=== PATIENT | male | born 1945 | race Caucasian/White ===

== ENCOUNTER → 2017-04-22 | Outpatient (CLI) | payer OTHER ==
[~2017-04-22] MED LIST: AMLO-110 PO; APPLTAB2 PO; ASCO500T87 PO; ASPI81TA28 PO; CLOB0.0529 EX; CMD5 PO; FRS/40 PO; GLUC10007 PO; GLUCTAB7 PO; LISI40TA PO; LSN40 PO; METR0.754 TOP; MULT-506 PO; OXYC-57 PO; PRLSR20 PO; VITA1TAB12 PO; VTMD1000 PO; WARF5TAB7 PO; [UNRECOGNIZED DRUG - CODE]
== END | disposition home or self-care (01) ==
LOC: C.RDSM 09:20
PROVIDERS: ATTEND Orthopaedic Surgery Sports Medicine
DX: M25.511 Pain in right shoulder (principal)

== ENCOUNTER → 2017-05-03 | Outpatient (CLI) | payer OTHER ==
[2017-04-29 15:06] VITALS: Ht 180.3 cm; Wt 84.1 kg
[~2017-05-03] VITALS: Ht 180.3 cm; Wt 84.1 kg
[~2017-05-03] MED LIST changes: -CMD5 PO; -GLUC10007 PO; -LSN40 PO; -[UNRECOGNIZED DRUG - CODE]
[2017-05-03 16:26] LABS: BASO % 1.2 %; BASO ABS # 0.12 K/uL (0-0.2); COMPLETE YES; EOS % 3.9 %; HEMATOCRIT 45.5 % (42-52); IG% 0.3 %; LYMPH % 25.4 %; LYMPH ABS # 2.56 K/uL (1.2-3.4); MEAN CELL VOLUME 90.8 fL (80-100); MEAN CORPUSCULAR HEMOGLOBIN 29.7 pg (25-34); MEAN CORPUSCULAR HGB CONC 32.7 g/dl (32-36); MEAN PLATELET VOLUME 9.2 fL (7.4-10.4); MONO % 8.4 %; NEUT % 60.8 %; PLATELET COUNT 266 K/uL (130-400); RED BLOOD COUNT 5.01 M/uL (4.7-6.1); WHITE BLOOD COUNT 10.07 K/uL (4.8-10.8)
--- NOTE | 2017-05-03 16:41 | History and Physical ---
History & Physical Date May 03, 2017. Chief Complaint Right shoulder pain s/p fall History of Present Illness The patient is a 71 year old male with complaints of right shoulder pain and weakness s/p fall. Denies prior history of right shoulder injury or issues. Denies numbness or tingling. Reports symptoms affecting his life on a daily basis. Past Medical/Surgical History Medical Problems: (1) Cyst (2) Osteoarthritis (3) Radius distal fracture (4) Reflux (5) Hypertension (6) Atrial Fibrillation Surgical History (1) Hernia repair (2) Cataract surgery Additional History Hepatic Disease: No Endocrine Disorder: No Kidney Disease: No Hypertension: Yes Heart Disease: No Bleeding Tendencies: On chronic Warfarin secondary to A-Fib Infectious Diseases: No Other: Denies headache, chest pain, shortness of breath, fever, chills, night sweats Allergies Coded Allergies: Prednisone (Verified Allergy, Unknown, SWELLING,SICK TO STOMACH, 04/29/17) Home Medications Scheduled Amlodipine (Norvasc), 5 MG PO QAM Apple Cider Vinegar-Green Tea- (Apple Cider Vinegar Plus), 2 TABS PO QAM Ascorbic Acid (Vitamin C Tr/Corin Hips), 500 MG PO QAM Aspirin (Aspirin Ec), 81 MG PO QAM Cholecalciferol (Vitamin D3), 1 TAB PO QAM Furosemide (Lasix), 40 MG PO QAM Hmvqpnzvbbn-Elepunafwyk-Qlz C- (Glucosamine Chondroitin), 1 TAB PO QAM Lisinopril (Zestril), 40 MG PO QAM Multivitamin (Multivitamin), 1 TAB PO QAM Vitamin E (Vitamin E), 1 TAB PO QAM Warfarin Sod (Jantoven), 5 MG PO QPM Scheduled PRN Clobetasol Propionate (Clobetasol Propionate), 1 APPLN EX BID PRN for Documentation Metronidazole (Topical) (Metrocream), 1 APPLN TOP BID PRN for PRN Omeprazole (Prilosec), 20 MG PO DAILY PRN for Indigestion Physical Examination Skin: warm/dry, no rash Eyes: normal inspection, + pertinent finding (wearing corrective lenses/ glasses ) ENT: normal ENT inspection, + pertinent finding (dentures, no evidence of exudates, erythema) Head: normocephalic Respiratory/Chest: lungs clear, normal breath sounds, no respiratory distress Cardiovascular: no edema, + systolic murmur (appears to be a faint systolic murmur, diffucult to appreciate on auscultation ), + irregularly irregular, + abnormal rhythm Abdomen / GI: normal bowel sounds, non tender Extremities: normal inspection, + pertinent finding (RIGHT SHOULDER: significant decreased range of motion, difficult to perform provocative testing , such as a Vijaya's test, [place]out[place]'s, Neer, Pinzon, Crossbody, and liftoff. AC joint is nontender. Tenderness noted over the LHB tendon. Elbow atraumatic.) Neurologic/Psych: no motor/sensory deficits, alert, oriented x 3 Diagnosis Right shoulder rotator cuff tear, biceps tendinosis Plan of Treatment Alberto will undergo a Right shoulder athroscopy, rotator cuff and labral repair vs. debridement, biceps tenotomy vs. tenodesis, subacromial decompression, exam under anesthesia by Dr. Quintin Sims MD from [facility] at the [facility] on 05/17/17. [facility] will obtain pre-operative testing at the [facility] with EKG, CBC, BUN, Creatinine, Lytes, PT/INR on 05/03/17. Medical clearance by PCP Dr. Bradley and Cardiology Dr. Howard are to be obtained the week of 05/09/17 and 05/10/17, respectively, along with a stress test on . [facility] has been advised to discontinue his Warfarin 5 days pre-operatively by his PCP and will also need to determine whether he requires bridging during those 5 days without Warfarin. He is to discontinue his Aspirin 7-10 days pre- operatively. He can take his Amlodipine the AM of surgery with a sip of water per Preadmission Testing. This PAT interview took place over the phone on advising of which medications to stop and take. No other medications the morning of surgery. Physical therapy begins postop day [address] Sims at [facility] 2 weeks after surgery for suture removal and post-op check.
[2017-05-03 16:47] LABS: BUN/CREATININE RATIO 13.2 (10-20); CALCIUM 8.9 mg/dl (8.5-10.1); CREATININE 0.99 mg/dl (0.60-1.40); POTASSIUM 3.6 mmol/L (3.5-5.1)
[2017-05-03 16:56] LABS: INR 2.2 (0.9-1.1); PARTIAL THROMBOPLASTIN RATIO 1.9; PROTHROMBIN TIME (PATIENT) 24.4 SECONDS (9.0-12.0)
== END | disposition home or self-care (01) ==
LOC: C.LAB 08:00 → EDSTATUS 05-20 10:21
PROVIDERS: ATTEND Orthopaedic Surgery Sports Medicine
DX: Z01.818 Encounter for other preprocedural examination (principal)

== ENCOUNTER 2017-05-20 10:40 | Observation (INO) | payer OTHER ==
[2017-05-18 14:26] VITALS: BMI 25.0
--- NOTE | 2017-05-19 17:18 | HISTORY & PHYSICAL EXAMINATION ---
DATE OF ADMISSION: 05/20/2017 HISTORY AND PHYSICAL ADMISSION NOTE CHIEF COMPLAINT: Right rotator cuff tear. HISTORY OF PRESENT ILLNESS: Alberto is a pleasant 72-year-old right hand dominant male who sustained a fall in his garage. 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 He tripped and fell, landed on his right shoulder and significant pain and discomfort. He was seen by another provider in the area, but unfortunately due to insurance reasons, was unable to proceed with surgery. Ultrasound of the shoulder did show a supraspinatus rotator cuff tear. After failing conservative treatment, he has elected to proceed with arthroscopy. PAST MEDICAL HISTORY: Significant for atrial fibrillation and hypertension. PAST SURGICAL HISTORY: Significant for a hernia repair, a cyst removed from his tailbone and cataracts to both eyes. ALLERGIES: PREDNISONE. MEDICATIONS: Include lisinopril, amlodipine, aspirin, Coumadin, and Lasix. FAMILY HISTORY: Noncontributory. SOCIAL HISTORY: He is , never drinks. Denies any tobacco or drug use. He is active and has 2 kids. REVIEW OF SYSTEMS: He complains of right shoulder pain and weakness. All other pertinent review of systems are negative. PHYSICAL EXAMINATION: GENERAL: He is awake, alert and oriented x3. He is in no apparent distress. He is very pleasant. HEENT: Pupils are equal, round and reactive to light. Extraocular motion intact. Oral mucosa is pink and moist. HEART: Regular rate per radial pulse. LUNGS: Corin symmetrically bilaterally with no audible breath sounds. ABDOMEN: Soft, nontender, nondistended. MUSCULOSKELETAL: On physical examination of the right shoulder, he has decreased active range of motion with about 110 degrees of forward flexion, 100 degrees of abduction. He has 4/5 muscle strength with full can testing and external rotation, positive belly press test. Significant tenderness to palpation of the far anterior lateral subacromial space, mild biceps patricia tenderness. No AC pain. IMAGING: Ultrasound report reviewed in the office shows he has a full thickness supraspinatus tear. No signs of any subscapularis pathology. IMPRESSION: Large right rotator cuff tear. PLAN: Will proceed with a right shoulder arthroscopy to include rotator cuff repair. Postoperatively, he will be placed in an arm sling and discharged to home on oral pain medications.
[~2017-05-20] VITALS: Ht 177.8 cm; Wt 86.0 kg
[2017-05-20] VITALS (8 sets, daily range): BP systolic 109–150; BP diastolic 65–82; PULSE 73–89; TEMP 36.7–36.9; O2SAT 95–97; Ht 177.8 cm; Wt 86.0 kg
[~2017-05-20 10:40] MED LIST changes: +CEFAZOLIN 2000 MG/60 ML D5W 60 ML IV SCH; +LACTATED RINGER'S 1000ML 1,000 ML IV SCH; -OXYC-57 PO; +ROPIVACAINE 0.5% 5 MG/ML 30 ML VIAL ONE
--- NOTE | 2017-05-20 10:56 | History & Physical Bridge Note ---
H&P Re-Evaluation Bridge Note: I have examined the patient, reviewed the History & Physical and in the interval since the performance of the History & Physical I have noted the following changes of clinical significance: No changes noted
[2017-05-20] MEDS ORDERED: MIDAZOLAM HCL 1 MG/ML 2ML VIAL ONE (11:56)
[2017-05-20] MEDS ORDERED: FENTANYL CITRATE INJ 50 MCG/1 ML 2 ML VIAL ONE ×2 (11:56→14:13)
[2017-05-20] MEDS: LACTATED RINGER'S 1000ML IV SCH (11:57)
[2017-05-20] MEDS ORDERED: EpINEphrine HCL INJ 1 MG/ML 5ML SYRINGE ONE (12:26)
[2017-05-20] MEDS ORDERED: BUPIVACAINE/EPINEPHRINE 0.5% MPF 1:200,000 30 ML VIAL ONE (12:26)
[2017-05-20 12:43] LABS: INR 1.4 (0.9-1.1); PARTIAL THROMBOPLASTIN RATIO 1.5; PROTHROMBIN TIME (PATIENT) 14.9 SECONDS (9.0-12.0)
[2017-05-20] MEDS ORDERED: LIDOCAINE HCL 2% 2 ML VIAL (20MG/ML) ONE (13:14)
[2017-05-20] MEDS ORDERED: PROPOFOL IV EMULSION 10 MG/ML 20 ML VIAL IV ONE (13:14)
[2017-05-20] MEDS ORDERED: ONDANSETRON INJ 2 MG/ML 2 ML VIAL ONE (13:14)
[2017-05-20] MEDS ORDERED: GLYCOPYRROLATE INJ 0.2 MG/ML VIAL ONE (13:14)
[2017-05-20] MEDS ORDERED: NEOSTIGMINE METHYLSULFATE 5 MG/5 ML SYR ONE (13:14)
[2017-05-20] MEDS ORDERED: DEXAMETHASONE SOD INJ 4 MG/ML VIAL ONE (13:14)
[2017-05-20] MEDS ORDERED: ROCURONIUM BROMIDE 10 MG/ML 5 ML VIAL IV ONE (13:15)
[2017-05-20] MEDS ORDERED: PHENYLEPHRINE HCL INJ 10 MG/ML VIAL ONE (13:17)
[2017-05-20] MEDS ORDERED: EpHEDrine SULFATE INJ 50 MG/ML AMP ONE (13:17)
[2017-05-20] MEDS ORDERED: ESMOLOL HCL 10 MG/ML 10 ML VIAL ONE (13:17)
[2017-05-20] MEDS ORDERED: OXYC-57 PO (14:47)
--- NOTE | 2017-05-20 14:47 | [facility] Post Operative Brief Note ---
Immediate Operative Summary Operative Date May 20, 2017. Pre-Operative Diagnosis Large Rotator Cuff Tear Post-Operative Diagnosis Same as preoperative Procedure(s) Performed Right Shoulder Arthroscopic Large Rotator Cuff Repair and Biceps Tenodesis Surgeon Dr. Williams Downs Sorority Supervisor Surgeon(s) Chucho Mcclain PA-C Estimated Blood Loss 5cc Findings as above Specimens A.) None per surgeon Complication(s) None Disposition Recovery Room / PACU
--- NOTE | 2017-05-20 14:48 | Discharge Instructions ---
Discharge Instructions Date of Service May 20, 2017. Admission Reason for Admission: Right Shoulder Full Thickness Rotator Cuff Tear Discharge Discharge Diagnosis / Problem: SAME ABOVE Discharge Goals Goal(s): Decrease discomfort, Improve function Activity Recommendations Activity Limitations: as noted below Lifting Limitations: until after follow-up appointment Exercise/Sports Limitations: until after follow-up appointment Shower/Bathe: may shower/bathe in 3 days Driving or Machine Use: MAY NOT DRIVE UNTIL SEEN FOR FOLLOW-UP . Instructions / Follow-Up Instructions / Follow-Up MEDICATIONS: * Resume previous medications unless instructed otherwise by your surgeon. * Always take pain medication on a full stomach or with food to avoid upset stomach. * Do not drink alcohol or drive while taking narcotics. * Ibuprofen or Tylenol may be taken if narcotic not needed. SPECIAL CARE INSTRUCTIONS: __ None _X_ Keep extremity elevated and iced x 48 hours; apply ice 20-30 minutes 8-10 times/day. May remove at night. __ Sling __24 hrs/day __ Remove at night _X_ Shoulder Immobilizer (MAY REMOVE AFTER 48 HOURS ONLY TO SHOWER AND FOR THERAPY) _X_ 24 hrs/day __ Remove at night _X_ Dressing __ Maintain until seen in office, may shower with plastic over site _X_ Remove dressings in 24-48 hours and then may shower _X_ Cover incisions with band-aids after showering __ Do not remove steri-strips Call physician if chills or temperature rises above 102 degrees or pain unrelieved by prescribed pain medications at . . Current Hospital Diet Patient's current hospital diet: Discharge Diet Recommended Diet: Regular Diet Fluid Restriction: None Procedures Procedures Performed: Right Shoulder Arthroscopic Large Rotator Cuff Repair and Biceps Tenodesis Pending Studies Studies pending at discharge: no Medical Emergencies . Who to Call and When: Medical Emergencies: If at any time you feel your situation is an emergency, please call 911 immediately. . Non-Emergent Contact Non-Emergency issues call your: Primary Care Provider Call Non-Emergent contact if: you have a fever, temperature is above 101.5 . "Provider Documentation" section prepared by Isai Mcclain. . VTE Core Measure Inpt VTE Proph given/why not?: SCD's
[2017-05-20] MEDS ORDERED: METOCLOPRAMIDE HCL INJ 5 MG/ML 2 ML VIAL IV PRN (15:00)
[2017-05-20] MEDS ORDERED: MoRPHine SULFATE 2 MG/ML CARP IV PRN (15:00)
[2017-05-20] MEDS ORDERED: ONDANSETRON INJ 2 MG/ML 2 ML VIAL IV PRN ×2 (15:00→15:30)
[2017-05-20] MEDS ORDERED: NALOXONE HCL 0.4 MG/1 ML VIAL/CARP IV PRN (15:00)
--- NOTE | 2017-05-20 15:04 | Anesthesiology Progress Note ---
Anesthesia Post Op Note Date & Time May 20, 2017 at 15:04 Vital Signs Pain Intensity: 0 Vital Signs Past 12 Hours Date Time Temp Pulse Resp B/P (MAP) Pulse Ox O2 Delivery O2 Flow Rate FiO2 05/20/17 14:50 36.8 115 16 126/91 98 Mask 10 05/20/17 11:26 36.8 82 20 138/79 (98) Room Air 100 Notes Mental Status: alert / awake / arousable, participated in evaluation Pt Amnestic to Procedure: Yes Nausea / Vomiting: adequately controlled Pain: adequately controlled Airway Patency, RR, SpO2: stable & adequate BP & HR: stable & adequate Hydration State: stable & adequate Anesthetic Complications: no major complications apparent
--- NOTE | 2017-05-20 15:14 | OPERATIVE REPORT ---
DATE OF OPERATION: 05/20/2017 PREOPERATIVE DIAGNOSIS: Large right rotator cuff tear. POSTOPERATIVE DIAGNOSIS: Same. PROCEDURE: Right shoulder diagnostic arthroscopy with limited debridement, acromioplasty, large rotator cuff repair and arthroscopic biceps tenodesis. SURGEON: Dr. Williams Downs. BOTTLING ROOM WORKER: Chucho Mcclain PA-C, whose assistance was necessary for positioning the arm and helping with instrumentation. ANESTHESIA: General with a right interscalene nerve block. COMPLICATIONS: None. CONDITION: Stable to PACU. INDICATIONS: Alberto is a pleasant 72-year-old male who fell on his garage about a month ago. He sustained a right shoulder injury. He had difficulty forward elevating his arm and severe pain. Ultrasound and clinical examination were diagnostic for rotator cuff tear. After failing conservative treatment, he elected to undergo arthroscopy. DESCRIPTION OF PROCEDURE: On 05/20/2017, he arrived at [facility] for the above procedure. He was seen in the preoperative holding area and the operative extremity was identified and signed. He was given a preoperative antibiotic and a right interscalene nerve block. He was taken back to the operating room, laid on the table in supine position and put under general anesthesia. He was then put into the beachchair position. The right shoulder was prepped and draped in sterile fashion. Time-out was done and the patient and operative extremity was properly identified. A scope was introduced into the posterior portal. Diagnostic arthroscopy showed some grade 4 chondral changes on the upper border of the humeral head. The glenoid looked okay. There was some fraying of the anterior labrum. The biceps tendon was subluxated medially and was significantly frayed. There was a tear of the upper border of the subscapularis and a tear of the entire supraspinatus. The infraspinatus and teres minor were intact. An anterior portal was made. A shaver was used to do a debridement of the intraarticular structures and the biceps tendon was arthroscopically tenotomized. The scope was then put into the subacromial space. A lateral portal was made. A shaver was used to do a complete subacromial and subdeltoid bursectomy. An ablator was used to tease the coracoacromial ligament off the undersurface of the acromion and a 5-0 jacqueline was used to complete an acromioplasty of a Bigliani type 3 acromion. A shaver was used to remove any excess debris and attention was turned to the rotator cuff. It was a large anterior superior tear. The greater tuberosities and lesser tuberosities were prepared with a ring curette and a microfracture. The rotator cuff was then fixed with an Arthrex suspension bridge configuration using 4.75-mm BioComposite SwiveLock suture anchors along the medial row. Three anchors were used along the medial row. Each anchor was loaded with FiberTapes and the tapes were passed through the tendon at the anticipated articular margin. A FiberTape from each anchor was brought down to 1 of 3 lateral row SwiveLock suture anchors. This gave a nice knotless SpeedBridge repair. The repair incorporated the entire subscapularis and the upper border of the subscapularis. The long head of the biceps tendon was tagged with a FiberLink suture and incorporated in one of the lateral row SwiveLock suture anchors. Multiple pictures were taken. The scope was placed back into the glenohumeral joint and the articular margins of the rotator cuff had been restored. Pictures were taken. Arthroscopic instruments removed from the shoulder. Portal sites were closed with 3-0 nylon. He was then placed in a soft dressing and an abduction arm sling. He was then extubated, transferred to a litter and taken to the postanesthesia care unit in stable condition. He tolerated the procedure well. I attest to the content of the Intraoperative Record and any orders documented therein. Any exception s are noted below.
[2017-05-20] MEDS ORDERED: PHENYLEPHRINE 100MCG/ML 5ML SYR IV PRN (15:30)
[2017-05-20] MEDS ORDERED: HYDROmorphone INJ 2 MG/ML SYR/VIAL IV PRN (15:30)
[2017-05-20] MEDS ORDERED: ATROPINE SULFATE 0.1 MG/ML 5ML SYR IV PRN (15:30)
[2017-05-20] MEDS ORDERED: EpHEDrine SULFATE INJ 50 MG/ML AMP IV PRN (15:30)
[2017-05-20] MEDS ORDERED: IV FLUIDS COMPLETED PRN (16:30)
[2017-05-20] MEDS ORDERED: NURSING VERBAL MED ORDER ONE ×2 (17:45→18:00)
[2017-05-20] MEDS ORDERED: POTASSIUM CHLORIDE INJ 10 MEQ in SODIUM CHLORIDE 0.9% 1000ML 1,000 ML IV SCH (18:00)
[2017-05-20] MEDS ORDERED: WARFARIN SOD 5 MG TAB PO SCH (18:00)
[2017-05-21 00:03] VITALS: BP 127/64; PULSE 84; TEMP 36.8; O2SAT 95
[2017-05-21] MEDS: OXYCODONE/ACETAMINOPHEN 5-325 TAB PO PRN ×2 (00:05→07:16)
[2017-05-21 03:14] VITALS: BP 143/78; PULSE 88; TEMP 36.7; O2SAT 92
[2017-05-21 07:16] VITALS: BP 150/81; PULSE 91; TEMP 36.8; O2SAT 95
[2017-05-21 07:39] LABS: INR 1.3 (0.9-1.1); PROTHROMBIN TIME (PATIENT) 14.3 SECONDS (9.0-12.0)
[2017-05-21] MEDS ORDERED: PANTOprazole SOD 40 MG TAB PO SCH (09:00)
[2017-05-21] MEDS ORDERED: LISINOPRIL 40 MG TAB PO SCH (09:00)
[2017-05-21] MEDS ORDERED: AMLODIPINE BESYLATE 5 MG TAB PO SCH (09:00)
[2017-05-21] MEDS ORDERED: FUROSEMIDE 40 MG TAB PO SCH (09:00)
[2017-05-21] MEDS ORDERED: ASPIRIN 81 MG ECTAB PO SCH (09:00)
[2017-05-21 09:27] VITALS: BP 150/81; PULSE 91; TEMP 36.8; O2SAT 95
--- NOTE | 2017-05-21 09:29 | PROGRESS NOTE ---
DATE: 05/21/2017 DATE: 05/21/2017 CHIEF COMPLAINT: Status post right rotator cuff repair postop day #1. PROGRESS: Alberto was seen and examined at bedside today. Overall, he is doing fairly well. He is having a lot of pain in his shoulder. He did not have any acute events last night, his heart monitor looked fine. He had no complaints. PHYSICAL EXAMINATION: RIGHT SHOULDER: The dressing is clean and dry. He is wearing a sling as instructed. He is neurovascularly intact. VITAL SIGNS: This morning due do show he is a little hypertensive and slightly tachycardic but he seemed to be stable throughout the night. He is voiding on his own. IMPRESSION: Status post right shoulder rotator cuff repair postop day #1. PLAN: At this point, he is doing well. I talked to the nursing staff who was monitoring him throughout the night and they said they did not notice anything on his heart monitor and that he has been doing very well. I feel comfortable discharging him home this morning on oral pain medications.
--- NOTE | 2017-05-21 09:31 | DISCHARGE SUMMARY ---
DATE OF DISCHARGE: 05/21/2017 DISCHARGE DIAGNOSIS: Status post right rotator cuff repair with history of pulmonary hypertension. PROCEDURE: Right arthroscopic rotator cuff repair on 05/20/[address] Williams Downs. DISCHARGE INSTRUCTIONS: 1. Oxycodone 1-2 tabs every 6 hours as needed for pain. 2. Norvasc 5 mg daily. 3. Aspirin 81 mg daily. 4. Lasix 40 mg daily. 5. Zestril 40 mg daily. 6. Prilosec 20 mg daily. 7. Coumadin 5 mg daily. 8. Follow up with Dr. Downs in 2 weeks. 9. Right arm sling for 6 weeks. 10. Call the office of Dr. Downs with any questions or concerns. HOSPITAL COURSE: Alberto is a 72-year-old male who presented to my office a month after falling in the garage. He sustained a large anterior superior rotator cuff tear. He elected to undergo repair. On 05/20/2017 he arrived at [facility] and underwent an arthroscopic rotator cuff repair without complication. Because of his history of pulmonary hypertension anesthesia recommended him monitored throughout the night. They did not necessarily recommend any medicine or cardiology consultation as long as he was stable throughout the night. On postop day #1, he was doing well. I talked to the nursing staff and they said he was stable throughout the night. His vital signs were stable. He was feeling good. He was having some pain in his shoulder, but he was up and ambulating around. I subsequently discharged him to home with the above instructions.
== END 2017-05-21 10:09 | disposition home or self-care (01) ==
LOC: C.ACU 10:40 → C.2T 15:03 → ENRESERV 15:28
PROVIDERS: ADMIT Orthopaedic Surgery; ATTEND Orthopaedic Surgery
DX: S46.011A Strain of muscle(s) and tendon(s) of the rotator cuff of right shoulder, initial encounter (principal); W01.0XXA Fall on same level from slipping, tripping and stumbling without subsequent striking against object, initial encounter; I48.91 Unspecified atrial fibrillation; I10 Essential (primary) hypertension; I27.2 Other secondary pulmonary hypertension; Z79.01 Long term (current) use of anticoagulants; Z79.82 Long term (current) use of aspirin; Z79.899 Other long term (current) drug therapy; Y92.008 Other place in unspecified non-institutional (private) residence as the place of occurrence of the external cause

== ENCOUNTER 2022-02-21 12:02 | Inpatient (IN) ==
[2022-02-21] MEDS ORDERED: MoRPHine SULFATE 4 MG/ML 1 ML CARP\\VIAL IV STA (12:27)
[2022-02-21] MEDS ORDERED: ONDANSETRON INJ 2 MG/ML 2 ML VIAL IV STA (12:27)
--- NOTE | 2022-02-21 12:35 | Emergency Department Note ---
History of Present Illness General Chief complaint: Flank Pain Stated complaint: RT SIDED FLANK PAIN Time Seen by Provider: 02/21/22 12:10 History of Present Illness Maximum Pain Intensity: 10 This 76-year-old male presents today with his , for evaluation of right flank pain that began yesterday. He was hoping the pain would go away, but it has become worse. He has a distant history of kidney stones approximately 15 to 20 years ago. He denies any trauma. Pain is colicky. He states he had no problem urinating yesterday during the day, but had some difficulty with hesitancy, frequency, and incomplete voiding last night. He tried to use a heating pad for relief last night. It did not help. He is nauseated. No vomiting. No other cold type symptoms. No chest pain or shortness of breath. Pain is in the right flank only and does not radiate to the abdomen or groin. D enies any rudi hematuria. No other treatment. Patient does have a history of A. fib and is on Coumadin. He states he is miserable because of the pain. Home Medications Medication Instructions Recorded Confirmed Type amlodipine 5 mg tablet 5 mg PO QAM 06/14/18 02/21/22 History aspirin 81 mg tablet,delayed 81 mg PO QAM 06/14/18 02/21/22 History release (Mendel Low Dose Aspirin) furosemide 40 mg tablet 40 mg PO QAM 06/14/18 02/21/22 History lisinopril 40 mg tablet 40 mg PO QAM 06/14/18 02/21/22 History glucosamine sulfate 1,000 mg 1,000 mg PO DAILY 06/22/18 02/21/22 History capsule tpjgenke-myy-hiqve acid 300 1 tab PO DAILY 06/22/18 02/21/22 History mcg-lycopene 600 mcg-lutein 300 mcg tablet (Centrum Silver Men) tretinoin 0.025 % topical cream 1 applic TOPICAL HS 06/22/18 02/21/22 History triamcinolone acetonide 0.1 % 1 applic TOPICAL BID PRN 06/22/18 02/21/22 History topical cream albuterol sulfate 90 mcg/actuation 2 puff INHALATION Q4 PRN 02/21/22 02/21/22 History aerosol inhaler amoxicillin 875 mg-potassium 1 tab PO AMHS 02/21/22 02/21/22 History clavulanate 125 mg tablet omeprazole 20 mg capsule,delayed 20 mg PO DAILY 02/21/22 02/21/22 History release warfarin 5 mg tablet See Rx Instructions .ROUTE .COMPLEX 02/21/22 02/21/22 History Allergies Allergy/AdvReac Type Severity Reaction Status Date / Time petrolatum,white Allergy Unknown Redness of Verified 02/21/22 15:24 [From Vaseline] Skin prednisone Allergy Unknown SWELLING,SICK Verified 02/21/22 15:25 TO STOMACH atenolol AdvReac Unknown Hypertensio Verified 02/21/22 15:24 n strawberry AdvReac Unknown Unknown Verified 02/21/22 15:24 chocolate AdvReac Unknown Uncoded 02/21/22 15:24 Past Med/Surg History Medical History (Updated 02/24/22 @ 07:01 by Anthony Linares PA-C) Atrial fibrillation CHRONIC/PERSISTENT S/P CARDIOVERSION (07/2016) Congestive heart failure EF 40% in 2018 Hypertension Hyponatremia Kidney stones Lung disease emphysema and fibrotic changes on chest CT Osteoarthritis Pulmonary HTN SEVERE (PASP 68MMHG) Retained metal fragment IN EYE (NO MRI) Smoker Valvular disease MODERATE TO SEVERE AR, POSSIBLE SEVERE MR (NOT PRECISE), SEVERE TR PER 06/06/18 ECHO Surgical History History of cataract surgery BILATERAL History of repair of rotator cuff AND BICEP REPAIR (RIGHT) Family History Father Family history of diabetes mellitus Social History Smoking Status: Current some day smoker Tobacco Type: Cigars Second Hand Exposure: No; Hx Alcohol Use: No Hx Substance Use: No Preferred Language: Belarusian Communication Ability: Effective 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 Beliefs That Will Affect Care: None marital status: Current Living Situation: Spouse How many Children do You have: 2 Feels Safe at Home: Yes Assistive Devices: None Review of Systems A total of 10 systems reviewed and were otherwise negative Physical Exam Vital Signs Vital Signs - 24 hr 02/21/22 12:02 02/21/22 12:05 02/21/22 12:28 Temperature 36.4 C L Temperature Source Temporal Artery Scan Pulse Rate 92 H Pulse Rate [Left Apical] Pulse Rhythm [Left Apical] Pulse Strength [Left Apical] Respiratory Rate 20 18 Respiratory Effort / Characteristics Non-Labored Non-Labored Respiratory Depth Normal Normal Respiratory Pattern Regular Blood Pressure 172/93 H Blood Pressure [Left Arm] Blood Pressure Mean 119 Blood Pressure Mean [Left Arm] Blood Pressure Position [Left Arm] Pulse Oximetry 96 94 Oxygen Delivery Method Room Air Room Air Sepsis Recent Fever Within 48 Hours No Sepsis New/Unexplained Change in Mental Status N/A Sepsis Action Taken by Nursing No Action Required 02/21/22 12:46 02/21/22 13:32 02/21/22 15:00 Temperature Temperature Source Pulse Rate Pulse Rate [Left Apical] 93 H 85 89 Pulse Rhythm [Left Apical] Regular Regular Pulse Strength [Left Apical] Normal Normal Respiratory Rate 16 18 20 Respiratory Effort / Characteristics Non-Labored Non-Labored Respiratory Depth Normal Normal Respiratory Pattern Blood Pressure Blood Pressure [Left Arm] 156/84 H 162/84 H Blood Pressure Mean Blood Pressure Mean [Left Arm] 108 110 Blood Pressure Position [Left Arm] Lying Pulse Oximetry 94 92 90 Oxygen Delivery Method Room Air Room Air Room Air Sepsis Recent Fever Within 48 Hours Sepsis New/Unexplained Change in Mental Status Sepsis Action Taken by Nursing General: Well-developed, well-nourished, elderly white male, in obvious discomfort. Sitting on the bed. Alert and oriented. He is restless. Skin: Warm and dry with fair turgor. No rashes or open lesions. No ecchymosis. He has diffuse erythema present over his right flank and onto the right upper buttock. These are first-degree thermal orellana from his heating pad. No blistering. The patient is not diaphoretic. No abrasions. Heart: Heart irregularly irregular. No MGR. Peripheral pulses are 2+. Lungs: Lungs are clear to auscultation. No crackles rhonchi or wheezing. Good air movement. The patient is able to take a deep breath. Abdomen: Abdomen was inspected, auscultated, and palpated. Mildly obese. Bowel sounds present x 4. Soft, mild tenderness to palpation in the right lower quadrant. No hepato-splenomegaly. No masses noted. No rebound. He has right- sided CVA tenderness. This extends around to the right flank. No symptoms on the left. Musculoskeletal: Gross motor function of the upper and lower extremities is intact and unremarkable. Neurologic: Gross sensation is intact across the upper and lower extremities by soft touch. Course Administered Medications Discontinued Medications Acetaminophen (Acetaminophen 325 Mg Tab) 650 mg PO Q4H PRN PRN Reason: Pain or Fever Stop: 03/23/22 15:44 Last Admin: 02/22/22 20:00 Dose: 650 mg Documented by: [id number] Hydrox/Mg Hydrox/Simethicone (Aluminum/Magnesium/Simeth (Maalox Max) 30 Ml Udc) 30 ml PO Q6H PRN PRN Reason: Heartburn Stop: 03/25/22 05:08 Last Admin: 02/23/22 05:34 Dose: 30 ml Documented by: [id number] Amlodipine Besylate (Amlodipine Besylate 5 Mg Tab) 5 mg PO [facility] Stop: 03/24/22 08:59 Last Admin: 02/23/22 08:23 Dose: 5 mg Documented by: [id number] Admin: 02/22/22 08:34 Dose: 5 mg Documented by: [id number] Amoxicillin/Clavulanate Potassium (Amoxicillin/Clavulanate 875 Mg Tab) 1 tab [facility] Stop: 02/26/22 07:59 Last Admin: 02/23/22 08:23 Dose: 1 tab Documented by: [id number] Admin: 02/22/22 16:40 Dose: 1 tab Documented by: [id number] Admin: 02/22/22 08:33 Dose: 1 tab Documented by: [id number] Aspirin (Aspirin 81 Mg Ectab) 81 mg PO [facility] Stop: 03/24/22 08:59 Last Admin: 02/23/22 08:23 Dose: 81 mg Documented by: [id number] Admin: 02/22/22 08:34 Dose: 81 mg Documented by: [id number] Diatrizoate Meglumine (Diatrizoate Meglumine 30% 100ml Vial) 20 ml INSTIL ONCE ONE Stop: 02/21/22 21:55 Last Admin: 02/21/22 21:55 Dose: 20 ml Documented by: [id number] Furosemide (Furosemide 40 Mg Tab) 40 mg PO [facility] Stop: 03/24/22 08:59 Last Admin: 02/23/22 08:23 Dose: 40 mg Documented by: [id number] Admin: 02/22/22 08:34 Dose: 40 mg Documented by: [id number] Sodium Chloride (Nss 1000ml) 1,000 mls @ 80 mls/hr IV .[id number] CARMELINA Stop: 03/23/22 14:59 Last Admin: 02/22/22 15:44 Dose: Not Given Documented by: [id number] Infusion: 02/22/22 15:43 Dose: 0 mls/hr Documented by: [id number] Admin: 02/22/22 11:01 Dose: 80 mls/hr Documented by: [id number] Infusion: 02/22/22 02:52 Dose: 80 mls/hr Documented by: [id number] Infusion: 02/21/22 17:15 Dose: 80 mls/hr Documented by: [id number] Admin: 02/21/22 15:24 Dose: 125 mls/hr Documented by: [id number] Cefazolin Sodium (Ancef 2000mg) 2,000 mg in 15 mls @ 3.75 mls/min IV ONCE ONE Stop: 02/21/22 21:55 Last Admin: 02/21/22 21:19 Dose: 3.75 mls/min Documented by: [id number] Ceftriaxone Sodium 2,000 mg/ (Dextrose) 70 mls @ 100 mls/hr IV ONE ONE; Protocol Stop: 02/22/22 08:41 Last Infusion: 02/22/22 09:19 Dose: 0 mls/hr Documented by: [id number] Admin: 02/22/22 08:34 Dose: 100 mls/hr Documented by: [id number] Ipratropium Deerton (Ipratropium Deerton Neb Soln 0.02% 2.5 Ml Vial) 0.5 mg INH Q6H PRN PRN Reason: Shortness Of Breath Or Wheezing Stop: 03/23/22 16:44 Last Admin: 02/22/22 15:58 Dose: 0.5 mg Documented by: [id number] Levalbuterol HCl (Levalbuterol 1.25mg/0.5ml Neb) 1.25 mg INH Q6H PRN PRN Reason: Shortness Of Breath Or Wheezing Stop: 03/23/22 16:44 Last Admin: 02/22/22 15:57 Dose: 1.25 mg Documented by: [id number] Lisinopril (Lisinopril 40 Mg Tab) 40 mg PO QAM CARMELINA Stop: 03/24/22 18:14 Last Admin: 02/23/22 08:22 Dose: 40 mg Documented by: [id number] Admin: 02/22/22 20:00 Dose: 40 mg Documented by: [id number] Miscellaneous (*Tretinoin 0.025 % Cream* Order Awaiting Action) 1 ea N/A QS [facility] Stop: 03/24/22 00:00 Last Admin: 02/23/22 08:23 Dose: Not Given Documented by: [id number] Admin: 02/23/22 00:49 Dose: Not Given Documented by: [id number] Admin: 02/22/22 16:40 Dose: Not Given Documented by: [id number] Admin: 02/22/22 08:35 Dose: Not Given Documented by: [id number] Admin: 02/21/22 23:55 Dose: Not Given Documented by: [id number] Morphine Sulfate (Morphine Sulfate 4 Mg/Ml 1 Ml Carp\Vial) 4 mg IV NOW STA Stop: 02/21/22 12:28 Last Admin: 02/21/22 12:42 Dose: 4 mg Documented by: [id number] Morphine Sulfate (Morphine Sulfate 4 Mg/Ml 1 Ml Carp\Vial) 3 mg IV Q3H PRN PRN Reason: Pain Stop: 03/07/22 16:32 Last Admin: 02/22/22 04:56 Dose: 3 mg Documented by: [id number] Admin: 02/21/22 19:51 Dose: 3 mg Documented by: [id number] Admin: 02/21/22 16:53 Dose: 3 mg Documented by: [id number] Ondansetron HCl (Ondansetron Inj 2 Mg/Ml 2 Ml Vial) 4 mg IV NOW STA Stop: 02/21/22 12:28 Last Admin: 02/21/22 12:41 Dose: 4 mg Documented by: [id number] Pantoprazole Sodium (Pantoprazole 40 Mg Tab) 40 mg PO DAILY [facility]; Protocol Stop: 03/24/22 08:59 Last Admin: 02/23/22 08:23 Dose: 40 mg Documented by: [id number] Admin: 02/22/22 08:34 Dose: 40 mg Documented by: [id number] Phytonadione (Phytonadione 5 Mg Tab) 2.5 mg PO NOW ONE Stop: 02/22/22 10:01 Last Admin: 02/22/22 11:00 Dose: 2.5 mg Documented by: [id number] Medical Decision Making Differential Diagnosis Ureterolithiasis, renal colic, UTI, pyelonephritis, muscle strain, colitis, appendicitis Medical Records Attestation: I reviewed the patient's medical records. Home Medications Current Medication List: was personally reviewed by me Laboratory Data CBC, chemistry panel, UA, and COVID test were obtained today. WBCs elevated at 21.29, normal H&H, mildly low sodium at 130, BUN 26, creatinine 1.03. Total bili is mildly elevated at 1.7. Urine shows 1+ blood without bacteria, nitrates, or leukocyte Estrace. COVID test is negative. Result diagrams: 02/23/22 08:31 02/23/22 08:31 Lab Results 02/21/22 02/21/22 02/21/22 Range/Units 12:40 12:40 12:40 WBC 21.29 H (4.8-10.8) K/uL RBC 4.80 (4.7-6.1) M/uL Hgb 14.1 (14.0-18.0) g/dL Hct 42.0 (42-52) % MCV 87.5 (80-100) fL MCH 29.4 (25-34) pg MCHC 33.6 (32-36) g/dL RDW Std Deviation 54.5 H (36.4-46.3) fL RDW Coeff of Bertha 17.0 H (11.5-14.5) % Plt Count 332 (130-400) K/uL MPV 8.6 (7.4-10.4) fL Immature Gran % (Auto) 0.6 % Neut % (Auto) 78.2 % Lymph % (Auto) 17.1 % [place] % (Auto) 4.0 % Eos % (Auto) 0.1 % Baso % (Auto) 0.0 % Neut # (Auto) 16.64 H (1.4-6.5) K/uL Lymph # (Auto) 3.63 H (1.2-3.4) K/uL [place] # (Auto) 0.86 H (0.11-0.59) K/uL Eos # (Auto) 0.02 (0-0.5) K/uL Baso # (Auto) 0.01 (0-0.2) K/uL Immature Gran # (Auto) 0.13 H (0.00-0.02) K/uL Sodium 130 L (136-145) mmol/L Potassium 4.0 (3.5-5.1) mmol/L Chloride 93 L (98-107) mmol/L Carbon Dioxide 30 (21-32) mmol/L Anion Gap 7 (3-11) BUN 26 H (6-23) mg/dl Creatinine 1.03 (0.6-1.4) mg/dl Est Cr Clr Drug Dosing Not Reportable Est GFR ( Amer) 80.8 ml/min Est GFR (Non-Af Amer) 69.7 ml/min BUN/Creatinine Ratio 25.2 H (10-20) Glucose 137 H (70-99(Fasting)) mg/dl Calcium 9.6 (8.5-10.1) mg/dl Total Bilirubin 1.7 H (0.2-1.0) mg/dl AST 27 (13-39) U/L ALT 42 (7-52) U/L Alkaline Phosphatase 125 H (34-104) U/L Total Protein 8.3 (6.0-8.3) gm/dl Albumin 4.4 (3.4-5.0) gm/dl Globulin 3.9 (2.5-4.0) gm/dl Albumin/Globulin Ratio 1.1 (0.9-2) Lipase 7 L (11-82) U/L Urine Color Yellow Urine Appearance Clear (Clear) Urine pH 7.5 (4.5-7.5) Ur Specific [place] 1.015 (1.000-1.030) Urine Protein Negative (Negative) Urine Glucose (UA) Negative (Negative) Urine Ketones Negative (Negative) Urine Blood 1+ H (Negative) Urine Nitrite Negative (Negative) Urine Bilirubin Negative (Negative) Urine Urobilinogen Negative (Negative) Ur Leukocyte Esterase Negative (Negative) Urine WBC (Auto) 1-5 (0-5) /hpf Urine RBC (Auto) 0-4 (0-4) /hpf U Hyaline Cast (Auto) 0 (0-5) /lpf U Epithel Cells (Auto) 0-5 (0-5) /lpf Urine Bacteria (Auto) Negative (Negative) SARS-CoV-2, RNA, NAAT (NEGATIVE) 02/21/22 Range/Units 15:16 WBC (4.8-10.8) K/uL RBC (4.7-6.1) M/uL Hgb (14.0-18.0) g/dL Hct (42-52) % MCV (80-100) fL MCH (25-34) pg MCHC (32-36) g/dL RDW Std Deviation (36.4-46.3) fL RDW Coeff of Bertha (11.5-14.5) % Plt Count (130-400) K/uL MPV (7.4-10.4) fL Immature Gran % (Auto) % Neut % (Auto) % Lymph % (Auto) % [place] % (Auto) % Eos % (Auto) % Baso % (Auto) % Neut # (Auto) (1.4-6.5) K/uL Lymph # (Auto) (1.2-3.4) K/uL [place] # (Auto) (0.11-0.59) K/uL Eos # (Auto) (0-0.5) K/uL Baso # (Auto) (0-0.2) K/uL Immature Gran # (Auto) (0.00-0.02) K/uL Sodium (136-145) mmol/L Potassium (3.5-5.1) mmol/L Chloride (98-107) mmol/L Carbon Dioxide (21-32) mmol/L Anion Gap (3-11) BUN (6-23) mg/dl Creatinine (0.6-1.4) mg/dl Est Cr Clr Drug Dosing Est GFR ( Amer) ml/min Est GFR (Non-Af Amer) ml/min BUN/Creatinine Ratio (10-20) Glucose (70-99(Fasting)) mg/dl Calcium (8.5-10.1) mg/dl Total Bilirubin (0.2-1.0) mg/dl AST (13-39) U/L ALT (7-52) U/L Alkaline Phosphatase (34-104) U/L Total Protein (6.0-8.3) gm/dl Albumin (3.4-5.0) gm/dl Globulin (2.5-4.0) gm/dl Albumin/Globulin Ratio (0.9-2) Lipase (11-82) U/L Urine Color Urine Appearance (Clear) Urine pH (4.5-7.5) Ur Specific [place] (1.000-1.030) Urine Protein (Negative) Urine Glucose (UA) (Negative) Urine Ketones (Negative) Urine Blood (Negative) Urine Nitrite (Negative) Urine Bilirubin (Negative) Urine Urobilinogen (Negative) Ur Leukocyte Esterase (Negative) Urine WBC (Auto) (0-5) /hpf Urine RBC (Auto) (0-4) /hpf U Hyaline Cast (Auto) (0-5) /lpf U Epithel Cells (Auto) (0-5) /lpf Urine Bacteria (Auto) (Negative) SARS-CoV-2, RNA, NAAT NEGATIVE (NEGATIVE) Imaging Data My Impression: CT scan imaging of the abdomen pelvis was obtained today. This was reviewed by me and read by radiology. Patient has a large 13 mm stone within the right ureter at the pelvic inlet producing marked hydronephrosis and [place] ureter with swelling of the right kidney. Patient has cholelithiasis without acute cholecystitis. No other acute findings are noted. Radiologist's Impression: Abdomen/Pelvis CT 02/21/22 12:27 CT abd pelvis wo con CLINICAL HISTORY: Right flank pain, h/o kidney stones COMPARISON STUDY: No previous studies for comparison. CT DOSE: 404.55 mGy.cm TECHNIQUE: Standard CT of the Abdomen and Pelvis was performed without IV contrast. The patient did not receive oral contrast. A dose lowering technique was utilized adhering to the principles of ALARA. FINDINGS: Lung base: Centrilobular emphysematous changes and interstitial fibrotic changes are present the lung bases. The heart is enlarged. Abdominal cavity: There is no evidence for abdominal mass, adenopathy or ascites. Liver: The liver is homogeneous in attenuation on these limited noncontrast images.. Spleen: The spleen is homogeneous in attenuation on these limited noncontrast images. Pancreas: The pancreas is homogeneous in attenuation on these limited noncontrast images. Gall Bladder: The gallbladder is well distended with cholelithiasis. There is no CT evidence for acute cholecystitis. Adrenal glands: The adrenal glands are normal in size and attenuation on these limited noncontrast images. Kidneys: There is swelling of the right kidney when compared to the left with moderate to marked hydronephrosis and hydroureter present to the level of the pelvic inlet. 13 mm calculus is seen within the right ureter at this site producing the obstruction present. There is no evidence for left renal calculus or hydronephrosis. There is no gross renal mass. Bowel: There is a moderate size hiatal hernia. The bowel loops are normally placed within the abdomen and pelvis without evidence for dilatation or obstruction. There is no evidence for mass lesion. There is minimal sigmoid diverticulosis without evidence for diverticulitis. There are no inflammatory changes present. There is no evidence for free air. Bladder: There is no evidence for focal bladder wall thickening, calculus or diverticulum. : There is no evidence for pelvic mass or adenopathy. Vasculature: There is no evidence for focal aneurysmal dilatation of the abdominal aorta. Extensive atherosclerotic calcification is present. Osseous structures: There is no acute osseous pathology. Degenerative changes are seen within the spine. IMPRESSION: 1. 13 mm distal right ureteral calculus at the pelvic inlet producing moderate to marked hydronephrosis and hydroureter on the right with swelling of the right kidney. 2. Cholelithiasis with no CT evidence for acute cholecystitis. 3. Centrilobular emphysematous changes of the lung bases with interstitial fibrotic changes well. 4. No other evidence for acute intra-abdominal or pelvic abnormality on these limited noncontrast images. 5. Additional nonacute findings as delineated above. ACT 112: Negative or not required by law. Electronically signed by: Darryl Nicholas M.D. 02/21/2022 1:45 PM Blood Pressure Blood Pressure Findings: Elevated blood pressure Blood Pressure Disposition: elevated BP felt to be situational MDM Narrative Patient was evaluated in room C7. IV was established. Labs were obtained. Patient was hydrated with 1 L normal sterile saline at 125 mL/h. He was given morphine 4 mg IV and Zofran 4 mg IV with improvement of his pain. CT scan imaging of the abdomen pelvis was obtained. This was positive for a large stone. It is not passable. Patient was placed on a bow maker machine tender while in e department. He remained in fibrillation with a rate in the 90s. I did speak with Dr. Mahoney from urology. He recommended hospitalist admission with urology consult. He will evaluate the patient for intervention in the OR. Patient did eat breakfast this morning and would not be able to receive general anesthesia at this time. I did speak with Dr. Coleman from [facility] hospitalist service. She will admit the patient for pain management in anticipation of intervention in the OR. Please see her dictation for final management. Patient remained stable while in the ED. Patient was seen in conjunction with Dr. Lane, who also evaluated the patient and concurred with today's diagnosis and treatment plan. Attending Attestation: Donita Lane MD independently saw and evaluated this patient and agree with history and physical is otherwise documented by the physician electrician's assistant. See their note for full details. Patient with large 13mm stone with some im provement of pain resting in bed on evaluation. After IV meds SpO2 ~90% but denies sob. WBC is elevated and with continued pain and the large size further care here at the hospital to be pursued. Impression & Plan Right ureteral stone, Flank Pain Admission to the hospitalist service with anticipated surgical intervention by urology. Patient remained stable while in the ED. His was present for today's exam. Discharge Plan Visit Data Chief Complaint: Flank Pain Stated Complaint: RT SIDED FLANK PAIN ED Provider: Ramses Lane ED Midlevel Provider: Anthony Linares Discharge Problem: Right ureteral stone, Flank Pain Patient Disposition: Admitted As Inpatient Discharge Instructions Interventions: ED Discharge Assessment Last Done: 02/21/22 16:27
[2022-02-21 12:50] LABS: Hemoglobin 14.1 g/dL (14.0-18.0); Mean Corpuscular Hemoglobin 29.4 pg (25-34); Mean Corpuscular Hgb Conc 33.6 g/dL (32-36); Mean Corpuscular Volume 87.5 fL (80-100); Mean Platelet Volume 8.6 fL (7.4-10.4); Platelet Count 332 K/uL (130-400); RDW Standard Deviation 54.5 fL (36.4-46.3); White Blood Count 21.29 K/uL (4.8-10.8)
[2022-02-21 12:52] LABS: Appearance Urine Clear (Clear); Bacteria Urine Automated Negative (Negative); Bilirubin Urine Negative (Negative); Blood Urine 1+ (Negative); Cast Urine Automated 0 /lpf (0-5); Color Urine Yellow; Epithelial Cell Urine Auto 0-5 /lpf (0-5); Glucose Urine UA Negative (Negative); Ketones Urine Negative (Negative); Leukocyte Esterase Urine Negative (Negative); Nitrite Urine Negative (Negative); Protein Urine Negative (Negative); RBC Urine Automated 0-4 /hpf (0-4); Specific Gravity Urine 1.015 (1.000-1.030); Urobilinogen Urine Negative (Negative); pH Urine 7.5 (4.5-7.5)
[2022-02-21 13:08] LABS: Alanine Aminotransferase 42 U/L (7-52); Albumin Globulin Ratio 1.1 (0.9-2); Albumin Level 4.4 gm/dl (3.4-5.0); Alkaline Phosphatase 125 U/L (34-104); Anion Gap 7 (3-11); Aspartate Aminotransferase 27 U/L (13-39); BUN Creatinine Ratio 25.2 (10-20); Bilirubin,Total 1.7 mg/dl (0.2-1.0); Blood Urea Nitrogen 26 mg/dl (6-23); Calcium 9.6 mg/dl (8.5-10.1); Carbon Dioxide 30 mmol/L (21-32); Chloride 93 mmol/L (98-107); Est GFR (African American) 80.8 ml/min; Est GFR (Non-African American) 69.7 ml/min; Globulin 3.9 gm/dl (2.5-4.0); Glucose 137 mg/dl (70-99(Fasting)); Lipase 7 U/L (11-82); Sodium 130 mmol/L (136-145); Total Protein 8.3 gm/dl (6.0-8.3)
[2022-02-21 13:09] LABS: Basophils # (auto) 0.01 K/uL (0-0.2); Eosinophils # (auto) 0.02 K/uL (0-0.5); Eosinophils % (auto) 0.1 %; Immature Granulocytes # (auto) 0.13 K/uL (0.00-0.02); Immature Granulocytes % (auto) 0.6 %; Lymphocytes # (auto) 3.63 K/uL (1.2-3.4); Lymphocytes % (auto) 17.1 %; Monocytes # (auto) 0.86 K/uL (0.11-0.59); Neutrophils # (auto) 16.64 K/uL (1.4-6.5); Neutrophils % (auto) 78.2 %
--- NOTE | 2022-02-21 13:47 | CT Scan Report ---
CT abd pelvis wo con CLINICAL HISTORY: Right flank pain, h/o kidney stones COMPARISON STUDY: No previous studies for comparison. CT DOSE: 404.55 mGy.cm TECHNIQUE: Standard CT of the Abdomen and Pelvis was performed without IV contrast. The patient did not receive oral contrast. A dose lowering technique was utilized adhering to the principles of [place]. FINDINGS: Lung base: Centrilobular emphysematous changes and interstitial fibrotic changes are present the lung bases. The heart is enlarged. Abdominal cavity: There is no evidence for abdominal mass, adenopathy or ascites. Liver: The liver is homogeneous in attenuation on these limited noncontrast images.. Spleen: The spleen is homogeneous in attenuation on these limited noncontrast images. Pancreas: The pancreas is homogeneous in attenuation on these limited noncontrast images. Gall Bladder: The gallbladder is well distended with cholelithiasis. There is no CT evidence for acut e cholecystitis. Adrenal glands: The adrenal glands are normal in size and attenuation on these limited noncontrast im ages. Kidneys: There is swelling of the right kidney when compared to the left with moderate to marked hydr onephrosis and hydroureter present to the level of the pelvic inlet. 13 mm calculus is seen within th e right ureter at this site producing the obstruction present. There is no evidence for left renal ca lculus or hydronephrosis. There is no gross renal mass. Bowel: There is a moderate size hiatal hernia. The bowel loops are normally placed within the abdomen and pelvis without evidence for dilatation or obstruction. There is no evidence for mass lesion. The re is minimal sigmoid diverticulosis without evidence for diverticulitis. There are no inflammatory c hanges present. There is no evidence for free air. Bladder: There is no evidence for focal bladder wall thickening, calculus or diverticulum. : There is no evidence for pelvic mass or adenopathy. Vasculature: There is no evidence for focal aneurysmal dilatation of the abdominal aorta. Extensive a therosclerotic calcification is present. Osseous structures: There is no acute osseous pathology. Degenerative changes are seen within the spi ne. IMPRESSION: 1. 13 mm distal right ureteral calculus at the pelvic inlet producing moderate to marked hydronephros is and hydroureter on the right with swelling of the right kidney. 2. Cholelithiasis with no CT evidence for acute cholecystitis. 3. Centrilobular emphysematous changes of the lung bases with interstitial fibrotic changes well. 4. No other evidence for acute intra-abdominal or pelvic abnormality on these limited noncontrast inderjit ges. 5. Additional nonacute findings as delineated above. ACT 112: Negative or not required by law. Electronically signed by: Darryl Nicholas M.D. 02/21/2022 1:45 PM
--- NOTE | 2022-02-21 15:17 | History & Physical Report ---
Date of Service February 21, 2022 Assessment & Plan (1) Right ureteral stone: Plan: Leukocytosis Right hydronephrosis, hydroureter Patient presented with right flank pain, white blood cell count 22,000, creatinine at baseline UA not consistent with infection However patient has been on Augmentin for past 5 days (for bronchitis) No hematuria On CT scan, 13 mm distal right ureteral calculus at the pelvic inlet producing moderate to marked hydronephrosis and hydroureter on the right with swelling of the right kidney. Urology (Dr. Mahoney )contacted by ED provider IV fluids started, judicious monitoring of IV fluids given patient's mixed humble vular heart disease/monitor fluid status Pain control, antiemetics Plan: Chronic A. fib -On Coumadin, will check INR -Rate controlled, without any beta-jael Mixed valvular heart disease -moderate to severe aortic valve regurg, moderate mitral regurg, moderate to severe tricuspid regurg, Hx of severe pulmonary hypertension -Patient follows with [facility] cardiology -On furosemide, lisinopril -Likely restart right after procedure -IVF started in ED, will need to stay cautious, monitor fluid status closely Bronchitis, recent outpatient diagnosis -Patient finished prednisone, 5-day course -Currently on Augmentin, is supposed to be on 10-day course -DuoNebs every 4 hours as needed -Patient reports - much improved History of COPD/interstitial lung disease -At home, on albuterol as needed -While inpatient, as needed DuoNebs History of Present Illness Chief Complaint: R flank pain Primary Care Provider: Jostin Dye MD Patient is a 76-year-old male, with a history of COPD/interstitial lung, (former smoker), CKD stage II, chronic A. fib, on anticoagulation, mixed valvular heart disease -moderate to severe aortic valve regurg, moderate mitral regurg, moderate to severe tricuspid regurg, with severe pulmonary hypertension. Recently, on February 16, he was seen by his PCP, due to getting short of breath. He was diagnosed with bronchitis, and prescribed Augmentin and prednisone. He finished 5 days of prednisone yesterday. He took Augmentin this morning, and is supposed to continue for 10 days. He says he is doing much better from bronchitis standpoint. He was quite short of breath and coughing, had yellow sputum. Now he hardly coughs at all, and has clear sputum. He presents in ED today, due to right flank pain. The pain started yesterday morning, and patient was hopeful that it would subside on its own. However pain only got worse and therefore he presented in emergency room. Pain is mostly in right flank, with some occasional radiation to his right groin. Denies any hematuria. Reports some urinary frequency. Denies any fevers or chills. No significant abdominal pain, nausea or vomiting. However he does report some dry heaves. 13 mm right ureteral stone present on CT evaluation. White blood cell count was elevated at 22,000. UA negative. However as mentioned above, patient has been on antibiotic since February 16. Denies any palpitations or chest pain. Has mild lower extremity edema, says that is chronic and has not changed. No dizziness or lightheadedness. Urology, Dr. Mahoney was contacted by ED provider. Patient was started on IV fluids, and received IV morphine. Allergies Allergy/AdvReac Type Severity Reaction Status Date / Time petrolatum,white Allergy Unknown Redness of Verified 02/21/22 15:24 [From Vaseline] Skin prednisone Allergy Unknown SWELLING,SICK Verified 02/21/22 15:25 TO STOMACH atenolol AdvReac Unknown Hypertensio Verified 02/21/22 15:24 n strawberry AdvReac Unknown Unknown Verified 02/21/22 15:24 chocolate AdvReac Unknown Uncoded 02/21/22 15:24 Home Medications Medication Instructions Recorded Confirmed Type amlodipine 5 mg tablet 5 mg PO QAM 06/14/18 02/21/22 History aspirin 81 mg tablet,delayed 81 mg PO QAM 06/14/18 02/21/22 History release (Mendel Low Dose Aspirin) furosemide 40 mg tablet 40 mg PO QAM 06/14/18 02/21/22 History lisinopril 40 mg tablet 40 mg PO QAM 06/14/18 02/21/22 History glucosamine sulfate 1,000 mg 1,000 mg PO DAILY 06/22/18 02/21/22 History capsule nnboowir-fxc-oavuo acid 300 1 tab PO DAILY 06/22/18 02/21/22 History mcg-lycopene 600 mcg-lutein 300 mcg tablet (Centrum Silver Men) tretinoin 0.025 % topical cream 1 applic TOPICAL HS 06/22/18 02/21/22 History triamcinolone acetonide 0.1 % 1 applic TOPICAL BID PRN 06/22/18 02/21/22 History topical cream albuterol sulfate 90 mcg/actuation 2 puff INHALATION Q4 PRN 02/21/22 02/21/22 History aerosol inhaler amoxicillin 875 mg-potassium 1 tab PO AMHS 02/21/22 02/21/22 History clavulanate 125 mg tablet omeprazole 20 mg capsule,delayed 20 mg PO DAILY 02/21/22 02/21/22 History release warfarin 5 mg tablet See Rx Instructions .ROUTE .COMPLEX 02/21/22 02/21/22 History Past Med/Surg History Medical History (Updated 02/21/22 @ 16:23 by Domo Coleman MD) Atrial fibrillation CHRONIC/PERSISTENT S/P CARDIOVERSION (07/2016) Hypertension Kidney stones Osteoarthritis Pulmonary HTN SEVERE (PASP 68MMHG) Retained metal fragment IN EYE (NO MRI) Valvular disease MODERATE TO SEVERE AR, POSSIBLE SEVERE MR (NOT PRECISE), SEVERE TR PER 06/06/18 ECHO Surgical History History of cataract surgery BILATERAL History of repair of rotator cuff AND BICEP REPAIR (RIGHT) Family History Father Family history of diabetes mellitus Social History Smoking Status: Current some day smoker Tobacco Type: Cigars Second Hand Exposure: No; Do You Dip or Chew Tobacco: No; Hx Alcohol Use: No Hx Substance Use: No Preferred Language: Burkin[place] Communication Ability: Effective Screed Operator Required: No Beliefs That Will Affect Care: None Current Living Situation: Spouse Other Information That Helps Us Care for You: No Feels Safe at Home: Yes Safety Concerns: Feels Safe At This Time Assistive Devices: Denture - Upper, Denture - Lower and Glasses Review of Systems Review of Systems: All systems reviewed & are unremarkable except as noted in Subjective Physical Exam Constitutional: WD/WN, vitals as above Eyes: PERRL, conjunctivae normal, anicteric sclerae ENMT: external ear and nose normal, oropharynx normal Neck: trachea midline, no thyromegaly Respiratory: normal respiratory effort, lungs clear to auscultation Cardiovascular: Rate/Rhythm: + irregularly irregular Heart Sounds: + murmur (syst.) Chest (Breasts): Chest: normal inspection of chest Gastrointestinal (Abdomen): normal bowel sounds, soft, nontender, no hepatosplenomegaly Musculoskeletal: no cyanosis or clubbing, extremities motor strength 5/5 Skin: no rashes, warm and dry Neurologic: PERRL, EOMI, accommodation nl, no face palsy, no dysarthria (moves extremities) Genitourinary: + CVA tenderness (R) Lymphatic: + lymphadenopathy (1+ LE edema b/l) Results & Data Results & Data ([facility]) Vital Signs (Past 12 Hours) Vital Signs Temp Pulse Pulse Resp BP BP Pulse Ox 02/21/22 15:00 89 20 90 02/21/22 13:32 85 18 162/84 H 92 02/21/22 12:46 93 H 16 156/84 H 94 02/21/22 12:28 94 02/21/22 12:05 36.4 C L 92 H 18 172/93 H 96 02/21/22 12:02 20 Laboratory Results 02/21/22 02/21/22 02/21/22 Range/Units 12:40 12:40 12:40 WBC 21.29 H (4.8-10.8) K/uL RBC 4.80 (4.7-6.1) M/uL Hgb 14.1 (14.0-18.0) g/dL Hct 42.0 (42-52) % MCV 87.5 (80-100) fL MCH 29.4 (25-34) pg MCHC 33.6 (32-36) g/dL RDW Std Deviation 54.5 H (36.4-46.3) fL RDW Coeff of Bertha 17.0 H (11.5-14.5) % Plt Count 332 (130-400) K/uL MPV 8.6 (7.4-10.4) fL Immature Gran % (Auto) 0.6 % Neut % (Auto) 78.2 % Lymph % (Auto) 17.1 % Russell % (Auto) 4.0 % Eos % (Auto) 0.1 % Baso % (Auto) 0.0 % Neut # (Auto) 16.64 H (1.4-6.5) K/uL Lymph # (Auto) 3.63 H (1.2-3.4) K/uL Russell # (Auto) 0.86 H (0.11-0.59) K/uL Eos # (Auto) 0.02 (0-0.5) K/uL Baso # (Auto) 0.01 (0-0.2) K/uL Immature Gran # (Auto) 0.13 H (0.00-0.02) K/uL Sodium 130 L (136-145) mmol/L Potassium 4.0 (3.5-5.1) mmol/L Chloride 93 L (98-107) mmol/L Carbon Dioxide 30 (21-32) mmol/L Anion Gap 7 (3-11) BUN 26 H (6-23) mg/dl Creatinine 1.03 (0.6-1.4) mg/dl Est Cr Clr Drug Dosing Not Reportable Est GFR ( Amer) 80.8 ml/min Est GFR (Non-Af Amer) 69.7 ml/min BUN/Creatinine Ratio 25.2 H (10-20) Glucose 137 H (70-99(Fasting)) mg/dl Calcium 9.6 (8.5-10.1) mg/dl Total Bilirubin 1.7 H (0.2-1.0) mg/dl AST 27 (13-39) U/L ALT 42 (7-52) U/L Alkaline Phosphatase 125 H (34-104) U/L Total Protein 8.3 (6.0-8.3) gm/dl Albumin 4.4 (3.4-5.0) gm/dl Globulin 3.9 (2.5-4.0) gm/dl Albumin/Globulin Ratio 1.1 (0.9-2) Lipase 7 L (11-82) U/L Urine Color Yellow Urine Appearance Clear (Clear) Urine pH 7.5 (4.5-7.5) Ur Specific [place] 1.015 (1.000-1.030) Urine Protein Negative (Negative) Urine Glucose (UA) Negative (Negative) Urine Ketones Negative (Negative) Urine Blood 1+ H (Negative) Urine Nitrite Negative (Negative) Urine Bilirubin Negative (Negative) Urine Urobilinogen Negative (Negative) Ur Leukocyte Esterase Negative (Negative) Urine WBC (Auto) 1-5 (0-5) /hpf Urine RBC (Auto) 0-4 (0-4) /hpf U Hyaline Cast (Auto) 0 (0-5) /lpf U Epithel Cells (Auto) 0-5 (0-5) /lpf Urine Bacteria (Auto) Negative (Negative) Diagnostic Findings CT abdomen pelvis IMPRESSION: 1. 13 mm distal right ureteral calculus at the pelvic inlet producing moderate to marked hydronephrosis and hydroureter on the right with swelling of the right kidney. 2. Cholelithiasis with no CT evidence for acute cholecystitis. 3. Centrilobular emphysematous changes of the lung bases with interstitial fibrotic changes well. 4. No other evidence for acute intra-abdominal or pelvic abnormality on these limited noncontrast images. 5. Additional nonacute findings as delineated above.
[2022-02-21] MEDS: SODIUM CHLORIDE 0.9% 1000ML 1,000 ML IV SCH (15:24)
[2022-02-21] MEDS ORDERED: ACETAMINOPHEN 325 MG TAB PO PRN (15:45)
[2022-02-21] MEDS ORDERED: POLYETHYLENE (MIRALAX) 17 GM PACK PO PRN (15:45)
[2022-02-21] MEDS ORDERED: XOPENEX/ATROVENT 1.25mg/0.5MG NEB COMBO NEB PRN (16:35)
[2022-02-21] MEDS ORDERED: LEVALBUTEROL 1.25MG/0.5ML NEB INH PRN (16:45)
[2022-02-21] MEDS ORDERED: IPRATROPIUM BROMIDE NEB SOLN 0.02% 2.5 ML VIAL INH PRN (16:45)
[2022-02-21] MEDS: MoRPHine SULFATE 4 MG/ML 1 ML CARP\\VIAL IV PRN ×2 (16:53→19:51)
[2022-02-21] MEDS ORDERED: TRIAMCINOLONE ACET 0.1% CR 15 GM TUBE TOP PRN (17:17)
[2022-02-21] MEDS ORDERED: ALBUTEROL HFA 8 GM INHALER INH PRN (17:17)
[2022-02-21 18:02] LABS: INR 5.5 (0.9-1.1); Prothrombin Time 53.8 Seconds (9.0-12.0)
--- NOTE | 2022-02-21 19:11 | Urology Consultation ---
Date of Consultation February 21, 2022 Assessment & Plan (1) Right ureteral stone: Patient has very large and obstructing 1.3 cm mid ureteral stone near the pelvic brim. Causes severe hydronephrosis and hydroureter to the point of stone. Patient has considerable pain at times. Had become unbearable. Patient had been on antibiotics for an upper respiratory infection. Has been placed on broad-spectrum antibiotics. Is undergoing supportive care. Discussed options for conservative measure and maximum expulsion medical therapy and symptom controlled. Discussed ESWL. Discussed Ureteroscopy with extraction and/or laser lithotripsy. Risks and benefits were discussed. Stone free rates were also discussed as well as possibility of multiple procedures. Ureteral stents were discussed as well as post-operative issues and pain management. All questions were answered. Due to the stones very large size and considerable obstructive issues would be concerning for possible infection behind the stone especially with the large degree of hydroureter. Did discuss possibility of inability to access stone due to its large size and considerable obstruction. Discussed options such as stent placement for decompression of system. Discussed risk and benefits. Patient is NPO. He has had a negative COVID test. Risks and benefits discussed at length for procedure. These include bleeding, infection, injury to surrounding tissues or organs, and risks associated with anesthesia. Patient states understanding and agrees to proceed. Will sign consent and proceed with cystoscopy and right stent placement. History of Present Illness Attending Physician: Domo Coleman MD History of Present Illness New consultation for patient with stone, discomfort, obstruction, and ill feelings. Patient developed sudden onset of pain into flank going down and radiating into groin and back in waves comes and goes. Can be severe at times. Patient has numerous comorbidities. Has considerable heart issues with valvular disease and A. fib. Patient is on Coumadin. Patient had presented with severe pain in flank going to groin in waves. Had started yesterday but continued to get worse. Was also dealing with a recent long issue with significant upper respiratory issues. Patient had been placed on Augmentin. Patient has a 22,000 white count and has been dealing with hypertension and tachycardia throughout the day. Discussed and reviewed patient's family history for any history of stone disease. Also, discussed patient's medical surgery history especially related to any history of urinary issues or stone disease. Has history of small stones which passed approx 20 years ago. Never needed intervention. Patient was admitted and is undergoing observation. Allergies Allergy/AdvReac Type Severity Reaction Status Date / Time petrolatum,white Allergy Unknown Redness of Verified 02/21/22 15:24 [From Vaseline] Skin prednisone Allergy Unknown SWELLING,SICK Verified 02/21/22 15:25 TO STOMACH atenolol AdvReac Unknown Hypertensio Verified 02/21/22 15:24 n strawberry AdvReac Unknown Unknown Verified 02/21/22 15:24 chocolate AdvReac Unknown Uncoded 02/21/22 15:24 Home Medications Medication Instructions Recorded Confirmed Type amlodipine 5 mg tablet 5 mg PO QAM 06/14/18 02/21/22 History aspirin 81 mg tablet,delayed 81 mg PO QAM 06/14/18 02/21/22 History release (Mendel Low Dose Aspirin) furosemide 40 mg tablet 40 mg PO QAM 06/14/18 02/21/22 History lisinopril 40 mg tablet 40 mg PO QAM 06/14/18 02/21/22 History glucosamine sulfate 1,000 mg 1,000 mg PO DAILY 06/22/18 02/21/22 History capsule wpepbggs-zyk-juyvf acid 300 1 tab PO DAILY 06/22/18 02/21/22 History mcg-lycopene 600 mcg-lutein 300 mcg tablet (Centrum Silver Men) tretinoin 0.025 % topical cream 1 applic TOPICAL HS 06/22/18 02/21/22 History triamcinolone acetonide 0.1 % 1 applic TOPICAL BID PRN 06/22/18 02/21/22 History topical cream albuterol sulfate 90 mcg/actuation 2 puff INHALATION Q4 PRN 02/21/22 02/21/22 History aerosol inhaler amoxicillin 875 mg-potassium 1 tab PO AMHS 02/21/22 02/21/22 History clavulanate 125 mg tablet omeprazole 20 mg capsule,delayed 20 mg PO DAILY 02/21/22 02/21/22 History release warfarin 5 mg tablet See Rx Instructions .ROUTE .COMPLEX 02/21/22 02/21/22 History Patient History Medical History (Updated 02/21/22 @ 21:06 by Ulises Montano MD) Atrial fibrillation CHRONIC/PERSISTENT S/P CARDIOVERSION (07/2016) Congestive heart failure EF 40% in 2018 Hypertension Hyponatremia Kidney stones Lung disease emphysema and fibrotic changes on chest CT Osteoarthritis Pulmonary HTN SEVERE (PASP 68MMHG) Retained metal fragment IN EYE (NO MRI) Smoker Valvular disease MODERATE TO SEVERE AR, POSSIBLE SEVERE MR (NOT PRECISE), SEVERE TR PER 06/06/18 ECHO Surgical History History of cataract surgery BILATERAL History of repair of rotator cuff AND BICEP REPAIR (RIGHT) Family History Father Family history of diabetes mellitus Social History Smoking Status: Current some day smoker Tobacco Type: Cigars Second Hand Exposure: No; Do You Dip or Chew Tobacco: No; Hx Alcohol Use: No Hx Substance Use: No Preferred Language: [place] Communication Ability: Effective Truck Mechanic Required: No Beliefs That Will Affect Care: None Current Living Situation: Spouse Other Information That Helps Us Care for You: No Feels Safe at Home: Yes Safety Concerns: Feels Safe At This Time Assistive Devices: Denture - Upper, Denture - Lower and Glasses Review of Systems Review of Systems: All systems reviewed & are unremarkable except as noted in HPI & below Physical Exam Physical Exam: General: Alert and oriented x 3 in no acute distress. Patient is well nourished and well kept. HEENT: Normocephalic Atraumatic. Inspection normal. Cranial Nerves 2-12 Grossly intact. Nares are clear. Neck is supple. Normal inspection of face. Normal inspection of neck. Neurologic: No deficits on inspection. Baseline for motor function and sensory. Psychologic: Normal affect. Respiratory: Nonlabored. No use of accessory muscles. No tachypnea or dyspnea. Cardiovascular: No tachycardia Skin: [place] and Dry. No rashes or visible lesions. Extremities: Moving without issues. No motor deficits on inspection Lymphatics: No edema Abdomen: Soft Non-distended. No acites. No rebound or guarding. Results & Data ([facility]) Vital Signs (Past 12 Hours) Vital Signs Temp Pulse Pulse Resp BP BP Pulse Ox 02/21/22 19:05 36.7 C 89 18 153/74 H 94 02/21/22 17:36 91 H 02/21/22 16:39 36.4 C L 90 18 163/82 H 97 02/21/22 16:29 89 L 02/21/22 16:27 36.6 C 96 H 18 172/93 H 97 02/21/22 15:00 89 20 90 02/21/22 13:32 85 18 162/84 H 92 02/21/22 12:46 93 H 16 156/84 H 94 02/21/22 12:28 94 02/21/22 12:05 36.4 C L 92 H 18 172/93 H 96 02/21/22 12:02 20 PG Care Time/CCT Total # of Minutes Spent Total Time Spent with Patient: Total time spent is greater than 50% in coordination of care (as documented) at patient's floor/unit and/or counseling patient: Coding Level of Care Code 39200 Inpt Consult Level 5 Diagnoses Right ureteral stone N20.1
--- NOTE | 2022-02-21 21:01 | Anesthesiology Consultation ---
Date of Service February 21, 2022 Assessment & Plan (1) Encounter for pre-operative examination: Chart Review Chart Review: Acceptable Risk for Surgery (necessary surgery) and Patient NOT seen in Pre Admission Testing Consults Requested none History Surgery Operation Date: 02/21/22 21:00 Proposed Procedures p Cystoscopy(Right) - Gilbert Mahoney DO s Ureteral Stent Insertion/Removal(Right) - Gilbert Mahoney DO Height/Weight Height: 5 ft 10 in Weight: 84.8 kg Allergies Allergy/AdvReac Type Severity Reaction Status Date / Time petrolatum,white Allergy Unknown Redness of Verified 02/21/22 15:24 [From Vaseline] Skin prednisone Allergy Unknown SWELLING,SICK Verified 02/21/22 15:25 TO STOMACH atenolol AdvReac Unknown Hypertensio Verified 02/21/22 15:24 n strawberry AdvReac Unknown Unknown Verified 02/21/22 15:24 chocolate AdvReac Unknown Uncoded 02/21/22 15:24 Medications Home Medications Medication Instructions Recorded Confirmed Last Taken amlodipine 5 mg tablet 5 mg PO QAM 06/14/18 02/21/22 Unknown aspirin 81 mg tablet,delayed 81 mg PO QAM 06/14/18 02/21/22 Unknown release (Mendel Low Dose Aspirin) furosemide 40 mg tablet 40 mg PO QAM 06/14/18 02/21/22 Unknown lisinopril 40 mg tablet 40 mg PO QAM 06/14/18 02/21/22 Unknown glucosamine sulfate 1,000 mg 1,000 mg PO DAILY 06/22/18 02/21/22 Unknown capsule icuidvuh-xdc-mfhae acid 300 1 tab PO DAILY 06/22/18 02/21/22 Unknown mcg-lycopene 600 mcg-lutein 300 [facility]cg [facility] tretinoin 0.025 % topical cream 1 applic TOPICAL HS 06/22/18 02/21/22 Unknown triamcinolone acetonide 0.1 % 1 applic TOPICAL BID PRN 06/22/18 02/21/22 Unknown topical cream albuterol sulfate 90 mcg/actuation 2 puff INHALATION Q4 PRN 02/21/22 02/21/22 Unknown aerosol inhaler amoxicillin 875 mg-potassium 1 tab PO AMHS 02/21/22 02/21/22 Unknown clavulanate 125 mg tablet omeprazole 20 mg capsule,delayed 20 mg PO DAILY 02/21/22 02/21/22 Unknown release warfarin 5 mg tablet See Rx Instructions .ROUTE .COMPLEX 02/21/22 02/21/22 Unknown Active Medications Generic Name Dose Route Start Last Admin Trade Name Malachi PRN Reason Stop Dose Admin Sodium Chloride 1,000 mls @ 80 mls/hr 02/21/22 15:00 02/21/22 17:15 Nss 1000ml IV 03/23/22 14:59 80 mls/hr .[id number] CARMELINA Infusion Morphine Sulfate 3 mg 02/21/22 16:33 02/21/22 19:51 Morphine Sulfate 4 Mg/Ml 1 Ml Carp\Vial IV 03/07/22 16:32 3 mg Q3H PRN Administration Pain Past Medical History Medical History (Updated 02/21/22 @ 21:06 by Ulises Montano MD) Atrial fibrillation CHRONIC/PERSISTENT S/P CARDIOVERSION (07/2016) Congestive heart failure EF 40% in 2018 Hypertension Hyponatremia Kidney stones Lung disease emphysema and fibrotic changes on chest CT Osteoarthritis Pulmonary HTN SEVERE (PASP 68MMHG) Retained metal fragment IN EYE (NO MRI) Smoker Valvular disease MODERATE TO SEVERE AR, POSSIBLE SEVERE MR (NOT PRECISE), SEVERE TR PER 06/06/18 ECHO Past Family History Family History Father Family history of diabetes mellitus Past Surgical History Surgical History History of cataract surgery BILATERAL History of repair of rotator cuff AND BICEP REPAIR (RIGHT) Social History Smoking Status: Current some day smoker tobacco type: cigars Do You Dip or Chew Tobacco: No Hx Alcohol Use: No Hx Substance Use: No substance use type: does not use Physical Exam Vital Signs Last Vital Signs Temp 36.7 C 02/21/22 19:05 Pulse 89 02/21/22 19:05 Resp 18 02/21/22 19:05 BP 153/74 H 02/21/22 19:05 Pulse Ox 94 02/21/22 19:05 Testing Laboratory Results 02/21/22 12:40 02/21/22 12:40 PT 53.8 Seconds (9.0-12.0) H 02/21/22 17:10 INR 5.5 (0.9-1.1) H 02/21/22 17:10 Urine Color Yellow 02/21/22 12:40 Urine Appearance Clear (Clear) 02/21/22 12:40 Urine pH 7.5 (4.5-7.5) 02/21/22 12:40 Ur Specific [place] 1.015 (1.000-1.030) 02/21/22 12:40 Urine Protein Negative (Negative) 02/21/22 12:40 Urine Glucose (UA) Negative (Negative) 02/21/22 12:40 Urine Ketones Negative (Negative) 02/21/22 12:40 Urine Nitrite Negative (Negative) 02/21/22 12:40 Ur Leukocyte Esterase Negative (Negative) 02/21/22 12:40 Urine WBC (Auto) 1-5 /hpf (0-5) 02/21/22 12:40 Urine RBC (Auto) 0-4 /hpf (0-4) 02/21/22 12:40 U Hyaline Cast (Auto) 0 /lpf (0-5) 02/21/22 12:40 U Epithel Cells (Auto) 0-5 /lpf (0-5) 02/21/22 12:40 Urine Bacteria (Auto) Negative (Negative) 02/21/22 12:40 Echocardiogram Date: 06/22/18 EF: 40 LV Function: dysfunctional RWMA: + hypokinetic (global) Valvular Disease: + AI (moderate) and + MR (severe) severe TR, pulmonary hypertension
[2022-02-21] MEDS ORDERED: LABETALOL HCL IV 5 MG/ML 20ML IV PRN (21:08)
[2022-02-21] MEDS ORDERED: ATROPINE SULFATE 0.1 MG/ML 10ML SYR IV PRN (21:08)
[2022-02-21] MEDS ORDERED: ONDANSETRON INJ 2 MG/ML 2 ML VIAL IV PRN (21:08)
[2022-02-21] MEDS ORDERED: PHENYLEPHRINE 100MCG/ML 5ML SYR IV PRN (21:08)
[2022-02-21] MEDS ORDERED: HYDROmorphone INJ 1 MG/ML SYRINGE IV PRN (21:08)
[2022-02-21] MEDS ORDERED: ePHEDrine sulfate 50 MG/ML AMP IV PRN (21:08)
[2022-02-21] MEDS ORDERED: fentaNYL citrate 100 MCG/2 ML VIAL IV PRN (21:08)
[2022-02-21] MEDS ORDERED: fentaNYL citrate 100 MCG/2 ML VIAL ONE (21:15)
[2022-02-21] MEDS ORDERED: PROPOFOL IV EMULSION 10 MG/ML 20 ML VIAL IV ONE (21:25)
[2022-02-21] MEDS ORDERED: ceFAZolin 330 MG/ML 1 GM VIAL ONE (21:25)
[2022-02-21] MEDS ORDERED: LIDOCAINE 2% 2 ML VIAL/AMP(20MG/ML) INFIL ONE (21:25)
[2022-02-21] MEDS ORDERED: ceFAZolin 2000MG 2,000 MG/15 ML SYR IV ONE (21:52)
[2022-02-21] MEDS ORDERED: DIATRIZOATE MEGLUMINE 30% 100ML VIAL INSTIL ONE (21:54)
--- NOTE | 2022-02-21 21:54 | Operative Report ---
PG Post Operative Report Pre & Post Diagnosis Operation Date: 02/21/22 21:00 Pre-Op Diagnosis: Right ureteral stone Post-Op Diagnosis: Right ureteral stone I identified the patient and participated in the time-out.: Yes Procedure Operation Date: 02/21/22 21:00 Actual Procedures p Cystoscopy with Right Ureteroscopy, Retrograde Pyelogram, and Right Ureteral Stent Insertion(Right) - Gilbert Mahoney DO Surgeon Gilbert Mahoney, II, DO [employer] None Estimated Blood Loss 1 Findings Consistent with Post-Op Diagnosis Extremely large and impacted stone on right mid ureter. Ureteroscopy to bypass impaction and place wire. Specimens Urine right renal pelvis. Drains 4.8 Fr Right Multilength Anesthesia Type General Complications none Disposition Disposition: Recovery Room Indications Patient with bothersome stones and illness. Risks and benefits discussed at length. Description of Procedure Patient was consented and brought back to the operating room. Patient was placed under anesthesia in the supine position and moved to the dorsal lithotomy position. Patient was prepped and draped in the regular sterile fashion. A time out was completed. A 30degree Cystoscope was placed into the bladder and the entire bladder was examined. The UO's were identified. The UO was cannulized with a catheter and a wire advanced. The stone was visable on KUB and the wire would not bypass the area. A retrograde pyelogram was completed. The stone was completely obstructing the area. A wire was then placed against the stone. The Rigid ureteroscope was taken into the ureter. The stone was identified. The wire was then directed past the stone. It was able to be advanced. A large amount of dark cloudy urine began to drain. A 5 Fr open ended catheter was placed over the wire and urine was aspirated from the renal pelvis. A retrograde pyelogram was completed to identify the renal pelvis. The wire was replaced. The scope was slowly removed with the wire left in place. Contrast was placed through the scope for a pyelogram to assist in stent placement. The entire ureter was examined as the scope was slowly removed. With the wire in place, a 6 Fr Double J stent was attempted but would not pass the stone. A 4.8 Fr stent was able to be placed. It was confirmed with fluoroscopy. With the stent in place, the bladder was emptied. The scope was removed. The patient was cleaned, aroused from anesthesia, and transferred to the pacu in stable condition having tolerated the procedure well with no complications. I was present and participated in all aspects of the procedure. The patient will be monitored in the PACU until transferred. Plan to maintain stent for 1-2 weeks for antibiotic therapy. Await culture from kidney. WIll plan treatment after complete. I attest to the content of the Intraoperative Record and any orders documented therein. Any exceptions are noted below.
--- NOTE | 2022-02-21 22:03 | Anesthesiology Progress Note ---
Date of Service February 21, 2022 Anesthesia Post Procedure Vital Signs Vital Signs: Temp Pulse Pulse Resp BP BP Pulse Ox 02/21/22 19:05 36.7 C 89 18 153/74 H 94 02/21/22 17:36 91 H 02/21/22 16:39 36.4 C L 90 18 163/82 H 97 02/21/22 16:29 89 L 02/21/22 16:27 36.6 C 96 H 18 172/93 H 97 02/21/22 15:00 89 20 90 02/21/22 13:32 85 18 162/84 H 92 02/21/22 12:46 93 H 16 156/84 H 94 02/21/22 12:28 94 02/21/22 12:05 36.4 C L 92 H 18 172/93 H 96 02/21/22 12:02 20 Pain Intensity Right Flank: Pain Intensity: 1 Transfer of Care Handoff Completed per policy Notes Mental Status: alert / awake / arousable Patient Amnestic to Procedure: Yes Nausea / Vomiting: adequately controlled Pain: adequately controlled Airway Patency, RR, SpO2: stable & adequate BP & HR: stable & adequate Hydration State: stable & adequate Anesthetic Complications: no major complications apparent and Pt Satisfied with anesthetic care Notes: The patient is awake and comfortable. His vital signs are stable in PACU.
[2022-02-22] MEDS: MoRPHine SULFATE 4 MG/ML 1 ML CARP\\VIAL IV PRN (04:56)
[2022-02-22 07:39] LABS: Hematocrit (blood only) 37.9 % (42-52); Hemoglobin 12.7 g/dL (14.0-18.0); Mean Corpuscular Hemoglobin 29.7 pg (25-34); Mean Corpuscular Hgb Conc 33.5 g/dL (32-36); Mean Corpuscular Volume 88.8 fL (80-100); Mean Platelet Volume 8.8 fL (7.4-10.4); Platelet Count 266 K/uL (130-400); RDW Coefficient of Variation 17.1 % (11.5-14.5); RDW Standard Deviation 55.6 fL (36.4-46.3); Red Blood Count 4.27 M/uL (4.7-6.1); White Blood Count 15.12 K/uL (4.8-10.8)
--- NOTE | 2022-02-22 07:41 | Hospitalist Progress Note ---
Date of Service February 22, 2022 Assessment & Plan (1) Right ureteral stone: Plan: Leukocytosis Right hydronephrosis, hydroureter Patient presented with right flank pain, white blood cell count 22,000, creatinine at baseline UA not consistent with infection However patient has been on Augmentin for past 5 days (for bronchitis) No hematuria On CT scan, 13 mm distal right ureteral calculus at the pelvic inlet producing moderate to marked hydronephrosis and hydroureter on the right with swelling of the right kidney. Urology (Dr. Mahoney )contacted by ED provider IV fluids started, judicious monitoring of IV fluids given patient's mixed humble vular heart disease/monitor fluid status Pain control, antiemetics Patient underwent right ureteral stent placement (02/21/22), tolerated procedure well white blood cell count down to 15,000 Clinically patient doing much better, pain much improved Some hematuria, also INR supratherapeutic at above 5 Received Ancef preoperatively IV ceftriaxone Plan: Chronic A. fib -On Coumadin, INR above 5, hold Coumadin -Received p.o. 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, moderate mitral regurg, moderate to severe tricuspid regurg, Hx of severe pulmonary hypertension -Patient follows with [facility] [address] cardiology -On furosemide, lisinopril -restarted home meds Bronchitis, recent outpatient diagnosis -Patient finished prednisone, 5-day course -Currently on Augmentin, is supposed to be on 10-day course -DuoNebs every 4 hours as needed -Patient reports - much improved History of COPD/interstitial lung disease -At home, on albuterol as needed -While inpatient, as needed DuoNebs Admission and Anticipated Discharge Date Admission Date: February 21, 2022 Subjective Patient seen in follow-up of renal stone, ureteral stent placed yesterday Patient tolerated procedure well INR supratherapeutic, hold Coumadin Patient has some hematuria, however feels much better than yesterday Denies fevers, chills, chest pain, shortness of breath He has some cough, reports recovering from bronchitis No abdominal pain, nausea vomiting Son updated at the bedside Review of Systems Review of Systems: All systems reviewed & are unremarkable except as noted in Subjective Physical Exam Physical Exam: Constitutional:J WD/WN, elderly mal e, in no acute dis tress on 2 L of NC Eyes: PERRL, EOMI, conju nctivae normal, an icteric sclerae ENMT: external ear and n ose normal, oropha rynx normal Neck: Supple Respiratory: normal respiratory effort, lungs juan ar to auscultation Cardiovascular:J Rate/Rhythm: + irr egularly irregular Heart Sounds: + murmur (syst.) Chest (Breasts): Chest: normal insp ection of chest Gastrointestinal ( Abdomen): normal bowel sound s, soft, nontender Musculoskeletal: extremities motor strength 5/5 Skin: no rashes, warm an d dry Neurologic: PERRL, EOMI, no fa ce palsy, no dysar thria, moves extre mities Genitourinary: + CVA tenderness (R)- improved Lymphatic: + lymphadenopathy (1+ LE edema b/l) Results & Data Results & Data ([facility]) Vital Signs (Past 12 Hours) Vital Signs Temp Pulse Pulse Pulse Resp BP Pulse Ox 02/21/22 23:54 37.0 C 102 H 18 148/79 H 97 02/21/22 23:26 112 H 02/21/22 22:45 36.8 C 94 H 14 134/73 94 02/21/22 22:30 36.9 C 105 H 14 147/81 H 94 02/21/22 22:10 99 H 16 140/81 100 02/21/22 22:00 37.0 C 95 H 16 135/75 96 Laboratory Results 02/22/22 02/22/22 02/22/22 Range/Units 08:08 07:12 07:12 WBC 15.12 H (4.8-10.8) K/uL RBC 4.27 L (4.7-6.1) M/uL Hgb 12.7 L (14.0-18.0) g/dL Hct 37.9 L (42-52) % MCV 88.8 (80-100) fL MCH 29.7 (25-34) pg MCHC 33.5 (32-36) g/dL RDW Std Deviation 55.6 H (36.4-46.3) fL RDW Coeff of Bertha 17.1 H (11.5-14.5) % Plt Count 266 (130-400) K/uL MPV 8.8 (7.4-10.4) fL Immature Gran % (Auto) % Neut % (Auto) % Lymph % (Auto) % Blaine % (Auto) % Eos % (Auto) % Baso % (Auto) % Neut # (Auto) (1.4-6.5) K/uL Lymph # (Auto) (1.2-3.4) K/uL Blaine # (Auto) (0.11-0.59) K/uL Eos # (Auto) (0-0.5) K/uL Baso # (Auto) (0-0.2) K/uL Immature Gran # (Auto) (0.00-0.02) K/uL PT 54.1 H (9.0-12.0) Seconds INR 5.6 H* (0.9-1.1) Sodium 134 L (136-145) mmol/L Potassium 3.9 (3.5-5.1) mmol/L Chloride 100 (98-107) mmol/L Carbon Dioxide 29 (21-32) mmol/L Anion Gap 5 (3-11) BUN 21 (6-23) mg/dl Creatinine 0.92 (0.6-1.4) mg/dl Est Cr Clr Drug Dosing 69.4 Est GFR ( Amer) 92.7 ml/min Est GFR (Non-Af Amer) 79.9 ml/min BUN/Creatinine Ratio 22.8 H (10-20) Glucose 83 (70-99(Fasting)) mg/dl Calcium 8.2 L (8.5-10.1) mg/dl Phosphorus 3.8 (2.5-4.9) mg/dl Magnesium 1.8 (1.7-2.4) mg/dl Total Bilirubin (0.2-1.0) mg/dl AST (13-39) U/L ALT (7-52) U/L Alkaline Phosphatase (34-104) U/L Total Protein (6.0-8.3) gm/dl Albumin (3.4-5.0) gm/dl Globulin (2.5-4.0) gm/dl Albumin/Globulin Ratio (0.9-2) Lipase (11-82) U/L Urine Color Urine Appearance (Clear) Urine pH (4.5-7.5) Ur Specific [place] (1.000-1.030) Urine Protein (Negative) Urine Glucose (UA) (Negative) Urine Ketones (Negative) Urine Blood (Negative) Urine Nitrite (Negative) Urine Bilirubin (Negative) Urine Urobilinogen (Negative) Ur Leukocyte Esterase (Negative) Urine WBC (Auto) (0-5) /hpf Urine RBC (Auto) (0-4) /hpf U Hyaline Cast (Auto) (0-5) /lpf U Epithel Cells (Auto) (0-5) /lpf Urine Bacteria (Auto) (Negative) SARS-CoV-2, RNA, NAAT (NEGATIVE) 02/21/22 02/21/22 02/21/22 Range/Units 17:10 15:16 12:40 WBC (4.8-10.8) K/uL RBC (4.7-6.1) M/uL Hgb (14.0-18.0) g/dL Hct (42-52) % MCV (80-100) fL MCH (25-34) pg MCHC (32-36) g/dL RDW Std Deviation (36.4-46.3) fL RDW Coeff of Bertha (11.5-14.5) % Plt Count (130-400) K/uL MPV (7.4-10.4) fL Immature Gran % (Auto) % Neut % (Auto) % Lymph % (Auto) % Blaine % (Auto) % Eos % (Auto) % Baso % (Auto) % Neut # (Auto) (1.4-6.5) K/uL Lymph # (Auto) (1.2-3.4) K/uL Blaine # (Auto) (0.11-0.59) K/uL Eos # (Auto) (0-0.5) K/uL Baso # (Auto) (0-0.2) K/uL Immature Gran # (Auto) (0.00-0.02) K/uL PT 53.8 H (9.0-12.0) Seconds INR 5.5 H (0.9-1.1) Sodium (136-145) mmol/L Potassium (3.5-5.1) mmol/L Chloride (98-107) mmol/L Carbon Dioxide (21-32) mmol/L Anion Gap (3-11) BUN (6-23) mg/dl Creatinine (0.6-1.4) mg/dl Est Cr Clr Drug Dosing Est GFR ( Amer) ml/min Est GFR (Non-Af Amer) ml/min BUN/Creatinine Ratio (10-20) Glucose (70-99(Fasting)) mg/dl Calcium (8.5-10.1) mg/dl Phosphorus (2.5-4.9) mg/dl Magnesium (1.7-2.4) mg/dl Total Bilirubin (0.2-1.0) mg/dl AST (13-39) U/L ALT (7-52) U/L Alkaline Phosphatase (34-104) U/L Total Protein (6.0-8.3) gm/dl Albumin (3.4-5.0) gm/dl Globulin (2.5-4.0) gm/dl Albumin/Globulin Ratio (0.9-2) Lipase (11-82) U/L Urine Color Yellow Urine Appearance Clear (Clear) Urine pH 7.5 (4.5-7.5) Ur Specific [place] 1.015 (1.000-1.030) Urine Protein Negative (Negative) Urine Glucose (UA) Negative (Negative) Urine Ketones Negative (Negative) Urine Blood 1+ H (Negative) Urine Nitrite Negative (Negative) Urine Bilirubin Negative (Negative) Urine Urobilinogen Negative (Negative) Ur Leukocyte Esterase Negative (Negative) Urine WBC (Auto) 1-5 (0-5) /hpf Urine RBC (Auto) 0-4 (0-4) /hpf U Hyaline Cast (Auto) 0 (0-5) /lpf U Epithel Cells (Auto) 0-5 (0-5) /lpf Urine Bacteria (Auto) Negative (Negative) SARS-CoV-2, RNA, NAAT NEGATIVE (NEGATIVE) 02/21/22 02/21/22 Range/Units 12:40 12:40 WBC 21.29 H (4.8-10.8) K/uL RBC 4.80 (4.7-6.1) M/uL Hgb 14.1 (14.0-18.0) g/dL Hct 42.0 (42-52) % MCV 87.5 (80-100) fL MCH 29.4 (25-34) pg MCHC 33.6 (32-36) g/dL RDW Std Deviation 54.5 H (36.4-46.3) fL RDW Coeff of Bertha 17.0 H (11.5-14.5) % Plt Count 332 (130-400) K/uL MPV 8.6 (7.4-10.4) fL Immature Gran % (Auto) 0.6 % Neut % (Auto) 78.2 % Lymph % (Auto) 17.1 % Blaine % (Auto) 4.0 % Eos % (Auto) 0.1 % Baso % (Auto) 0.0 % Neut # (Auto) 16.64 H (1.4-6.5) K/uL Lymph # (Auto) 3.63 H (1.2-3.4) K/uL Blaine # (Auto) 0.86 H (0.11-0.59) K/uL Eos # (Auto) 0.02 (0-0.5) K/uL Baso # (Auto) 0.01 (0-0.2) K/uL Immature Gran # (Auto) 0.13 H (0.00-0.02) K/uL PT (9.0-12.0) Seconds INR (0.9-1.1) Sodium 130 L (136-145) mmol/L Potassium 4.0 (3.5-5.1) mmol/L Chloride 93 L (98-107) mmol/L Carbon Dioxide 30 (21-32) mmol/L Anion Gap 7 (3-11) BUN 26 H (6-23) mg/dl Creatinine 1.03 (0.6-1.4) mg/dl Est Cr Clr Drug Dosing Not Reportable Est GFR ( Amer) 80.8 ml/min Est GFR (Non-Af Amer) 69.7 ml/min BUN/Creatinine Ratio 25.2 H (10-20) Glucose 137 H (70-99(Fasting)) mg/dl Calcium 9.6 (8.5-10.1) mg/dl Phosphorus (2.5-4.9) mg/dl Magnesium (1.7-2.4) mg/dl Total Bilirubin 1.7 H (0.2-1.0) mg/dl AST 27 (13-39) U/L ALT 42 (7-52) U/L Alkaline Phosphatase 125 H (34-104) U/L Total Protein 8.3 (6.0-8.3) gm/dl Albumin 4.4 (3.4-5.0) gm/dl Globulin 3.9 (2.5-4.0) gm/dl Albumin/Globulin Ratio 1.1 (0.9-2) Lipase 7 L (11-82) U/L Urine Color Urine Appearance (Clear) Urine pH (4.5-7.5) Ur Specific [place] (1.000-1.030) Urine Protein (Negative) Urine Glucose (UA) (Negative) Urine Ketones (Negative) Urine Blood (Negative) Urine Nitrite (Negative) Urine Bilirubin (Negative) Urine Urobilinogen (Negative) Ur Leukocyte Esterase (Negative) Urine WBC (Auto) (0-5) /hpf Urine RBC (Auto) (0-4) /hpf U Hyaline Cast (Auto) (0-5) /lpf U Epithel Cells (Auto) (0-5) /lpf Urine Bacteria (Auto) (Negative) SARS-CoV-2, RNA, NAAT (NEGATIVE) Medications Administered Current Inpatient Medications Acetaminophen (Acetaminophen 325 Mg Tab) 650 mg PO Q4H PRN PRN Reason: Pain or Fever Stop: 03/23/22 15:44 Albuterol (Albuterol Hfa 8 Gm Inhaler) 2 puffs INH Q4R PRN; Protocol PRN Reason: wheezing or dyspnea Stop: 03/23/22 17:16 Amlodipine Besylate (Amlodipine Besylate 5 Mg Tab) [facility] Stop: 03/24/22 08:59 Amoxicillin/Clavulanate Potassium (Amoxicillin/Clavulanate 875 Mg Tab) 1 tab PO AMHS [facility] Stop: 03/01/22 08:59 Aspirin (Aspirin 81 Mg Ectab) 81 [facility] Stop: 03/24/22 08:59 Furosemide (Furosemide 40 Mg Tab) 40 mg PO QAM [facility] Stop: 03/24/22 08:59 Sodium Chloride (Nss 1000ml) 1,000 mls @ 80 mls/hr IV .[id number] CARMELINA Stop: 03/23/22 14:59 Last Infusion: 02/21/22 17:15 Dose: 80 mls/hr Documented by: Ceftriaxone Sodium 1,000 mg/ (Dextrose) 60 mls @ 100 mls/hr IV NOW STA; Prot ocol Stop: 02/22/22 08:10 Ipratropium [place] (Ipratropium [place] Neb Soln 0.02% 2.5 Ml Vial) 0.5 mg INH Q6H PRN PRN Reason: Shortness Of Breath Or Wheezing Stop: 03/23/22 16:44 Levalbuterol HCl (Levalbuterol 1.25mg/0.5ml Neb) 1.25 mg INH Q6H PRN PRN Reason: Shortness Of Breath Or Wheezing Stop: 03/23/22 16:44 Miscellaneous (*Tretinoin 0.025 % Cream* Order Awaiting Action) 1 ea N/A QS CARMELINA Stop: 03/24/22 00:00 Last Admin: 02/21/22 23:55 Dose: Not Given Documented by: Morphine Sulfate (Morphine Sulfate 4 Mg/Ml 1 Ml Carp\Vial) 3 mg IV Q3H PRN PRN Reason: Pain Stop: 03/07/22 16:32 Last Admin: 02/22/22 04:56 Dose: 3 mg Documented by: Pantoprazole Sodium (Pantoprazole 40 Mg Tab) 40 mg PO DAILY [facility]; Protocol Stop: 03/24/22 08:59 Polyethylene Glycol (Polyethylene (Miralax) 17 Gm Pack) 17 gm PO DAILY PRN PRN Reason: Constipation Stop: 03/23/22 15:44 Triamcinolone Acetonide (Triamcinolone Acet 0.1% Cr 15 Gm Tube) 1 appln TOP BID PRN PRN Reason: FLARES Stop: 03/23/22 17:16
[2022-02-22] MEDS ORDERED: cefTRIAXone SODIUM 2,000 MG in DEXTROSE 5% 50 ML IV ONE (08:00)
[2022-02-22 08:03] LABS: BUN Creatinine Ratio 22.8 (10-20); Calcium 8.2 mg/dl (8.5-10.1); Creatinine Clr Calc Pharmacy 69.4 ml/min; Est GFR (African American) 92.7 ml/min; Est GFR (Non-African American) 79.9 ml/min; Magnesium 1.8 mg/dl (1.7-2.4); Phosphorus 3.8 mg/dl (2.5-4.9); Potassium 3.9 mmol/L (3.5-5.1)
--- NOTE | 2022-02-22 08:10 | Urology Progress Note ---
Date of Service February 22, 2022 Assessment & Plan (1) Right ureteral stone: Plan: 76yo M admitted with intractable right flank pain and found to have a 13 mm distal right ureteral calculus at the pelvic inlet producing moderate to marked hydronephrosis and hydroureter on the right with swelling of the right kidney. - POD #1 s/p Cystoscopy with Right Ureteroscopy, Retrograde Pyelogram, and Right Ureteral Stent Insertion - Tolerating the ureteral stent with minimal bother. - Afebrile, hemodynamically stable. - Labs reviewed - White count down from 21.29-15.12, Creatinine stable. - UA on admission unremarkable (pt had been on antibiotics as outpatient), continues on PO Augmentin. - Intraop urine culture from right renal pelvis pending - Voiding spontaneously, some hematuria/dysuria as expected. - Continue supportive care, antibiotics, and prn pain control for stent management. - Will arrange outpatient follow-up with our service for definitive stone treatment. - Thank you for allowing us to participate in the acute care of Mr. Andre. Please reconsult us with additional questions, concerns or changes in patient status. Admission and Anticipated Discharge Date Admission Date: February 21, 2022 Supervising Physician Co-Signing Physician Notes I have discussed Mr. Andre's case with SAVANNAH Blanco and agree with the above documentation. He is doing well, S/P ureteral stent placement. We will plan to see him as an outpatient and discuss definitive stone management. Urology will sign off for now, please call with any questions or concerns. Subjective Pt examined at bedside this AM. Awake, resting in bed on arrival. No acute distress. Reports feeling much better today. Notes some flank tenderness. Voiding spontaneously, some hematuria and dysuria as expected. No fevers or chills. Denies nausea/vomiting. Review of Systems Constitutional: as per Subjective / HPI Gastrointestinal: as per Subjective / HPI Genitourinary: + as per Subjective / HPI Physical Exam Constitutional: cooperative and comfortable; no acute distress Respiratory: no respiratory distress and no labored breathing Gastrointestinal (Abdomen): Inspection/Auscultation: abdomen normal to inspection Neurologic: awake Psychiatric: Orientation: alert and oriented x 3 Results & Data ([facility]) Vital Signs (Past 12 Hours) Vital Signs Temp Pulse Pulse Pulse Resp BP Pulse Ox 02/22/22 07:55 37.0 C 58 L 17 133/65 93 06/12/22 23:54 37.0 C 102 H 18 148/79 H 97 02/21/22 23:26 112 H 02/21/22 22:45 36.8 C 94 H 14 134/73 94 02/21/22 22:30 36.9 C 105 H 14 147/81 H 94 02/21/22 22:10 99 H 16 140/81 100 02/21/22 22:00 37.0 C 95 H 16 135/75 96 PG Care Time/CCT Total # of Minutes Spent Total Time Spent with Patient: Total time spent is greater than 50% in coordination of care (as documented) at patient's floor/unit and/or counseling patient: Coding Level of Care Code 30839 Subseq Hosp Care Lvl 2 Diagnoses Right ureteral stone N20.1
--- NOTE | 2022-02-22 08:25 | Fluoroscopy Report ---
FL retrograde includes kub CLINICAL HISTORY: CYSTO/STENT COMPARISON STUDY: CT of the abdomen and pelvis 02/21/2022. FLUOROSCOPY TIME: 73]. FLUOROSCOPIC IMAGES: 6 FINDINGS: Fluoroscopy was provided during cystoscopy, right retrograde exam and right ureteral stent placement. Initial image demonstrates filling defects within the distal right ureter which favor calc sami. Right hydronephrosis is noted. Right ureteral stent is appropriately positioned. IMPRESSION: Fluoroscopy provided during cystoscopy, right retrograde exam and right ureteral stent p lacement. ACT 112: Negative or not required by law. Electronically signed by: Montez Smith M.D. 02/22/2022 8:23 AM
[2022-02-22] MEDS: AMOXICILLIN/CLAVULANATE 875 MG TAB PO SCH ×2 (08:33→16:40)
[2022-02-22] MEDS: FUROSEMIDE 40 MG TAB PO SCH (08:34)
[2022-02-22] MEDS: PANTOprazole 40 MG TAB PO SCH (08:34)
[2022-02-22] MEDS: ASPIRIN 81 MG ECTAB PO SCH (08:34)
[2022-02-22] MEDS: amLODIPine BESYLATE 5 MG TAB PO SCH (08:34)
[2022-02-22 08:47] LABS: Prothrombin Time 54.1 Seconds (9.0-12.0)
[2022-02-22 08:55] LABS: INR 5.6 (0.9-1.1)
[2022-02-22] MEDS ORDERED: PHYTONADIONE 5 MG TAB PO ONE (10:00)
[2022-02-22] MEDS: SODIUM CHLORIDE 0.9% 1000ML 1,000 ML IV SCH ×2 (11:01→15:44)
[2022-02-22] MEDS: lisinopril 40 MG TAB PO SCH (20:00)
[2022-02-23] MEDS ORDERED: ALUMINUM/MAGNESIUM/SIMETH (MAALOX MAX) 30 ML UDC PO PRN (05:09)
[2022-02-23] MEDS: lisinopril 40 MG TAB PO SCH (08:22)
[2022-02-23] MEDS: amLODIPine BESYLATE 5 MG TAB PO SCH (08:23)
[2022-02-23] MEDS: FUROSEMIDE 40 MG TAB PO SCH (08:23)
[2022-02-23] MEDS: AMOXICILLIN/CLAVULANATE 875 MG TAB PO SCH (08:23)
[2022-02-23] MEDS: ASPIRIN 81 MG ECTAB PO SCH (08:23)
[2022-02-23] MEDS: PANTOprazole 40 MG TAB PO SCH (08:23)
[2022-02-23 09:15] LABS: INR 2.2 (0.9-1.1); Prothrombin Time 22.8 Seconds (9.0-12.0)
[2022-02-23 09:23] LABS: Hematocrit (blood only) 38.1 % (42-52); Hemoglobin 12.8 g/dL (14.0-18.0); Mean Corpuscular Hemoglobin 29.6 pg (25-34); Mean Corpuscular Hgb Conc 33.6 g/dL (32-36); Platelet Count 297 K/uL (130-400); RDW Coefficient of Variation 16.9 % (11.5-14.5); RDW Standard Deviation 55.1 fL (36.4-46.3); Red Blood Count 4.33 M/uL (4.7-6.1); White Blood Count 12.94 K/uL (4.8-10.8)
[2022-02-23 09:28] LABS: BUN Creatinine Ratio 25.5 (10-20); Calcium 8.5 mg/dl (8.5-10.1); Est GFR (African American) 90.3 ml/min; Est GFR (Non-African American) 77.9 ml/min; Magnesium 1.8 mg/dl (1.7-2.4); Phosphorus 2.6 mg/dl (2.5-4.9); Potassium 3.4 mmol/L (3.5-5.1)
--- NOTE | 2022-02-23 14:59 | Hospitalist Progress Note ---
Date of Service February 23, 2022 Assessment & Plan (1) Right ureteral stone: Plan: Leukocytosis Right hydronephrosis, hydroureter Patient presented with right flank pain, white blood cell count 22,000, creatinine at baseline UA not consistent with infection However patient has been on Augmentin for past 5 days (for bronchitis) No hematuria On CT scan, 13 mm distal right ureteral calculus at the pelvic inlet producing moderate to marked hydronephrosis and hydroureter on the right with swelling of the right kidney. Urology (Dr. Mahoney )contacted by ED provider IV fluids started, judicious monitoring of IV fluids given patient's mixed humble vular heart disease/monitor fluid status Pain control, antiemetics Patient underwent right ureteral stent placement (02/21/22), tolerated procedure well white blood cell count down to 13,000 Clinically patient doing much better, pain much improved Some hematuria after procedure now resolved also INR was supratherapeutic (at above 5) at that time, now down to 2.2 Received Ancef preoperatively IV ceftriaxone Will cont. on Augmentin (already on for bronchitis) Urine culture negative Plan: Chronic A. fib -On Coumadin, INR above 5, held Coumadin -Received p.o. 2.5 mg vitamin K (due to hematuria after procedure) -Rate controlled, without any beta-jael -now INR 2.2, resume coumadin Mixed valvular heart disease -moderate to severe aortic valve regurg, moderate mitral regurg, moderate to severe tricuspid regurg, Hx of severe pulmonary hypertension -Patient follows with [facility] cardiology -On furosemide, lisinopril, continue Bronchitis, recent outpatient diagnosis -Patient finished prednisone, 5-day course -Currently on Augmentin, is supposed to be on 10-day course -DuoNebs every 4 hours as needed -Patient reports - much improved History of COPD/interstitial lung disease -At home, on albuterol as needed -While inpatient, as needed DuoNebs Admission and Anticipated Discharge Date Admission Date: February 21, 2022 Subjective Patient seen in follow-up of renal stone, ureteral stent placed Patient tolerated procedure well INR was supratherapeutic, now 2.2 Patient had some hematuria, now mostly resolved Denies fevers, chills, chest pain, shortness of breath He has some cough, reports recovering from bronchitis No abdominal pain, nausea vomiting Son updated at the bedside yesterday Review of Systems Review of Systems: All systems reviewed & are unremarkable except as noted in Subjective Physical Exam Physical Exam: Constitutional:J WD/WN, elderly mal e, in NAD Eyes: PERRL, EOMI, conju nctivae normal, an icteric sclerae ENMT: external ear and n ose normal, oropha rynx normal Neck: Supple Respiratory: normal respiratory effort, lungs juan ar to auscultation Cardiovascular:J Rate/Rhythm: + irr egularly irregular Heart Sounds: + murmur (syst.) Chest (Breasts): Chest: normal insp ection of chest Gastrointestinal ( Abdomen): normal bowel sound s, soft, nontender Musculoskeletal: extremities motor strength 5/5 Skin: no rashes, warm an d dry Neurologic: PERRL, EOMI, no fa ce palsy, no dysar thria, moves extre mities Genitourinary: + CVA tenderness (R)- much improved Lymphatic: + lymphadenopathy (1+ LE edema b/l) Results & Data Results & Data ([facility]) Vital Signs (Past 12 Hours) Vital Signs Temp Pulse Pulse Resp BP Pulse Ox 02/23/22 12:21 36.9 C 76 16 118/63 97 02/23/22 07:18 81 02/23/22 07:14 94 02/23/22 07:13 36.7 C 89 22 122/73 85 L 02/23/22 03:30 36.7 C 80 18 117/66 94 Laboratory Results 02/23/22 02/23/22 02/23/22 Range/Units 08:31 08:31 08:31 WBC 12.94 H (4.8-10.8) K/uL RBC 4.33 L (4.7-6.1) M/uL Hgb 12.8 L (14.0-18.0) g/dL Hct 38.1 L (42-52) % MCV 88.0 (80-100) fL MCH 29.6 (25-34) pg MCHC 33.6 (32-36) g/dL RDW Std Deviation 55.1 H (36.4-46.3) fL RDW Coeff of Bertha 16.9 H (11.5-14.5) % Plt Count 297 (130-400) K/uL MPV 9.0 (7.4-10.4) fL PT 22.8 H (9.0-12.0) Seconds INR 2.2 H (0.9-1.1) Sodium 136 (136-145) mmol/L Potassium 3.4 L (3.5-5.1) mmol/L Chloride 100 (98-107) mmol/L Carbon Dioxide 31 (21-32) mmol/L Anion Gap 5 (3-11) BUN 24 H (6-23) mg/dl Creatinine 0.94 (0.6-1.4) mg/dl Est Cr Clr Drug Dosing 68.0 ml/min Est GFR ( Amer) 90.3 ml/min Est GFR (Non-Af Amer) 77.9 ml/min BUN/Creatinine Ratio 25.5 H (10-20) Glucose 160 H (70-99(Fasting)) mg/dl Calcium 8.5 (8.5-10.1) mg/dl Phosphorus 2.6 D (2.5-4.9) mg/dl Magnesium 1.8 (1.7-2.4) mg/dl Medications Administered Current Inpatient Medications Acetaminophen (Acetaminophen 325 Mg Tab) 650 mg PO Q4H PRN PRN Reason: Pain or Fever Stop: 03/23/22 15:44 Last Admin: 02/22/22 20:00 Dose: 650 mg Documented by: Al Hydrox/Mg Hydrox/Simethicone (Aluminum/Magnesium/Simeth (Maalox Max) 30 Ml Udc) 30 ml PO Q6H PRN PRN Reason: Heartburn Stop: 03/25/22 05:08 Last Admin: 02/23/22 05:34 Dose: 30 ml Documented by: Albuterol (Albuterol Hfa 8 Gm Inhaler) 2 puffs INH Q4R PRN; Protocol PRN Reason: wheezing or dyspnea Stop: 03/23/22 17:16 Amlodipine Besylate (Amlodipine Besylate 5 Mg Tab) [facility] [place] Stop: 03/24/22 08:59 Last Admin: 02/23/22 08:23 Dose: 5 mg Documented by: Amoxicillin/Clavulanate Potassium (Amoxicillin/Clavulanate 875 Mg Tab) 1 tab PO BIDM [facility] Stop: 03/01/22 07:59 Last Admin: 02/23/22 08:23 Dose: 1 tab Documented by: Aspirin (Aspirin 81 Mg Ectab) 81 mg PO QAM [facility] Stop: 03/24/22 08:59 Last Admin: 02/23/22 08:23 Dose: 81 mg Documented by: Furosemide (Furosemide 40 Mg Tab) 40 mg PO QAM [facility] Stop: 03/24/22 08:59 Last Admin: 02/23/22 08:23 Dose: 40 mg Documented by: Ipratropium [place] (Ipratropium [place] Neb Soln 0.02% 2.5 Ml Vial) 0.5 mg INH Q6H PRN PRN Reason: Shortness Of Breath Or Wheezing Stop: 03/23/22 16:44 Last Admin: 02/22/22 15:58 Dose: 0.5 mg Documented by: Levalbuterol HCl (Levalbuterol 1.25mg/0.5ml Neb) 1.25 mg INH Q6H PRN PRN Reason: Shortness Of Breath Or Wheezing Stop: 03/23/22 16:44 Last Admin: 02/22/22 15:57 Dose: 1.25 mg Documented by: Lisinopril (Lisinopril 40 Mg Tab) [facility] [place] Stop: 03/24/22 18:14 Last Admin: 02/23/22 08:22 Dose: 40 mg Documented by: Morphine Sulfate (Morphine Sulfate 4 Mg/Ml 1 Ml Carp\Vial) 3 mg IV Q3H PRN PRN Reason: Pain Stop: 03/07/22 16:32 Last Admin: 02/22/22 04:56 Dose: 3 mg Documented by: Pantoprazole Sodium (Pantoprazole 40 Mg Tab) 40 mg PO DAILY [facility]; Protocol Stop: 03/24/22 08:59 Last Admin: 02/23/22 08:23 Dose: 40 mg Documented by: Polyethylene Glycol (Polyethylene (Miralax) 17 Gm Pack) 17 gm PO DAILY PRN PRN Reason: Constipation Stop: 03/23/22 15:44 Potassium Chloride (Potassium Chloride Pwd 20 Meq Pack) 20 meq PO BID [facility] Stop: 03/25/22 20:59 Triamcinolone Acetonide (Triamcinolone Acet 0.1% Cr 15 Gm Tube) 1 appln TOP BID PRN PRN Reason: FLARES Stop: 03/23/22 17:16 Warfarin Sodium (Warfarin Sod 5 Mg Tab) 0 mg PO .COMPLEX CARMELINA Stop: 03/25/22 14:59
[2022-02-23] MEDS ORDERED: WARFARIN SOD 5 MG TAB PO SCH (16:00)
--- NOTE | 2022-02-23 16:09 | Discharge Summary ---
Date of Service February 23, 2022 Admission HPI Per Admitting Provider Patient is a 76-year-old male, with a history of COPD/interstitial lung, (former smoker), CKD stage II, chronic A. fib, on anticoagulation, mixed valvular heart disease -moderate to severe aortic valve regurg, moderate mitral regurg, moderate to severe tricuspid regurg, with severe pulmonary hypertension. Recently, on February 16, he was seen by his PCP, due to getting short of breath. He was diagnosed with bronchitis, and prescribed Augmentin and prednisone. He finished 5 days of prednisone yesterday. He took Augmentin this morning, and is supposed to continue for 10 days. He says he is doing much better from b ronchitis standpoint. He was quite short of breath and coughing, had yellow sputum. Now he hardly coughs at all, and has clear sputum. He presents in ED today, due to right flank pain. The pain started yesterday morning, and patient was hopeful that it would subside on its own. However pain only got worse and therefore he presented in emergency room. Pain is mostly in right flank, with some occasional radiation to his right groin. Denies any hematuria. Reports some urinary frequency. Denies any fevers or chills. No significant abdominal pain, nausea or vomiting. However he does report some dry heaves. 13 mm right ureteral stone present on CT evaluation. White blood cell count was elevated at 22,000. UA negative. However as mentioned above, patient has been on antibiotic since February 16. Denies any palpitations or chest pain. Has mild lower extremity edema, says that is chronic and has not changed. No dizziness or lightheadedness. Urology, Dr. Mahoney was contacted by ED provider. Patient was started on IV fluids, and received IV morphine. Admission Exam Per Admitting Provider Constitutional: WD/WN, vitals as above Eyes: PERRL, conjunctivae normal, anicteric sclerae ENMT: external ear and nose normal, oropharynx normal Neck: trachea midline, no thyromegaly Respiratory: normal respiratory effort, lungs clear to auscultation Cardiovascular: Rate/Rhythm: + irregularly irregular Heart Sounds: + murmur (syst.) Chest (Breasts): Chest: normal inspection of chest Gastrointestinal (Abdomen): normal bowel sounds, soft, nontender, no hepatosplenomegaly Musculoskeletal: no cyanosis or clubbing, extremities motor strength 5/5 Skin: no rashes, warm and dry Neurologic: PERRL, EOMI, accommodation nl, no face palsy, no dysarthria (moves extremities) Genitourinary: + CVA tenderness (R) Lymphatic: + lymphadenopathy (1+ LE edema b/l) Principal Diagnosis Right ureteral stone, Right hydronephrosis, hydroureter Leukocytosis Discharge Exam Constitutional: WD/WN, elderly male, in NAD Eyes: PERRL, EOMI, conjunctivae normal, anicteric sclerae ENMT: external ear and nose normal, oropharynx normal Neck: Supple Respiratory: normal respiratory effort, lungs clear to auscultation Cardiovascular: Rate/Rhythm: + irregularly irregular Heart Sounds: + murmur (syst.) Chest (Breasts): Chest: normal inspection of chest Gastrointestinal (Abdomen): normal bowel sounds, soft, nontender Musculoskeletal: extremities motor strength 5/5 Skin: no rashes, warm and dry Neurologic: PERRL, EOMI, no face palsy, no dysarthria, moves extremities Genitourinary: + CVA tenderness (R)- much improved Lymphatic: + lymphadenopathy (1+ LE edema b/l) Discharge Data Allergies Allergy/AdvReac Type Severity Reaction Status Date / Time petrolatum,white Allergy Unknown Redness of Verified 02/21/22 15:24 [From Vaseline] Skin prednisone Allergy Unknown SWELLING,SICK Verified 02/21/22 15:25 TO STOMACH atenolol AdvReac Unknown Hypertensio Verified 02/21/22 15:24 n strawberry AdvReac Unknown Unknown Verified 02/21/22 15:24 chocolate AdvReac Unknown Uncoded 02/21/22 15:24 Consultations 02/21/22 14:53 ED Decision to Admit Stat 02/21/22 16:25 Consult Urology Routine Procedures Performed Operation Date: 02/21/22 21:00 Actual Procedures p Cystoscopy, Ureteroscopy, Retrograde Pyelogram, Right Ureteral Stent Insertion(Right) - Gilbert Mahoney DO Ordered Studies 02/21/22 12:27 CT abd pelvis wo con Stat IMPRESSION: 1. 13 mm distal right ureteral calculus at the pelvic inlet producing moderate to marked hydronephrosis and hydroureter on the right with swelling of the right kidney. 2. Cholelithiasis with no CT evidence for acute cholecystitis. 3. Centrilobular emphysematous changes of the lung bases with interstitial fibrotic changes well. 4. No other evidence for acute intra-abdominal or pelvic abnormality on these limited noncontrast images. 5. Additional nonacute findings in full report. 02/21/22 21:12 FL retrograde includes kub Routine Hospital Course (1) Right ureteral stone: Leukocytosis Right hydronephrosis, hydroureter Patient presented with right flank pain, white blood cell count 22,000, creatinine at baseline UA not consistent with infection However patient has been on Augmentin for past 5 days (for bronchitis) No hematuria On CT scan, 13 mm distal right ureteral calculus at the pelvic inlet producing moderate to marked hydronephrosis and hydroureter on the right with swelling of the right kidney. Urology (Dr. Mahoney )contacted by ED provider IV fluids started, judicious monitoring of IV fluids given patient's mixed valvular heart disease/monitor fluid status Pain control, antiemetics Patient underwent right ureteral stent placement (02/21/22), tolerated procedure well white blood cell count down to 13,000 Clinically patient doing much better, pain much improved Some hematuria after procedure now resolved also INR was supratherapeutic (at above 5) at that time, now down to 2.2 Received Ancef preoperatively IV ceftriaxone Will cont. on Augmentin (already on for bronchitis) Urine culture negative Chronic A. fib -On Coumadin, INR above 5, held Coumadin -Received p.o. 2.5 mg vitamin K (due to hematuria after procedure) -Rate controlled, without any beta-jael -now INR 2.2, resume coumadin Mixed valvular heart disease -moderate to severe aortic valve regurg, moderate mitral regurg, moderate to severe tricuspid regurg, Hx of severe pulmonary hypertension -Patient follows with [facility] cardiology -On furosemide, lisinopril, continue Bronchitis, recent outpatient diagnosis -Patient finished prednisone, 5-day course -Currently on Augmentin, is supposed to be on 10-day course -DuoNebs every 4 hours as needed -Patient reports - much improved History of COPD/interstitial lung disease -At home, on albuterol as needed -While inpatient, as needed DuoNebs Total Time Total Time Spent Total Time Spent (In Minutes): 40 Discharge Plan Discharge Items Patient Disposition: Home - Self-Care Reason For Visit: RT SIDED FLANK PAIN Discharge Diagnosis: Right ureteral stone, Right hydronephrosis, hydroureter Leukocytosis Activity: Per Instructions section Non-emergency contact: Primary Care Provider and Urologist Call non-emergency contact if: you have any medication questions and your symptoms worsen Follow-up/Referrals: Jostin Dye MD [Primary Care Provider] - (Date & Time 02/26/2022 11:20 AM Provider Patrick Crawley MD Department Family Medicine [facility] ) Diet: Heart Healthy Addtl Attending Provider Instructions: Follow-up with your primary care doctor, the appointment scheduled for you for on February 26. Continue taking your antibiotic, Augmentin, and continue using your inhaler. You will also need to follow-up with urology for final stone management. You will be contacted about the appointment. Your INR was elevated on admission, please follow-up with your anticoagulation clinic as well. For pain, take Tylenol 1000 mg 3 times a day. Pending Studies at Discharge: No Stand-Alone Forms: My [employer] home renovations, Smoking Cessation Medications and DC Order Prescriptions: Continued furosemide 40 mg Tablet 40 mg PO QAM RF: 0 amlodipine 5 mg Tablet 5 mg PO QAM RF: 0 aspirin [Mendel Low Dose Aspirin] 81 mg Tablet,Delayed Release (Dr/Ec) 81 mg PO QAM RF: 0 lisinopril 40 mg Tablet 40 mg PO QAM RF: 0 Centrum Silver Men 300-600-300 mcg Tablet 1 tab PO DAILY RF: 0 glucosamine sulfate 1,000 mg Capsule 1,000 mg PO DAILY RF: 0 tretinoin 0.025 % Cream 1 applic TOPICAL HS RF: 0 triamcinolone acetonide 0.1 % Cream 1 applic TOPICAL BID PRN (Reason: FLARES) RF: 0 albuterol sulfate 90 mcg/actuation HFA aerosol inhaler 2 puff INHALATION Q4 PRN (Reason: wheezing or dyspnea) RF: 0 amoxicillin-pot clavulanate 875-125 mg tablet 1 tab PO AMHS RF: 0 warfarin 5 mg tablet See Rx Instructions .ROUTE .COMPLEX RF: 0 omeprazole 20 mg capsule,delayed release(DR/EC) 20 mg PO DAILY RF: 0 Discharge Orders: Discharge Order (Routine); Ordered 02/23/22 Ordered By: Domo Coleman Admission Data Admit Date/Time: 02/21/22 15:45 Attending Provider: Domo oCleman Admit Provider: Domo Coleman Primary Care Provider: Jostin Dye Other Providers: Domo Coleman ; Gilbert Mahoney
[2022-02-23] MEDS ORDERED: POTASSIUM CHLORIDE PWD 20 MEQ PACK PO SCH (21:00)
[2022-02-24] MEDS ORDERED: WARFARIN SOD 2.5 MG TAB PO SCH (16:00)
== END 2022-02-23 16:46 | disposition home or self-care (01) | DRG 660 ==
LOC: ED 12:02 → 2S 15:45

== ENCOUNTER 2024-11-17 10:52 | Inpatient (IN) ==
--- NOTE | 2024-11-17 11:11 | Emergency Department Note ---
Impression & Plan Acute pain of left hip ED Provider Note NAME: SHAUN MELGAR AGE: 79 SEX: Male INFORMANT: Patient ED PROVIDER(S): Brody Cintron MD CHIEF COMPLAINT: Left hip pain PLAN: Disposition: Admitted Outpatient prescription management: none Referral: None MEDICAL DECISION MAKING: Patient presented because of left hip pain. There was some swelling noted on examination without erythema. Range of motion was somewhat limited. Patient underwent x-ray imaging after initially declining analgesia. No acute fracture was seen. No dislocation. Patient was sent for CT imaging. He has slight leukocytosis and slightly supratherapeutic INR noted on laboratory testing. CT imaging did not reveal any significant acute pathology. No fracture, dislocation or hematoma noted per radiology. I did discuss possibility of MR imaging with the patient but due to metal fragments found previously the patient is unable to have an MRI. Patient was given a dose of Dilaudid as he was having increased pain. He did receive fentanyl prehospital. Patient, family and I discussed further management in the hospital given his ambulatory dysfunction and pain in the hip area. They were in agreement. Consultation was made the [facility] hospitalist service. Patient was evaluated in the ER and admitted under Dr. Tapia's service. Care/management discussed with: manager spa Level of care consideration(s): After review of the information above and other included data, I feel the patient requires escalation of care to admission Triage Nursing notes: reviewed and agree them. Vital Signs: reviewed and remarkable for no significant abnormalities Additional History obtained from: none Chronic Medical/Social Conditions affecting care: Anticoagulation Prior/ Outside/ External records reviewed: none Differential Diagnosis: Fracture, dislocation, hematoma, neurovascular compromise, compartment syndrome, soft tissue injury, as well as other pathologies. Diagnostics, independently interpreted by me: ECG: Twelve-lead ECG reveals atrial fibrillation with PVCs at 83 bpm. Incomplete right bundle branch block. Nonspecific ST. No ST elevation. Cardiac Monitoring: Cardiac monitoring ordered by me: The patient was placed on continuous cardiac monitoring and observed. It revealed atrial fibrillation at 88 bpm. Medical decision rules: none Imaging studies: Hip x-ray and CT scan as noted above. HPI: 79 year old Male arrives for evaluation of left hip pain. This started a week ago and was improving but worsened yesterday. He was putting on his shoe yesterday and slipped and twisted. Allen a sharp pain and swelling in the hip. Pain worsened over night. Difficulty bearing weight. The patient also notes the following associated symptoms, none. The patient has been using a walker for relieving factors. Current pain is rated as 7/10. Declines analgesia. Pt denies LOC, headache, visual changes, neck pain, chest pain, breathing difficulties, nausea, vomiting, abdominal pain, back pain, other extremity pain, numbness, weakness, open wounds, active bleeding, or other complaints. . PAST MEDICAL HISTORY: See Below, afib, anticoagulated, MVR PAST SURGICAL HISTORY: See Below, Cardiac cath SOCIAL HISTORY: See Below, HOME MEDICATIONS: See Below ALLERGIES: See Below VITALS: See Below PHYSICAL EXAMINATION: GENERAL: Awake, alert, uncomfortable-appearing, in no distress HENT: Normocephalic, atraumatic. Oropharynx unremarkable. EYES: Normal conjunctiva. Sclera non-icteric. NECK: Inspection normal. Non-tender. Supple. No nuchal rigidity. FROM. No masses. RESPIRATORY: Clear to auscultation. No wheezes. No rales. Normal respiratory effort. CARDIAC: Normal rate. Normal rhythm. No murmurs. No rubs. Extremities warm and well perfused. Pulses equal. No JVD. GI: Soft, non-distended. No tenderness to palpation. No rebound or guarding. No masses. MUSCULOSKELETAL: Atraumatic. Left hip swelling and gluteal TTP. Chest examination reveals no tenderness. There is no CVA tenderness to palpation. No joint edema. LOWER EXTREMITIES: Calves are equal size bilaterally and non-tender. No edema. Chronic discoloration. NEURO: Normal sensorium. No sensory or motor deficits noted. SKIN: No rash or jaundice noted. PROCEDURES: none CRITICAL CARE: none OBSERVATION NOTE: none Past Med/Surg History Problem List (Updated 11/17/24 @ 15:19 by Katharine Noyola PA-C) Ambulatory dysfunction Acute pain of left hip (Acute) Kidney stones Reflux (Chronic) Osteoarthritis (Chronic) Hypertensive urgency (Acute) Rotator cuff tear Weakness (Acute) Encounter for pre-operative examination Right ureteral stone (Acute) Smoker Encounter for pre-operative examination Flank Pain (Acute) Congestive heart failure Lung disease emphysema and fibrotic changes on chest CT - Does not follow frame bender Hyponatremia Medical History GERD (gastroesophageal reflux disease) Pulmonary nodules Interstitial lung disease Pulmonary HTN SEVERE (PASP 68MMHG) Valvular disease MODERATE TO SEVERE AR, POSSIBLE SEVERE MR (NOT PRECISE), SEVERE TR PER 06/06/18 ECHO Retained metal fragment IN EYE (NO MRI) Atrial fibrillation CHRONIC/PERSISTENT S/P CARDIOVERSION (07/2016) - follows Dr. Gerber yearly Hypertension Surgical History Hx of removal of cyst pilonidial cyst History of cystoscopy with stent placement History of repair of rotator cuff AND BICEP REPAIR (RIGHT) History of cataract surgery BILATERAL Family History Father Family history of diabetes mellitus Social History Smoking Status: Current some day smoker Tobacco Type: Cigars Second Hand Exposure: No; Do You Dip or Chew Tobacco: No; Hx Alcohol Use: No Hx Substance Use: No Preferred Language: Swedish Communication Ability: Effective Bead Inspector Required: No Beliefs That Will Affect Care: None marital status: Current Living Situation: Spouse How many Children do You have: 2 Feels Safe at Home: Yes Assistive Devices: Denture - Upper, Denture - Lower and Glasses Allergies Allergies Allergy/AdvReac Type Severity Reaction Status Date / Time prednisone Allergy Intermediate SWELLING,SICK Verified 08/01/24 13:19 TO STOMACH chocolate flavor Allergy Mild Rash Verified 08/01/24 13:19 petrolatum,white Allergy Mild Redness of Verified 08/01/24 13:19 [From Vaseline] Skin atenolol AdvReac Mild Hypertensio Verified 08/01/24 13:19 n strawberry AdvReac Mild Rash Verified 08/01/24 13:19 Home Meds Home Medications Medication Instructions Recorded Confirmed lisinopril 40 mg tablet 40 mg PO QAM 06/14/18 11/17/24 [id number] 300 mcg-K 60 1 tab PO QAM 06/22/18 11/17/24 mcg-lycop 600 mcg-lutein 300 mcg tablet (Centrum Silver Men) triamcinolone acetonide 0.1 % 1 applic topical BID PRN Rash on 06/22/18 11/17/24 topical cream BLE albuterol sulfate 90 mcg/actuation 2 puff inhalation Q4 PRN wheezing 02/21/22 11/17/24 aerosol inhaler or dyspnea warfarin 5 mg tablet See Rx Instructions .Route .COMPLEX 02/21/22 11/17/24 spironolactone 25 mg tablet 12.5 mg PO DAILY 07/20/23 11/17/24 torsemide 20 mg tablet 20 mg PO DAILY 07/20/23 11/17/24 Lactobacillus acidophilus 1,000 mmu cells PO DAILY 11/17/24 11/17/24 apple cider vinegar 300 mg tablet 300 mg PO TID 11/17/24 11/17/24 ascorbic acid (vitamin C) 500 mg 500 mg PO DAILY 11/17/24 11/17/24 tablet (Vitamin C With Corin Hips) cholecalciferol (vitamin D3) 10 10 mcg PO DAILY 11/17/24 11/17/24 mcg (400 unit) tablet (Vitamin D3) glucosamine sulfate 1,000 mg tablet 1,000 mg PO QAM 11/17/24 11/17/24 omeprazole 20 mg capsule,delayed 20 mg PO DAILY 11/17/24 11/17/24 release selenium 50 mcg tablet 50 mcg PO DAILY 11/17/24 11/17/24 zinc 50 mg tablet 50 mg PO DAILY 11/17/24 11/17/24 Results & Data (ED) Vital Signs Vital Signs - 24 hr 11/17/24 11:07 11/17/24 11:08 11/17/24 11:09 Temperature 36.7 C Temperature Source Oral Pulse Rate 99 H Pulse Rate [Right Finger] 100 H Pulse Rhythm [Right Finger] Irregular Respiratory Rate 18 Respiratory Effort / Characteristics Non-Labored Spontaneous Respiratory Depth Normal Respiratory Pattern Regular Blood Pressure Blood Pressure [Right Arm] 132/80 Blood Pressure Mean Blood Pressure Mean [Right Arm] 97 Pulse Oximetry 91 Oxygen Delivery Method Room Air Sepsis Recent Fever Within 48 Hours No Sepsis New/Unexplained Change in Mental Status No Sepsis Action Taken by Nursing No Action Required 11/17/24 13:00 Temperature Temperature Source Pulse Rate 88 Pulse Rate [Right Finger] Pulse Rhythm [Right Finger] Respiratory Rate 21 Respiratory Effort / Characteristics Respiratory Depth Respiratory Pattern Blood Pressure 127/78 Blood Pressure [Right Arm] Blood Pressure Mean 94 Blood Pressure Mean [Right Arm] Pulse Oximetry 94 Oxygen Delivery Method Sepsis Recent Fever Within 48 Hours Sepsis New/Unexplained Change in Mental Status Sepsis Action Taken by Nursing Laboratory Data 11/17/24 11:20 11/17/24 11:20 Lab Results 11/17/24 Range/Units 11:20 WBC 12.49 H (4.8-10.8) K/ul RBC 3.87 L (4.70-6.10) M/uL Hgb 13.2 L (14.0-18.0) g/dl Hct 38.4 L (42.0-52.0) % MCV 99.2 (80.0-100.0) fL MCH 34.1 H (25.0-34.0) pg MCHC 34.4 (32.0-36.0) g/dL RDW Std Deviation 51.7 H (36.4-46.3) fL RDW Coeff of Bertha 14.2 (11.5-14.5) % Plt Count 191 (130-400) K/uL MPV 9.4 (9.4-12.4) fL Immature Gran % (Auto) 0.5 % Neut % (Auto) 71.1 % Lymph % (Auto) 16.8 % [place] % (Auto) 10.1 % Eos % (Auto) 1.0 % Baso % (Auto) 0.5 % Neut # (Auto) 8.88 H (1.40-6.50) K/uL Lymph # (Auto) 2.10 (1.20-3.40) K/uL [place] # (Auto) 1.26 H (0.11-0.59) K/uL Eos # (Auto) 0.13 (0.00-0.50) K/uL Baso # (Auto) 0.06 (0.00-0.20) K/uL Immature Gran # (Auto) 0.06 (0.01-0.20) K/uL PT 31.4 H (9.0-12.0) Seconds INR 3.2 H (0.9-1.1) APTT 35 H (21-31) Seconds PTT Ratio 1.3 Sodium 135 L (136-145) mmol/L Potassium 4.5 (3.5-5.1) mmol/L Chloride 104 (98-107) mmol/L Carbon Dioxide 27 (21-32) mmol/L Anion Gap 4 (3-11) BUN 23 (6-23) mg/dl Creatinine 0.95 (0.6-1.4) mg/dl Est Cr Clr Drug Dosing 64.0 ml/min eGFR 80.92 BUN/Creatinine Ratio 24.2 H (10-20) Glucose 92 (70-99(Fasting)) mg/dl Calcium 9.4 (8.6-10.3) mg/dl Total Bilirubin 1.2 H (0.2-1.0) mg/dl AST 30 (13-39) U/L ALT 26 (7-52) U/L Alkaline Phosphatase 81 (34-104) U/L Total Protein 7.3 (6.0-8.3) gm/dl Albumin 4.2 (3.4-5.0) gm/dl Globulin 3.1 (2.5-4.0) gm/dl Albumin/Globulin Ratio 1.4 (0.9-2) Procalcitonin 0.04 (0-0.5) ng/ml Administered Medications Hydromorphone HCl (Hydromorphone Inj 0.5 Mg/0.5 Ml Syr) 0.25 mg IV Q15M PRN PRN Reason: Pain Stop: 12/01/24 12:26 Last Admin: 11/17/24 12:33 Dose: 0.25 mg Documented By: NENO Discontinued Medications Ondansetron HCl (Ondansetron Inj 2 Mg/Ml 2 Ml Vial) 4 mg IV NOW STA Stop: 11/17/24 12:28 Last Admin: 11/17/24 12:33 Dose: 4 mg Documented By: NENO Imaging Data Radiologist's Impression: Hip X-Ray 11/17/24 11:12 XR hip LT min 2V CLINICAL HISTORY: left hip pain COMPARISON: None FINDINGS: There are atherosclerotic calcifications. No fracture or dislocation seen. No significant degenerative change of the left hip. IMPRESSION: No fracture seen. ACT 112: Negative or not required by law. Electronically signed by: Franko Coombs M.D. 11/17/2024 11:[address] 11/17/24 11:44 CT hip LT wo con CLINICAL HISTORY: left hip pain and swelling COMPARISON STUDY: X-ray earlier today FINDINGS: There is osteopenia. There are minimal degenerative changes at the left hip. No fracture or dislocation seen. No significant soft tissue hematoma or abscess. There are atherosclerotic calcifications. No evidence of osteomyelitis. IMPRESSION: No fracture seen. ACT 112: Negative or not required by law. Electronically signed by: Franko Coombs M.D. 11/17/2024 12:23 PM Discharge Plan Visit Data Chief Complaint: Hip Pain ED Provider: Brody Cintron Discharge Problem: Acute pain of left hip
--- NOTE | 2024-11-17 11:39 | XRay Report ---
XR hip LT min 2V CLINICAL HISTORY: left hip pain COMPARISON: None FINDINGS: There are atherosclerotic calcifications. No fracture or dislocation seen. No significant degenerative change of the left hip. IMPRESSION: No fracture seen. ACT 112: Negative or not required by law. Electronically signed by: Franko Coombs M.D. 11/17/2024 11:37 AM
[2024-11-17 11:56] LABS: Basophils # (auto) 0.06 K/uL (0.00-0.20); Basophils % (auto) 0.5 %; Eosinophils # (auto) 0.13 K/uL (0.00-0.50); Hematocrit (blood only) 38.4 % (42.0-52.0); Hemoglobin 13.2 g/dl (14.0-18.0); Immature Granulocytes # (auto) 0.06 K/uL (0.01-0.20); Immature Granulocytes % (auto) 0.5 %; Lymphocytes % (auto) 16.8 %; Mean Corpuscular Hemoglobin 34.1 pg (25.0-34.0); Mean Corpuscular Hgb Conc 34.4 g/dL (32.0-36.0); Mean Corpuscular Volume 99.2 fL (80.0-100.0); Mean Platelet Volume 9.4 fL (9.4-12.4); Monocytes # (auto) 1.26 K/uL (0.11-0.59); Monocytes % (auto) 10.1 %; Neutrophils # (auto) 8.88 K/uL (1.40-6.50); Neutrophils % (auto) 71.1 %; Platelet Count 191 K/uL (130-400); RDW Coefficient of Variation 14.2 % (11.5-14.5); RDW Standard Deviation 51.7 fL (36.4-46.3); Red Blood Count 3.87 M/uL (4.70-6.10); White Blood Count 12.49 K/ul (4.8-10.8)
[2024-11-17 11:58] LABS: Albumin Globulin Ratio 1.4 (0.9-2); Albumin Level 4.2 gm/dl (3.4-5.0); BUN Creatinine Ratio 24.2 (10-20); Bilirubin,Total 1.2 mg/dl (0.2-1.0); Calcium 9.4 mg/dl (8.6-10.3); Globulin 3.1 gm/dl (2.5-4.0); Potassium 4.5 mmol/L (3.5-5.1); Total Protein 7.3 gm/dl (6.0-8.3)
[2024-11-17 12:11] LABS: INR 3.2 (0.9-1.1); Partial Thromboplastin Ratio 1.3; Partial Thromboplastin Time 35 Seconds (21-31); Prothrombin Time 31.4 Seconds (9.0-12.0)
--- OUTSIDE RECORDS SUMMARY | 2024-11-17 12:19 | External Medical Summary ---
Author Name Unknown Address Unknown Organization [id number][place] [place] [address] [place] [address] Laboratory Report Ordering Provider Test Date Status LUÍS LUCIO 10/25/2024 10:01:30 Final Warfarin Therapy
INR: 2 .0-3.0 conventional anticoagulation
INR: 2.5- 3.5 high intensity anticoagulation Observation Date Value Abnormality Reference (Units ) Status PT 10/25/2024 10:01:30 25.1 Above high normal 11 .6-15.2 (seconds) Final INR 10/25/2024 10:01:30 2.2 Above high normal 0. 8-1.2 Final Performing Location [facility] [place] [address] [place] [address]
--- OUTSIDE RECORDS SUMMARY | 2024-11-17 12:19 | External Medical Summary | Summary of Care ---
Author Name Unknown Organization [facility] Address [address] [facility] [place] [address] Phone [phone] Care Team Providers Care Supervisor Travel Trailer Name Role Phone Patrick Crawley MD Primary Care Provide r Reason for Visit * Reason Comments Outpatient Testing Encounter Details Date Type Department Care Team (Late st Contact Info) Description 10/25/2024 10:00 AM EST Laboratory Laboratory [address] [place] [phone] [place] [phone] Chronic atrial fibrillation (HCC); Anticoagulation management encounter; hand drawer in helper current use of anticoagulant therapy Allergies Active Allergy Reactions Criticality Noted Date Comments Atenolol Hypertension 06/19/2015 Food (See Comments) 10/19/2011 Chocolate,strawberry Other Allergy (See Comments) 10/19/2011 environmental Petrolatum 10/19/2011 Redness and itchiness documented as of this encounter (statuses as of 10/25/2024) Medications CLOBETASOL PROPIONATE 0.05 % EX OINTIndications:D ermatitis Apply to affected area twice daily as needed 60 g 5 07/18/20 12 Active METROCREAM 0.75 % EX CREAIndications:R osacea Apply to face twice daily 45 g 5 07/18/20 12 Active TRIAMCINOLONE ACETONIDE 0.1 % EX OINTIndications:O ther atopic dermatitis and related conditions APPLY TO AFFECTED AREA TWICE DAILY as needed for flares 454 g 1 03/23/20 13 Active TRETINOIN 0.025 % EX CREAIndications:A cne Apply to face every night 45 g 5 06/06/20 14 Active Mometasone Furoate 0.1 % creamIndications: Dermatitis Apply to affected areas twice daily as needed 45 g 5 08/26/20 15 Active Multiple Vitamins-Minerals (MULTIVITAMIN ADULT) TABS Take by mouth. Act maral Zinc 50 MG Oral Tablet Take 1 Tablet by mouth in the morning. Active Selenium 50 MCG Oral Tablet Take by mouth daily. Active Apple Cider Vinegar 188 MG Oral Capsule Take by mouth. Ac tive Vitamin D3 10 MCG (400 UNIT) Oral Tablet Chewable Take by mouth. Active Calcium 600 MG Oral Tablet Take 1 Tablet by mouth in the morning and 1 Tablet at noon and 1 Tablet in the evening. Take with meals. Active Vitamin C & D3/Corin Hips 500-1000-20 MG-UNIT-MG Oral Capsule (Vit C-Cholecalciferol -Corin Hip) Take by mouth. Acti ve Glucosamine Sulfate 1000 MG Oral Tablet Take by mouth. Act maral Hydrocortisone 2.5 % External CreamIndications: Rosacea Mix 60 gm with 180 gm Eucerin, use topically 3 times a day as needed. 240 g 5 01/20/20 23 Active Benzonatate 100 MG Oral Capsule Take 1 Capsule by mouth 3 times a day as needed for Cough. 30 Capsule 1 09/14/19 24 Active Albuterol Sulfate HFA 108 (90 Base) MCG/ACT Inhalation Aerosol SolutionIndicatio ns:Pulmonary nodules,Pulmonary hypertension (HCC),Chronic atrial fibrillation (HCC),Nonrheumati c aortic valve insufficiency,ILD (interstitial lung disease) (HCC) Inhale 2 Puffs by mouth every 4 hours as needed for Wheezing or Dyspnea. 18 g 2 01/05/20 24 Active Spironolactone 25 MG Oral Tablet (Aldactone)Indica tions:HTN, goal below 140/90,Localized edema,Nonrheumati c aortic valve insufficiency,Non rheumatic mitral valve regurgitation TAKE ONE-HALF TABLET BY MOUTH EVERY DAY 45 Tablet 3 5 9:36 AM EST 04/05/20 24 025 Active Torsemide 20 MG Oral Tablet (Demadex)Indicati ons:HTN, goal below 140/90,Localized edema,Nonrheumati c aortic valve insufficiency,Non rheumatic mitral valve regurgitation TAKE ONE TABLET BY MOUTH EVERY MORNING 90 Tablet 3 5 9:36 AM EST 04/05/20 24 025 Active Omeprazole 20 MG Oral Capsule Delayed Release (PriLOSEC) TAKE ONE CAPSULE BY MOUTH EVERY DAY 90 Capsule 3 4 5:10 PM EST 08/15/20 24 025 Active Lisinopril 40 MG Oral TabletIndications :HTN, goal below 140/90 TAKE ONE TABLET BY MOUTH EVERY DAY IN THE MORNING 90 Tablet 1 4 8:16 AM EST 09/04/20 24 025 Active Warfarin Sodium 5 MG Oral Tablet (Coumadin)Indicat ions:Chronic atrial fibrillation (HCC),Anticoagula tion management encounter,hand drawer in helper current use of anticoagulant therapy TAKE ONE-HALF TABLET ON MONDAYS, WEDNESDAYS, AND FRIDAYS. TAKE 1 TABLET ALL OTHER DAYS OR DIRECTED BY ANTICOAGULATION CLINIC 80 Tablet 3 5 11:19 AM EST 10/08/19 25 Active documented as of this encounter (statuses as of 10/25/2024) Active Problems Problem Noted Date Diagnosed Date S/P coronary angiogram 10/10/2024 Overview (10/10/2024): Coronary disease - hemodynamically insignificant -Distal LMCA 20-30% stenosis -Proximal and mid LAD is heavily calcified -Mid LAD has 3 sequential lesions with 50-60% eccentric stenoses that are proximal and distal to a large septal flat sorting machine clerk -1st diagonal branch has 30% stenosis at the ostium -Proximal ramus intermedius has mild luminal irregularities -Ostial LCX has 30-40% stenosis followed by mild diffuse disease -Ostial RCA 40% stenosis -Proximal RCA 30% stenosis -Distal RCA 30% stenosis -Acute marginal is a small vessel with 90% stenosis at the ostium -LVEDP 6 mmHg S/p percutaneous right heart catheterization Overview (10/10/2024): Right Heart Catheterization on room air: RA = 7 mmHg | RV = 53/6 mmHg | PA = 63/19 (36) mmHg | PW = 9 mmHg | TPG = 27 mmHg CO (Indirect Lyn) = 4.42 L/min, CI = 2.28 L/min/m2 PVR = 6.1 Noel units MAP = 70 PRE ALGEBRA TEACHER = 0.7 | HYUN = 6.3 PA sat: 52% AO sat: 85% Chronic obstructive pulmonary disease 02/26/2022 Gastro-esophageal reflux disease without esophag itis 08/18/2021 Pulmonary nodules 10/10/2019 Former smoker 04/09/2019 History of nonmelanoma skin cancer 10/27/2017 Overview (10/27/2017): SCC left forearm 2015 Tricuspid valve regurgitation 02/08/2017 Pulmonary hypertension 02/08/2017 Chronic atrial fibrillation 08/03/2016 Mitral regurgitation 08/03/2016 Primary hypertension 05/04/2016 Aortic regurgitation 05/04/2016 Rosacea 01/16/2013 Edema 12/25/1998 documented as of this encounter (statuses as of 10/25/2024) Resolved Problems Problem Noted Date Diagnosed Date Resolved Date 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 02/24/2022 01/24/2024 Nontoxic multinodular goiter 08/18/2021 01/24/2024 CKD (chronic kidney disease), stage II 08/18/2021 01/24/2024 Overview (08/19/2021): EGFR 70 ILD (interstitial lung disease) 04/09/2019 09/06/2024 Screening cholesterol level 06/05/2018 04/16/2021 Dermatitis 01/16/2013 10/27/2017 Neoplasm of uncertain behavior of skin 01/16/2013 10/27/2017 Other atopic dermatitis 01/2021 Overview (07/05/2017): ICD-10 update of inactive term PILONIDAL CYST W-O ABSC 01/2021 documented as of this encounter (statuses as of 10/25/2024) Immunizations Name Administration Dates Next Due COVID-19 mRNA, LNP-s, No Pre serve, 2-Dose Series (Moderna) 12/31/2020,11/27/2020 COVID-19, MRNA-LNP, PF, 30 M CG/0.3 mL, 12 YRS AND ABOVE, IM (PFIZER-Comirnaty) 07/25/2023 COVID-19, mRNA, LNP-s, PF, B ooster, 100mcg/0.5mg (Moderna) 01/18/2022,07/31/2021 Pneumococcal Conjugate Vacc, 13 Valent (Prevnar) 08/07/2018 Pneumococcal Polysaccharide PPV23 (Pneumovax) 07/27/2011 Seasonal Influenza, High Dos e, Trivalent, PF, IM (Fluzone HD) 05/17/2024 Seasonal Influenza, Quadriva lent Hd (Fluzone Hd) 06/16/2023,06/15/2022,08/10/2021 documented as of this encounter Social History Tobacco Use Types Packs/Day Years Used Date Smoking Tobacco: Former Cigarettes 0.8 40 0 10/11/1974 - 10/11/2014 Cigars Smokeless Tobacco: Never Alcohol Use Standard Drinks/Week Comments No 0 (1 standard drink = 0.6 oz pur e alcohol) PHQ-2 Answer Date Recorded PHQ Adult Total Score 0 09/06/2024 Sex and Gender Information Value Date Recorded Sex Assigned at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 Legal Sex Male 6:13 AM EST Gender Identity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 Sexual Orientation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 [employer]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 No t on file documented as of this encounter Plan of Treatment Upcoming Encounters Date Type Department Care Team (Late st Contact Info) Description 10/25/2024 5:30 PM EST Anticoagulation Pharmacy, [address] [place] [id number] [place] [phone] 04/25/2025 10:00 AM EDT Office Visit Cardiology [address] [place] [phone] Jamia Abebe PA-C [address] [place] [phone] 04/29/2025 10:00 AM EDT Office Visit Family Medicine [address] [place] [phone] Patrick Crawley MD [address] [place] [address] [place] [phone] Pending Results Name Type Priority Associated Diagnoses Date /Time PT INR Lab Routine Chronic atrial fibrillation (HCC) Anticoagulation management encounter hand drawer in helper current use of anticoagulant therapy 10/25/2024 10:01 AM EST Health Maintenance Due Date Last Done Comments Alpha-1 Antitrypsin 1962 Zoster Vaccines (1 of 2) 1994 DTap/Tdap Vaccines (1 - Tdap) 12/23/1999 12/22/1999 Adult Wellness Visit 2010 COVID-19 Vaccine ( season) 2024 07/25/2023, 01/18/2022, 07/31/2021, Additional history exists Albumin/Creatinine Ratio 07/20/2025 07/20/2022, 12/0 03/2021 Depression Screening 09/06/2025 09/06/2024 GFR 10/10/2025 10/10/2024, 12/2 02/2024, 01/24/2024, Additional history exists O2 ASSESSMENT COMPLETED IN PAST YEAR FOR COPD 10/10/2025 10/10/2024 Pneumococcal Vaccine: 50+ Years Completed 08/07/2018, 07/27/2011 Lung Cancer Screening Completed 06/30/2020 , 06/28/2019, 06/28/2018 Influenza Vaccine (FLU shot) Completed 01/2024, 06/16/2023, 06/15/2022, Additional history exists HPV (Gardasil) Vaccine Aged Out No lo nger eligible based on patient's age to complete this topic Hepatitis B Vaccine Aged Out No longe r eligible based on patient's age to complete this topic MENINGOCOCCAL (MENACTRA/MENVEO) Aged Out No longer eligible based on patient's age to complete this topic documented as of this encounter Medical Devices Implanted Type Area Manager Intelligence Device Identifier Shelf Expiration Date Model / Serial / Lot Cath Thermodilution 6fr - [id number] Implanted:Qty: 1 on 10/10/2024 by Issa Roman MD at [facility] [employer] [id number] 03/20/2026 [id number] / / [id number] documented as of this encounter Visit Diagnoses Diagnosis Chronic atrial fibrillation (HCC) Atrial fibrillation Anticoagulation management encounter Encounter for therapeutic drug monitoring hand drawer in helper current use of anticoagulant therapy documented in this encounter Care Teams Supervisor Travel Trailer Relationship Specialty Start Date End Date Patrick Crawley MD [address] [place] [address] [place] [phone] PCP - General Family Medicine 01/24/24 documented as of this encounter"
--- OUTSIDE RECORDS SUMMARY | 2024-11-17 12:19 | External Medical Summary | Summary of Care ---
Author Name Unknown Organization [facility] Address [address] [place] [address] Phone [phone] Care Team Providers Care Employment Attorney Name Role Phone Patrick Crawley MD Primary Care Provide r Reason for Referral * Evaluate & Treat - Unlimited Visits (Within 10 days (routine)) - Authorized Specialty Diagnoses / Procedures Referred By Contact Referred To Contact Cardiovascular Surgery / Cardiothoracic Surgery Diagnoses Severe mitral regurgitation Severe tricuspid regurgitation CAD (coronary artery disease) Tom Hernandez MD [address] [place] [address] Phone: tel: fax: Referral ID Status Reason Start Date Expiration Date Visits Requested Visits Authorized [id number] Authorized Specialty Services Required 11/02/[phone] Question Answer Referral Priority Within 10 days (routine) Where should this appointment be scheduled? [facility] Comments Severe MR, Severe TR, prior CABG, hx ILD Has 3 sequential 50-60% lesions in the LAD If not a surgical candidate would PCI the LAD (per David) Encounter Details Date Type Department Care Team (Late st Contact Info) Description 11/02/2024 Orders Only [facility]iology [facility] [address] [place] [address] Neisha Padgett, RN Severe mitral regurgitation*; Severe tricuspid regurgitation; CAD (coronary artery disease) Allergies Active Allergy Reactions Criticality Noted Date Comments Atenolol Hypertension 06/19/2015 Food (See Comments) 10/19/2011 Chocolate,strawberry Other Allergy (See Comments) 10/19/2011 environmental Petrolatum 10/19/2011 Redness and itchiness documented as of this encounter (statuses as of 11/02/2024) Medications CLOBETASOL PROPIONATE 0.05 % EX OINTIndications:D [...] (Coumadin)Indicat ions:Chronic atrial fibrillation (HCC),Anticoagula tion management encounter,FDC current use of anticoagulant therapy TAKE ONE-HALF TABLET ON MONDAYS, WEDNESDAYS, AND FRIDAYS. TAKE 1 TABLET ALL OTHER DAYS OR DIRECTED BY ANTICOAGULATION CLINIC 80 Tablet 3 5 11:19 AM EST 10/08/19 25 Active documented as of this encounter (statuses as of 11/02/2024) Active Problems Problem Noted Date Diagnosed Date S/P coronary angiogram 10/10/2024 Overview (10/10/2024): Coronary disease - hemodynamically insignificant -Distal LMCA 20-30% stenosis -Proximal and mid LAD is heavily calcified -Mid LAD has 3 sequential lesions with 50-60% eccentric stenoses that are proximal and distal to a large septal hoist operator -1st diagonal branch has 30% stenosis at [...] = 6.1 Noel units MAP = 70 SCROLL SAW OPERATOR = 0.7 | HYUN = 6.3 [place] [...] as of this encounter (statuses as of 11/02/2024) Resolved Problems Problem Noted Date Diagnosed Date [...] as of this encounter (statuses as of 11/02/2024) Immunizations Name Administration Dates Next Due COVID-19 [...] 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 No t on file documented as of this encounter Plan of Treatment Upcoming Encounters Date Type Department Care Team (Late st Contact Info) Description 11/26/2024 9:50 AM EDT Anticoagulation Pharmacy, [address] [place] [address] [place] [address] 04/25/2025 10:00 AM EDT Office Visit Cardiology [address] [place] [address] Jamia Abebe PA-C [address] [place] [address] 04/29/2025 10:00 AM EDT Office Visit Family Medicine [address] [place] [phone] Patrick Crawley MD [address] [place] [address] [place] [phone] Scheduled Referrals Name Type Priority Associated Diagnoses Order Schedule CARDIOVASCULAR SURGERY REFERRAL OP Referral Within 10 days (routine) Severe mitral regurgitation Severe tricuspid regurgitation CAD (coronary artery disease) Ordered: 11/02/2024 Health Maintenance Due Date Last Done Comments Alpha-1 Antitrypsin 1962 Zoster Vaccines (1 of 2) 1994 DTap/Tdap Vaccines (1 - Tdap) 12/23/1999 12/22/1999 Adult Wellness Visit 2010 COVID-19 Vaccine ( season) 2024 07/25/2023, 01/18/2022, 07/31/2021, Additional history exists Albumin/Creatinine Ratio 07/20/2025 07/20/2022, 1203/2021 Depression Screening 09/06/2025 09/06/2024 GFR 10/10/2025 10/10/2024, 12/02/2024, 01/24/2024, Additional history exists O2 ASSESSMENT COMPLETED [...] on patient's age to complete this topic Meningitis B Vaccine (Bexsero/Trumemba) Aged Out No longer eligible based on patient's age to complete this topic documented as of this encounter Medical Devices Implanted Type Area Firmware Manager Device Identifier Shelf Expiration Date Model / Serial / Lot Cath Thermodilution 6fr - [id number] Implanted:Qty: 1 on 10/10/2024 by Issa Roman MD [place] [facility] [place] [employer] ANDREA [id number] 03/20/2026 [id number] / / [id number] documented as of this encounter Visit Diagnoses Diagnosis Severe mitral regurgitation- Primary Mitral valve disorders Severe tricuspid regurgitation Diseases of tricuspid valve CAD (coronary artery disease) Coronary atherosclerosis of unspecified type of vessel, chitimacha or graft documented in this encounter Care Teams Employment Attorney Relationship Specialty Start Date End Date Patrick Crawley MD [address] [place] [address] [place] [phone] PCP - General Family Medicine 01/24/24 documented as of this encounter"
--- OUTSIDE RECORDS SUMMARY | 2024-11-17 12:19 | External Medical Summary ---
Author Name Unknown Address Unknown Organization : Laboratory Report Ordering Provider Test Date Status DOROTA HERNANDEZ 10/10/2024 10:56:00 Final Observation Date Value Abnormality Reference (Units) Status Blood draw [PhenX] 10/10/2024 10:56:00 Left Ventricle Final Hemoglobin [Mass/volume] in Blood by Oximetry 10/10/2024 10:56:00 14.4 14.0-16.8 (g/dL) Final Oxyhemoglobin, Fractional, POC (Oximeter) 10/10/2024 10:56:00 84.5 Below low normal 92.0-100.0 (%) Final Oxygen content, POC (Oximeter) 10/10/2024 10:56:00 16.9 1.1-20.9 (mL/dL) Final Performing Location
--- OUTSIDE RECORDS SUMMARY | 2024-11-17 12:19 | External Medical Summary | Summary of Care ---
Author Name Unknown Organization [facility] Address [address] [place] [address] Phone [phone] Care Team Providers Care Facilities Operations Technician Name Role Phone Patrick Crawley MD Primary Care Provide r Reason for Referral * Precert (Diagnostic Medical) (Within 10 days (routine)) - Authorized Specialty Diagnoses / Procedures Referred By Yosvany silva Referred To Contact Cardiac Studies Diagnoses Mitral regurgitation Tricuspid valve regurgitation Procedures TRANSESOPHAGEAL ECHO (COMPLETE) Cardiology [facility] [address] [place] [address] Phone: tel: fax: Referral ID Status Reason Start Date Expiration Date V isits Requested Visits Authorized [id number] Authorized Precert 10/04/[phone] Reason for Visit * Auth/Cert Specialty Diagnoses / Procedures Referred By Yosvany silva Referred To Contact Diagnoses Mitral regurgitation Tricuspid regurgitation Mitral regurgitation [I34.0] Tricuspid regurgitation [I07.1] Procedures CORONARY ANGIOGRAPHY W/RIGHT+LEFT CATH CORONARY ANGIOGRAPHY W/RIGHT+LEFT CATH Issa Roman MD [address] [place] [address] Phone: tel: fax: [facility]S Waiting [facility], Cardiac Recovery Suite Waiting Unit, [address] [place] [address] Phone: tel: Referral ID Status Reason Start Date Expiration Date Visits Re quested Visits Authorized [id number] [phone] Encounter Details Date Type Department Care Team (Latest Contact Info) Description 10/10/2024 7:41 AM EST - 10/10/2024 11:59 PM EST Hospital Encounter Cardiac Studies Hosp [address] [phone] Discharge Disposition: Home - Self Care Allergies Active Allergy Reactions Criticality Noted Date Comments Atenolol Hypertension 06/19/2015 Food (See Comments) 10/19/2011 Chocolate,strawberry Other Allergy (See Comments) 10/19/2011 environmental Petrolatum 10/19/2011 Redness and itchiness documented as of this encounter (statuses as of 10/11/2024) Medications CLOBETASOL PROPIONATE 0.05 % EX OINTIndications:D [...] (Coumadin)Indicat ions:Chronic atrial fibrillation (HCC),Anticoagula tion management encounter,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 TAKE 1 TABLET ALL OTHER DAYS OR DIRECTED BY ANTICOAGULATION CLINIC 80 Tablet 3 5 11:19 AM EST 10/08/19 25 Active documented as of this encounter (statuses as of 10/11/2024) Active Problems Problem Noted Date Diagnosed Date S/P coronary angiogram 10/10/2024 Overview (10/10/2024): Coronary disease - hemodynamically insignificant -Distal LMCA 20-30% stenosis -Proximal and mid LAD is heavily calcified -Mid LAD has 3 sequential lesions with 50-60% eccentric stenoses that are proximal and distal to a large septal clock repair technician -1st diagonal branch has 30% stenosis at [...] = 6.1 Noel units MAP = 70 HEALTH INFORMATICS INSTRUCTOR = 0.7 | HYUN = 6.3 [place] [...] as of this encounter (statuses as of 10/11/2024) Resolved Problems Problem Noted Date Diagnosed Date [...] as of this encounter (statuses as of 10/11/2024) Immunizations Name Administration Dates Next Due COVID-19 mRNA, LNP-s, No Pre serve, 2-Dose Series (Moderna) 12/31/2020,11/27/2020 COVID-19, MRNA-LNP, PF, 30 M CG/0.3 mL, 12 YRS AND ABOVE, IM ([facility]) 07/25/2023 COVID-19, mRNA, LNP-s, PF, B ooster, [...] 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 VSS on room air. LAINA probe #[id number] was used for the procedure. Report called to CRS and pt to be transported via litter with nurse escort to CS at this time. * Elisha Coto RN - 10/10/2024 9:36 AM EST The LAINA probe was removed without difficulty or complications. VSS. * Elisha Coto RN - 10/10/2024 9:14 AM EST The LAINA probe was inserted without difficulty. VSS. * Elisha Coto RN - 10/10/2024 8:42 AM EST The patient arrived to the echo lab. The patient was identified, the procedure and risks were explained. documented in this encounter Plan of Treatment Upcoming Encounters Date Type Department Care Team (Late st Contact Info) Description 10/24/2024 10:00 AM EST Anticoagulation Pharmacy, [address] [place] [phone] [place] [phone] 04/25/2025 10:00 AM EDT Office Visit Cardiology [address] [place] [address] Jamia Abebe PA-C [address] [place] [phone] 04/29/2025 10:00 AM EDT Office Visit Family Medicine [address] [place] [phone] Patrick Crawley MD [address] [place] [address] [place] [phone] Health Maintenance Due Date Last Done Comments [...] this encounter Medical Devices Implanted Type Area Chair Spring Assembler Device Identifier Shelf Expiration Date Model / Serial / Lot Cath Thermodilution 6fr - [id number] Implanted:Qty: 1 on 10/10/2024 by Issa Roman MD at [facility] [place] [employer] [id number] 03/20/2026 [id number] / / [id number] documented as of this encounter Procedures Procedure Name Priority Date/Time Associated Diagnosis Comments TRANSESOPHAGEAL ECHO (COMPLETE) Routine 10/10/2024 9:52 AM EST Mitral regurgitation Tricuspid valve regurgitation documented in this encounter Results * TRANSESOPHAGEAL ECHO (COMPLETE) (10/10/2024 9:52 AM EST) LEFT VENTRICULAR EJECTION FRACTION 55 % [facility] CARD[facility] 10/10/2024 8:36 AM EST Tom Hernandez MD ECHOCARDIOLOGY Final Result [facility] C[facility] documented in this encounter Visit Diagnoses Diagnosis Chronic atrial fibrillation (HCC)- Primary Atrial fibrillation Mitral regurgitation Mitral valve disorders Tricuspid valve regurgitation Diseases of tricuspid valve documented in this encounter Administered Medications Inactive Administered Medications - up to 3 most recent administrations Medication Order MAR Action Action Date Dose Rate Site benzocaine (topical) (Hurricaine) 20 % spray 2 [place] 2 [place], Topical, PRN For Transesophageal Study Only, Intra-Op, Starting on Tue10/10/24 at 0837, Until Tue10/10/24 at 1036, For 2 hours, For Transesophageal Study Only, Intra-Op, Cardiac Studies_HODHOVIndications:Mitral regurgitation,Tricuspid valve regurgitation,Chronic atrial fibrillation (HCC) Given 10/10/2024 9:06 AM EST 1 Each fentaNYL (PF) inj ONCE PRN NARRATOR, Starting on Tue10/10/24 at 0909, Until Tue10/10/24 at 0920 Given 10/10/2024 9:20 AM EST 25 mcg Given 10/10/2024 9:12 AM EST 25 mcg Given 10/10/2024 9:09 AM EST 50 mcg midazolam (Versed) 2 MG/2ML inj ONCE PRN NARRATOR, Starting on Tue10/10/24 at 0909, Until Tue10/10/24 at 0912 Given 10/10/2024 9:12 AM EST 1 mg Given 10/10/2024 9:09 AM EST 1 mg documented in this encounter Care Teams Facilities Operations Technician Relationship Specialty Start Date End Date Patrick Crawley MD [address] [place] [address] [place] [phone] PCP - General Family Medicine 01/24/24 documented as of this encounter"
--- OUTSIDE RECORDS SUMMARY | 2024-11-17 12:19 | External Medical Summary | Summary of Care ---
Author Name Unknown Organization [facility] Address [address] [place] [address] Phone [phone] Care Team Providers Care Fishing Hand Name Role Phone Patrick Crawley MD Primary Care Provide r Reason for Visit * Reason Onset Date Comments Referral 11/07/2024 Encounter Details Date Type Department Care Team (Late st Contact Info) Description 11/07/2024 New Patient Triage (3D MODELER USE ONLY) Cardiothoracic Surg [facility] [address] [place] [address] Bing Mackenzie, office chair assembler Allergies Active Allergy Reactions Criticality Noted Date Comments Atenolol Hypertension 06/19/2015 Food (See Comments) 10/19/2011 Chocolate,strawberry Other Allergy (See Comments) 10/19/2011 environmental Petrolatum 10/19/2011 Redness and itchiness documented as of this encounter (statuses as of 11/08/2024) Medications CLOBETASOL PROPIONATE 0.05 % EX OINTIndications:D [...] c aortic valve insufficiency,ILD (interstitial lung disease) ([facility]) Inhale 2 Puffs by mouth every 4 [...] (Coumadin)Indicat ions:Chronic atrial fibrillation (HCC),Anticoagula tion management encounter,intermission coordinator current use of anticoagulant therapy TAKE ONE-HALF TABLET ON MONDAYS, WEDNESDAYS, AND FRIDAYS. TAKE 1 TABLET ALL OTHER DAYS OR DIRECTED BY ANTICOAGULATION CLINIC 80 Tablet 3 5 11:19 AM EST 10/08/19 25 Active documented as of this encounter (statuses as of 11/08/2024) Active Problems Problem Noted Date Diagnosed Date S/P coronary angiogram 10/10/2024 Overview (10/10/2024): Coronary disease - hemodynamically insignificant -Distal LMCA 20-30% stenosis -Proximal and mid LAD is heavily calcified -Mid LAD has 3 sequential lesions with 50-60% eccentric stenoses that are proximal and distal to a large septal documentation supervisor -1st diagonal branch has 30% stenosis at [...] = 6.1 Noel units MAP = 70 ANIMAL CYTOLOGIST = 0.7 | HYUN = 6.3 [place] [...] as of this encounter (statuses as of 11/08/2024) Resolved Problems Problem Noted Date Diagnosed Date [...] as of this encounter (statuses as of 11/08/2024) Immunizations Name Administration Dates Next Due COVID-19 mRNA, LNP-s, No Pre serve, 2-Dose Series (Moderna) 12/31/2020,11/27/2020 COVID-19, MRNA-LNP, PF, 30 M CG/0.3 mL, 12 YRS AND ABOVE, IM 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 No t on file documented as of this encounter Progress Notes * Aaron Packer PA-C - 11/08/2024 8:00 AM EST Does patient need to be seen?: Yes Modality: Patient preference Urgency: Within 30 days (routine) Discussed care plan with patient or proxy?: Yes Rowena Mackenzie Communicated with patient on Date (mm/dd/yyyy): 11/07/2024 at Time ([facility]): [phone] * Bing Mackenzie RN - 11/07/2024 3:54 PM EST New Patient Triage What is the diagnosis/reason for referral?: Severe MR, Severe TR, CAD Enter order ID here: [id number] Specialty specific documentation: Cardiac and Thoracic Surgery Cath 10/10/2024: Additional Findings: Coronary disease - hemodynamically insignificant -Distal LMCA 20-30% stenosis -Proximal and mid LAD is heavily calcified -Mid LAD has 3 sequential lesions with 50-60% eccentric stenoses that are proximal and distal to a large septal documentation supervisor -1st diagonal branch has 30% stenosis at the ostium -Proximal ramus intermedius has mild luminal irregularities -Ostial LCX has 30-40% stenosis followed by mild diffuse disease -Ostial RCA 40% stenosis -Proximal RCA 30% stenosis -Distal RCA 30% stenosis -Acute marginal is a small vessel with 90% stenosis at the ostium -LVEDP 6 mmHg Right Heart Catheterization on room air: RA = 7 mmHg | RV = 53/6 mmHg | PA = 63/19 (36) mmHg | PW = 9 mmHg | TPG = 27 mmHg CO (Indirect Lyn) = 4.42 L/min, CI = 2.28 L/min/m2 PVR = 6.1 Noel units MAP = 70 ANIMAL CYTOLOGIST = 0.7 | HYUN = 6.3 PA sat: 52% AO sat: 85% LAINA 10/10/2024: Interpretation Summary The examination is adequate to evaluate the referral indication. The qualitative LV ejection fraction is 55-59% (normal). No LV segmental wall motion abnormalities. The right ventricular cavity is severely dilated. The right ventricular systolic function is moderately reduced. Moderate aortic valve regurgitation is present. Severe mitral regurgitation is present at least partially secondary to flail A2 with prolapsed A3. Severe tricuspid regurgitation is present. The aortic root is mildly enlarged. Patient can be scheduled with any surgeon in next available new patient slot. Discussed care plan with patient or proxy?: Yes Patient accepted an appointment 11/21/2024 at 9:[address] Gomes. Communicated with patient on Date (mm/dd/yyyy): 11/07/2024 at Time ([facility]): 2351 Bing Mackenzie RN 11/07/2024 3:56 PM documented in this encounter Plan of Treatment Upcoming Encounters Date Type Department Care Team (Late st Contact Info) Description 11/21/2024 9:00 AM EDT Office Visit Cardiothoracic Surg [facility] [place] [address] [place] [address] Lincoln Gomes MD [address] [facility] [place] [address] 11/26/2024 9:50 AM EDT Anticoagulation Pharmacy, [address] [place] [address] [place] [address] 04/29/2025 10:00 AM EDT Office Visit Family Medicine [address] [place] [phone] Patrick Crawley MD [address] [place] [address] [place] [phone] 05/09/2025 10:00 AM EDT Office Visit Cardiology [address] [place] [address] Jamia Abebe, CECILE [address] [place] [address] Health Maintenance Due Date Last Done Comments [...] this encounter Medical Devices Implanted Type Area E M Assembler Device Identifier Shelf Expiration Date Model / Serial / Lot Cath Thermodilution 6fr - [id number] Implanted:Qty: 1 on 10/10/2024 [place]a Roman [place] [facility] [place] [employer] ANDREA [id number] 03/20/2026 [id number] / / [id number] documented as of this encounter Care Teams Fishing Hand Relationship Specialty Start Date End Date Patrick Crawley MD [address] [place] [address] [place] [phone] PCP - General Family Medicine 01/24/24 documented as of this encounter"
--- OUTSIDE RECORDS SUMMARY | 2024-11-17 12:19 | External Medical Summary | Summary of Care ---
Author Name Unknown Organization [facility] Address [address] [place] [address] Phone [phone] Care Team Providers Care Hospitality Internship Name Role Phone Patrick Crawley MD Primary Care Provide r Reason for Referral * Evaluate & Treat - Unlimited Visits (Within 30 days (routine)) - Authorized Specialty Diagnoses / Procedures Referred By Yosvany silva Referred To Contact Physical Therapy / Physical Medicine And Rehab Diagnoses Sciatica of left side Hip pain, left Patrick Crawley MD [address] [place] [address] [place] [phone] Phone: tel: fax: Referral ID Status Reason Start Date Expiration Date Visits Requested Visits Authorized [id number] Authorized Specialty Services Required 11/14/[phone] Question Answer Referral Priority Within 30 days (routine) Where should this appointment be scheduled? [facility] Reason for Visit * Reason Comments Acute L hip pain Encounter Details Date Type Department Care Team (Late st Contact Info) Description 11/14/2024 10:00 AM EST Office Visit Family Medicine [address] [place] [phone] Patrick Crawley MD [address] [place] [address] [place] [phone] Hip pain, left*; Sciatica of left side Allergies Active Allergy Reactions Criticality Noted Date Comments Atenolol Hypertension 06/19/2015 Food (See Comments) 10/19/2011 Chocolate,strawberry Other Allergy (See Comments) 10/19/2011 environmental Petrolatum 10/19/2011 Redness and itchiness documented as of this encounter (statuses as of 11/14/2024) Medications CLOBETASOL PROPIONATE 0.05 % EX OINTIndications:D [...] c aortic valve insufficiency,ILD (interstitial lung disease) ([facility]) Inhale 2 Puffs by mouth every 4 [...] (Coumadin)Indicat ions:Chronic atrial fibrillation (HCC),Anticoagula tion management encounter,longterm current use of anticoagulant therapy TAKE ONE-HALF TABLET ON MONDAYS, WEDNESDAYS, AND FRIDAYS. TAKE 1 TABLET ALL OTHER DAYS OR DIRECTED BY ANTICOAGULATION CLINIC 80 Tablet 3 5 11:19 AM EST 10/08/19 25 Active predniSONE 10 MG Oral Tablet (Deltasone)Indica tions:Sciatica of left side,Hip pain, left Take 5 tabs for 2 days, 4 tabs for 2 days, 3 tabs for 2 days, 2 tabs for 2 days 1 tab for 2 days 30 Tablet 11/15/19 25 Active documented as of this encounter (statuses as of 11/14/2024) Active Problems Problem Noted Date Diagnosed Date S/P coronary angiogram 10/10/2024 Overview (10/10/2024): Coronary disease - hemodynamically insignificant -Distal LMCA 20-30% stenosis -Proximal and mid LAD is heavily calcified -Mid LAD has 3 sequential lesions with 50-60% eccentric stenoses that are proximal and distal to a large septal power cleaner operator -1st diagonal branch has 30% stenosis [...] = 6.1 Noel units MAP = 70 DIE TECHNICIAN = 0.7 | HYUN = 6.3 PA [...] as of this encounter (statuses as of 11/14/2024) Resolved Problems Problem Noted Date Diagnosed Date [...] as of this encounter (statuses as of 11/14/2024) Immunizations Name Administration Dates Next Due COVID-19 [...] 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 No t on file documented as of this encounter Last Filed Vital Signs Vital Sign Reading Time Taken Comments Blood Pressure 110/57 11/14/2024 10:01 AM EST Pulse 73 11/14/2024 10:01 AM EST Temperature 36 C (96.8 F) 11/14/2024 10:01 AM EST Respiratory Rate - - Oxygen Saturation 99% 11/14/2024 10:01 AM EST Inhaled Oxygen Concentration - - Weight 78.7 kg (173 lb 9.6 oz) 11/14/2024 10:01 AM EST Height - - Body Mass Index 25.64 10/10/2024 7:15 AM EST documented in this encounter Progress Notes * Patrick Crawley MD - 11/14/2024 10:03 AM EST Subjective: HPI: Alberto Andre is a 79 year old male with hx of afib on coumadin, moderate aortic valve regurgitation, severe tricuspid valve regurgitation, HTN, COPD, Rosacea, hx of Kidney stones seen for L hip/gluteal pain - started 1 week - denied any trauma - constant - worse with walking - denied any weakness Patient Active Problem List Diagnosis Edema Rosacea Primary hypertension Aortic regurgitation Chronic atrial fibrillation (HCC) Mitral regurgitation Tricuspid valve regurgitation Pulmonary hypertension (HCC) History of nonmelanoma skin cancer Former smoker Pulmonary nodules Gastro-esophageal reflux disease without esophagitis Chronic obstructive pulmonary disease (HCC) S/P coronary angiogram S/p percutaneous right heart catheterization Current Outpatient Medications Medication Sig Dispense Refill CLOBETASOL PROPIONATE 0.05 % EX OINT Apply to affected area twice daily as needed 60 g 5 METROCREAM 0.75 % EX CREA Apply to face twice daily 45 g 5 TRIAMCINOLONE ACETONIDE 0.1 % EX OINT APPLY TO AFFECTED AREA TWICE DAILY as needed for flares 454 g1 TRETINOIN 0.025 % EX CREA Apply to face every night 45 g 5 Mometasone Furoate 0.1 % cream Apply to affected areas twice daily as needed 45 g 5 Multiple Vitamins-Minerals (MULTIVITAMIN ADULT) TABS Take by mouth. Zinc 50 MG Oral Tablet Take 1 Tablet by mouth in the morning. Selenium 50 MCG Oral Tablet Take by mouth daily. Apple Cider Vinegar 188 MG Oral Capsule Take by mouth. Vitamin D3 10 MCG (400 UNIT) Oral Tablet Chewable Take by mouth. Calcium 600 MG Oral Tablet Take 1 Tablet by mouth in the morning and 1 Tablet at noon and 1 Tablet in the evening. Take with meals. Vitamin C & D3/Corin Hips 500-1000-20 MG-UNIT-MG Oral Capsule (Vit C-Tmewwjoloslxrli-Enyr Hip) Take by mouth. Glucosamine Sulfate 1000 MG Oral Tablet Take by mouth. Hydrocortisone 2.5 % External Cream Mix 60 gm with 180 gm Eucerin, use topically 3 times a day as needed. 240 g 5 Benzonatate 100 MG Oral Capsule Take 1 Capsule by mouth 3 times a day as needed for Cough. 30 Capsule 1 Albuterol Sulfate HFA 108 (90 Base) MCG/ACT Inhalation Aerosol Solution Inhale 2 Puffs by mouth every 4 hours as needed for Wheezing or Dyspnea. 18 g 2 Spironolactone 25 MG Oral Tablet (Aldactone) TAKE ONE-HALF TABLET BY MOUTH EVERY DAY 45 Tablet 3 Torsemide 20 MG Oral Tablet (Demadex) TAKE ONE TABLET BY MOUTH EVERY MORNING 90 Tablet 3 Omeprazole 20 MG Oral Capsule Delayed Release (PriLOSEC) TAKE ONE CAPSULE BY MOUTH EVERY DAY 90 Capsule 3 Lisinopril 40 MG Oral Tablet TAKE ONE TABLET BY MOUTH EVERY DAY IN THE MORNING 90 Tablet 1 Warfarin Sodium 5 MG Oral Tablet (Coumadin) TAKE ONE-HALF TABLET ON MONDAYS, WEDNESDAYS, AND FRIDAYS. TAKE 1 TABLET ALL OTHER DAYS OR DIRECTED BY ANTICOAGULATION CLINIC 80 Tablet 3 predniSONE 10 MG Oral Tablet (Deltasone) Take 5 tabs for 2 days, 4 tabs for 2 days, 3 tabs for 2 days, 2 tabs for 2 days 1 tab for 2 days 30 Tablet 0 No current facility-administered medications for this visit. Past Medical History: Diagnosis Date Chronic atrial fibrillation (HCC) CKD (chronic kidney disease), stage II 08/18/2021 EGFR 70 Former smoker History of nonmelanoma skin cancer Hypertension, goal below 140/90 Interstitial lung disease (HCC) Localized edema Nonrheumatic mitral valve regurgitation Nonrheumatic tricuspid valve regurgitation Other atopic dermatitis Other atopic dermatitis and related conditions ears chronic recurrent Pes planus of both feet Pilonidal cyst without abscess 09/10/1999 Pulmonary hypertension (HCC) Pulmonary nodules Rosacea Past Surgical History: Procedure Laterality Date CORONARY ANGIOGRAPHY W/RIGHT+LEFT CATH Right 10/10/2024 CORONARY ANGIOGRAPHY W/RIGHT+LEFT CATH performed [place] Roman [place] [facility]/REMOVE OBJECT, SIMPLE Right 03/30/2022 right ureteral stone LASERING OF SECONDARY CATARACT 03/12/2001 OS REMOVE CATARACT, INSERT LENS PROSTH 09/12/1995 bilateral REMOVE PILONIDAL CYST, SIMPLE 09/12/1998 excised in or pah by REMOVE TONSILS & ADENOIDS, UNDER 12 Tonsillectomy/Adenoids,<12 Y/O REPAIR INITIAL INGUINAL HERNIA REDUCIBLE AGE 5 OR MORE 09/12/1992 Inguinal Hernia Repair,5+Y/O,Reducibl Review of patient's allergies indicates: Allergen Reactions Atenolol Hypertension Food (See Comments) Chocolate,strawberry Other Allergy (See Comments) environmental Vaseline [Petrolatum] Redness and itchiness Family History Problem Relation Name Age of Onset Cancer Mother Lung cancer...nonsmoker Heart Disorder Grandmother (Maternal) Heart Disorder Grandfather (Maternal) Diabetes Grandmother (Paternal) Social History Tobacco Use Smoking status: Former Current packs/day: 0.00 Average packs/day: 0.8 packs/day for 40.0 years (30.0 ttl pk-yrs) Types: Cigars, Cigarettes Start date: 10/11/1974 Quit date: 10/11/2014 Years since quittin.1 Smokeless tobacco: Never Substance Use Topics Alcohol use: No Vaping/E-Cigarette Use Vaping/E-Cigarette Substances Vaping/E-Cigarette Devices ROS: -Per HPI OBJECTIVE: BP 110/57 | Pulse 73 | Temp 96.8 F (36 C) | Wt 173 lb 9.6 oz (78.7 kg) | SpO2 99% | BMI 25.64 kg/m | BSA 1.96 m PHYSICAL EXAM: Vitals are reviewed General:. NAD, well developed HEENT:. Normal Conjunctiva, EOMI MSK: TTP of the L mid gluteal area, no TTP of the L spine, decreased ROM of the L hip due to pain Psych:. AAOx3, normal affect ASSESSMENT/PLAN: Warm compress AM Topical pain reliever Hip pain, left (Primary) - predniSONE 10 MG Oral Tablet (Deltasone); Take 5 tabs for 2 days, 4 tabs for 2 days, 3 tabs for 2days, 2 tabs for 2 days 1 tab for 2 days - PHYSICAL THERAPY REFERRAL OP Sciatica of left side - predniSONE 10 MG Oral Tablet (Deltasone); Take 5 tabs for 2 days, 4 tabs for 2 days, 3 tabs for 2days, 2 tabs for 2 days 1 tab for 2 days - PHYSICAL THERAPY REFERRAL OP Patrick Crawley MD Family medicine, [address] [phone] documented in this encounter Nursing Notes * Radha Manzano, DETASSELING CREW SUPERVISOR - 11/14/2024 9:58 AM EST He is here for left hip pain that started last . He didn't have any falls or injuries. Seems to have come from no where. Pain is in the buttock area. documented in this encounter Plan of Treatment Upcoming Encounters Date Type Department Care Team (Late st Contact Info) Description 11/21/2024 9:00 AM EDT Office Visit Cardiothoracic Surg [facility] [place] [address] [place] [address] Lincoln Gomes MD [address] [place] [address] 11/26/2024 9:50 AM EDT Anticoagulation Pharmacy, [address] [place] [phone] [place] [phone] 04/29/2025 10:00 AM EDT Office Visit Family Medicine [address] [place] [phone] Patrick Crawley MD [address] [place] [address] [place] [phone] 05/09/2025 10:00 AM EDT Office Visit Cardiology [address] [place] [address] Jamia Abebe PA-C [address] [place] [address] Scheduled Referrals Name Type Priority Associated Diagnoses Orde r Schedule PHYSICAL THERAPY REFERRAL OP Referral Within 30 days (routine) Sciatica of left side Hip pain, left Ordered: 11/14/2024 Health Maintenance Due Date Last Done Comments [...] ASSESSMENT COMPLETED IN PAST YEAR FOR COPD 11/14/2025 11/14/2024 Pneumococcal Vaccine: 50+ Years Completed 08/07/2018, 07/27/2011 [...] encounter Medical Devices Implanted Type Area Manager Plan Device Identifier Shelf Expiration Date Model / Serial / Lot Cath Thermodilution 6fr - [id number] Implanted:Qty: 1 on 10/10/2024 by Issa Roman [place] [facility] [employer] [id number] 03/20/2026 [id number] / / [id number] documented as of this encounter Visit Diagnoses Diagnosis Hip pain, left- Primary Pain in joint, pelvic region and thigh Sciatica of left side Sciatica documented in this encounter Care Teams Hospitality Internship Relationship Specialty Start Date End Date Patrick Crawley MD [address] [place] [address] [place] [phone] PCP - General Family Medicine 01/24/24 documented as of this encounter"
--- OUTSIDE RECORDS SUMMARY | 2024-11-17 12:19 | External Medical Summary | Summary of Care ---
Author Name Unknown Organization [facility] Address [address] [facility] [place] [address] Phone [phone] Care Team Providers Care Quail Farmer Name Role Phone Patrick Crawley MD Primary Care Provide r Reason for Visit * Reason Comments Dosage Adjustment Via Phone (anticoag Cl inic) Encounter Details Date Type Department Care Team (Latest Contact Info) Description 10/26/2024 6:00 AM EST Anticoagulation Pharmacy, [address] [place] [phone] [place] [phone] Anticoagulation management encounter*; Chronic atrial fibrillation (HCC) Allergies Active Allergy Reactions Criticality Noted Date Comments Atenolol Hypertension 06/19/2015 Food (See Comments) 10/19/2011 Chocolate,strawberry Other Allergy (See Comments) 10/19/2011 environmental Petrolatum 10/19/2011 Redness and itchiness documented as of this encounter (statuses as of 10/26/2024) Medications CLOBETASOL PROPIONATE 0.05 % EX OINTIndications:D [...] (Coumadin)Indicat ions:Chronic atrial fibrillation (HCC),Anticoagula tion management encounter,terminal 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 TAKE 1 TABLET ALL OTHER DAYS OR DIRECTED BY ANTICOAGULATION CLINIC 80 Tablet 3 5 11:19 AM EST 10/08/19 25 Active documented as of this encounter (statuses as of 10/26/2024) Active Problems Problem Noted Date Diagnosed Date S/P coronary angiogram 10/10/2024 Overview (10/10/2024): Coronary disease - hemodynamically insignificant -Distal LMCA 20-30% stenosis -Proximal and mid LAD is heavily calcified -Mid LAD has 3 sequential lesions with 50-60% eccentric stenoses that are proximal and distal to a large septal motor transport inspector -1st diagonal branch has 30% stenosis at [...] = 6.1 Noel units MAP = 70 BENCH EXAMINER = 0.7 | HYUN = 6.3 PA [...] as of this encounter (statuses as of 10/26/2024) Resolved Problems Problem Noted Date Diagnosed Date [...] as of this encounter (statuses as of 10/26/2024) Immunizations Name Administration Dates Next Due COVID-19 [...] Industry 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 No t on file documented as of this encounter Progress Notes * Kathy Coffey, [facility] - 10/26/2024 9:09 AM EST Medication Therapy Disease Management - Anticoagulation Patient: Alberto Sky Thai | : 1945 Subjective Contacts Contact Date/Time Type Contact Phone/Fax 10/26/2024 09:12 AM EST Phone (Outgoing) Alberto Andre (Self) [phone] (M) Spoke to Patient Patient-Reported Symptoms: Patient Findings Negatives: Signs/symptoms of thrombosis, Signs/symptoms of bleeding, Change in health, Change in alcohol use, Change in activity, Upcoming invasive procedure, Missed doses, Extra doses, Change in medications, Change in diet/appetite, Bruising Objective Current Warfarin Dose As of 10/26/2024 Warfarin maintenance plan: 2.5 mg (5 mg x 0.5) every Mon, Wed, Fri; 5 mg (5 mg x 1) all other days INR Result As of 10/26/2024 INR goal: 2.0-3.0 INR used for dosin.2 (10/25/2024) Assessment & Plan Warfarin Plan As of 10/26/2024 Full warfarin instructions: 2.5 mg every Mon, Wed, Fri; 5 mg all other days No change documented: Kathy Coffey RPh Next INR check: 11/26/2024 Repeat PT/INR in 4 week(s) Weekly dose: not changed Additional Dosing Information: I spent a total of 10-19 minutes (exact time 10 mins) on the date of service in preparation, delivery, and documentation of the care provided to Alberto Andre excluding any time spent in the performance of separately billed services or time spent by another provider/QHP. Kathy Coffey [facility] Clinical Pharmacist 10/26/2024, 9:09 AM documented in this encounter Plan of Treatment Upcoming Encounters Date Type Department Care Team (Late st Contact Info) Description 11/26/2024 9:50 AM EDT Anticoagulation Pharmacy, [address] [place] [phone] [place] [phone] 04/25/2025 10:00 AM EDT Office Visit Cardiology [address] [place] [address] Jamia Abebe PA-C [address] [place] [address] 04/29/2025 10:00 AM EDT Office Visit Family Medicine [address] [place] [phone] Patrick Crawley MD [address] [place] [address] [place] [phone] Health Maintenance Due Date Last Done Comments [...] this encounter Medical Devices Implanted Type Area Leasing Coordinator Device Identifier Shelf Expiration Date Model / Serial / Lot Cath Thermodilution 6fr - [id number] Implanted:Qty: 1 on 10/10/2024 by Issa Roman MD at [facility] [employer] [id number] 03/20/2026 [id number] / / [id number] documented as of this encounter Visit Diagnoses Diagnosis Anticoagulation management encounter- Primary Encounter for therapeutic drug monitoring Chronic atrial fibrillation (HCC) Atrial fibrillation documented in this encounter Care Teams Quail Farmer Relationship Specialty Start Date End Date Patrick Crawley MD [address] [place] [address] [place] [phone] PCP - General Family Medicine 01/24/24 documented as of this encounter"
--- OUTSIDE RECORDS SUMMARY | 2024-11-17 12:20 | External Medical Summary ---
Author Name Unknown Address Unknown Organization [id number]:[facility] [place] - [address] [place] [address] Laboratory Report Ordering Provider Test Date Status BERNARDO PARIKH 09/06/2024 11:20:07 Venecia l Observation Date Value Abnormality Reference (Units ) Status WBC, Total 09/06/2024 11:20:07 6.62 4.00-10.80 (K/uL) Final RBC 09/06/2024 11:20:07 4.45 4.50-5.25 (M/uL) Final Hemoglobin 09/06/2024 11:20:07 15.0 14.0-16.8 (g/dL) Final HCT 09/06/2024 11:20:07 46.5 40.0-48.4 (%) Final MCV 09/06/2024 11:20:07 104.5 82.0-99.5 (fL) Final MCH 09/06/2024 11:20:07 33.7 27.0-34.0 (pg) Final MCHC 09/06/2024 11:20:07 32.3 32.0-36.0 (g/dL) Final RDW 09/06/2024 11:20:07 14.6 11.5-15.5 (%) Final Platelets 09/06/2024 11:20:07 189 140-400 (K/uL) Final MPV 09/06/2024 11:20:07 9.7 6.6-11.1 (fL) Final Nucleated erythrocytes/100 leukocytes [Ratio] in Blood by Automated count 09/06/2024 11:20:07 0 <=0 (/100 WBCs) Final Performing Location LABORATORY [facility] - [address] [place] [address]
--- OUTSIDE RECORDS SUMMARY | 2024-11-17 12:20 | External Medical Summary | Summary of Care ---
Author Name Unknown Organization [facility] Address [address] [place] [address] Phone [phone] Care Team Providers Care Nursing Information Systems Coordinator Name Role Phone Patrick Crawley MD Primary Care Provide r Reason for Visit * Reason Comments NEW PATIENT F/u per Jamia Abebe - last seen 2020 * Evaluate & Treat - Unlimited Visits (Within 30 days (routine)) - Authorized Specialty Diagnoses / Procedures Referred By Yosvany silva Referred To Contact Cardiovascular Medicine Diagnoses Pulmonary hypertension (HCC) Nonrheumatic mitral valve regurgitation Nonrheumatic aortic valve insufficiency Nonrheumatic tricuspid valve regurgitation Jamia Abebe PA-C [address] [place] [address] Phone: tel: fax: Referral ID Status Reason Start Date Expiration Date Visits Requested Visits Authorized [id number] Authorized Specialty Services Required 05/17/[phone] Encounter Details Date Type Department Care Team (Latest Contact Info) Description 08/29/2024 10:00 AM EST Office Visit Cardiology, [facility] [address] [facility] [place] [id number] Tom Hernandez MD [address] [place] [address] Nonrheumatic mitral valve regurgitation*; Nonrheumatic tricuspid valve regurgitation; Nonrheumatic aortic valve insufficiency Allergies Active Allergy Reactions Criticality Noted Date Comments Atenolol Hypertension 06/19/2015 Food (See Comments) 10/19/2011 Chocolate,strawberry Other Allergy (See Comments) 10/19/2011 environmental Petrolatum 10/19/2011 Redness and itchiness documented as of this encounter (statuses as of 08/29/2024) Medications CLOBETASOL PROPIONATE 0.05 % EX OINTIndications: Dermatitis Apply to affected area twice daily as needed 60 g 5 07/18/20 12 Active METROCREAM 0.75 % EX CREAIndications: Rosacea Apply to face twice daily 45 g 5 07/18/20 12 Active TRIAMCINOLONE ACETONIDE 0.1 % EX OINTIndications: Other atopic dermatitis and related conditions APPLY TO AFFECTED AREA TWICE DAILY as needed for flares 454 g 1 03/23/20 13 Active TRETINOIN 0.025 % EX CREAIndications: Acne Apply to face every night 45 g 5 06/06/20 14 Active Mometasone Furoate 0.1 % creamIndications :Dermatitis Apply to affected areas twice daily as needed 45 g 5 08/26/20 15 Active Multiple Vitamins-Mineral s (MULTIVITAMIN ADULT) TABS Take by mouth. Act maral Zinc 50 MG Oral Tablet Take 1 Tablet by mouth in the morning. Active Selenium 50 MCG Oral Tablet Take by mouth daily. Active Apple Cider Vinegar 188 MG Oral Capsule Take by mouth. Ac tive Vitamin D3 10 MCG (400 UNIT) Oral Tablet Chewable Take by mouth. Activ e Calcium 600 MG Oral Tablet Take 1 Tablet by mouth in the morning and 1 Tablet at noon and 1 Tablet in the evening. Take with meals. Active Vitamin C & D3/Corin Hips 500-1000-20 MG-UNIT-MG Oral Capsule (Vit C-Cholecalcifero l-Corin Hip) Take by mouth. Act maral Glucosamine Sulfate 1000 MG Oral Tablet Take by mouth. Act maral Hydrocortisone 2.5 % External CreamIndications :Rosacea Mix 60 gm with 180 gm Eucerin, use topically 3 times a day as needed. 240 g 5 01/20/20 23 Active Probiotic Acidophilus Oral Tablet Chewable Take by mouth. Active Lisinopril 40 MG Oral TabletIndication s:HTN, goal below 140/90 TAKE ONE TABLET BY MOUTH EVERY DAY IN THE MORNING 90 Tablet 3 4 1:13 PM EDT 09/14/19 24 025 Active Benzonatate 100 MG Oral Capsule Take 1 Capsule by mouth 3 times a day as needed for Cough. 30 Capsule 1 09/14/19 24 Active Additional Information Patient not taking.Reported on 05/17/2024 Warfarin Sodium 5 MG Oral Tablet (Coumadin)Indica tions:Chronic atrial fibrillation (HCC),Anticoagul ation management encounter,stain maker current use of anticoagulant therapy TAKE one-half TABLET ON MONDAYS, WEDNESDAYS, AND FRIDAYS. TAKE 1 TABLET ALL OTHER DAYS OR DIRECTED BY ANTICOAGULATION CLINIC 80 Tablet 3 4 3:31 PM EDT 10/18/19 24 Active Albuterol Sulfate HFA 108 (90 Base) MCG/ACT Inhalation Aerosol SolutionIndicati ons:Pulmonary nodules,Pulmonar y hypertension (HCC),Chronic atrial fibrillation (HCC),Nonrheumat ic aortic valve insufficiency,IL D (interstitial lung disease) ([facility]) Inhale 2 Puffs by mouth every 4 hours as needed for Wheezing or Dyspnea. 18 g 2 01/05/20 24 Active Spironolactone 25 MG Oral Tablet (Aldactone)Indic ations:HTN, goal below 140/90,Localized edema,Nonrheumat ic aortic valve insufficiency,No nrheumatic mitral valve regurgitation TAKE ONE-HALF TABLET BY MOUTH EVERY DAY 45 Tablet 3 4 2:12 PM EDT 04/05/20 24 025 Active Torsemide 20 MG Oral Tablet (Demadex)Indicat ions:HTN, goal below 140/90,Localized edema,Nonrheumat ic aortic valve insufficiency,No nrheumatic mitral valve regurgitation TAKE ONE TABLET BY MOUTH EVERY MORNING 90 Tablet 3 4 2:12 PM EDT 04/05/20 24 025 Active Omeprazole 20 MG Oral Capsule Delayed Release (PriLOSEC) TAKE ONE CAPSULE BY MOUTH EVERY DAY 90 Capsule 3 4 5:10 PM EST 08/15/20 24 025 Active FML 0.1 % OP OINTIndications: Eczematous dermatitis of eyelid Apply to affected areas on eyelids twice daily as needed 1 Tube 5 11/06/20 12 024 Disconti nued(Pat ient preferen ce/disco ntinuati on) urea (CARMOL 40) 40 % creamIndications :Keratoderma Apply to soles and feet every night 85.05 g 5 08/26/20 15 024 Disconti nued(Pat ient preferen ce/disco ntinuati on) documented as of this encounter (statuses as of 08/29/2024) Active Problems Problem Noted Date Diagnosed Date Chronic obstructive pulmonary disease 02/26/2022 Gastro-esophageal reflux disease without esophag itis 08/18/2021 Pulmonary nodules 10/10/2019 ILD (interstitial lung disease) 04/09/2019 Former smoker 04/09/2019 History of nonmelanoma skin cancer 10/27/2017 Overview (10/27/2017): SCC left forearm 2015 Tricuspid valve regurgitation 02/08/2017 Pulmonary hypertension 02/08/2017 Chronic atrial fibrillation 08/03/2016 Mitral regurgitation 08/03/2016 Primary hypertension 05/04/2016 Aortic regurgitation 05/04/2016 Rosacea 01/16/2013 Edema 12/25/1998 documented as of this encounter (statuses as of 08/29/2024) Resolved Problems Problem Noted Date Diagnosed Date Resolved Date 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 02/24/2022 01/24/2024 Nontoxic multinodular goiter 08/18/2021 01/24/2024 CKD (chronic kidney disease), stage II 08/18/2021 01/24/2024 Overview (08/19/2021): EGFR 70 Screening cholesterol level 06/05/2018 04/16/2021 Dermatitis 01/16/2013 10/27/2017 Neoplasm of uncertain behavior of skin 01/16/2013 10/27/2017 Other atopic dermatitis 01/2021 Overview (07/05/2017): ICD-10 update of inactive term PILONIDAL CYST W-O ABSC 01/2021 documented as of this encounter (statuses as of 08/29/2024) Immunizations Name Administration Dates Next Due COVID-19 [...] 10/11/1974 - 10/11/2014 Cigars Smokeless Tobacco: Never Tobacco Cessation:Counseling Given: Not Answered Alcohol Use Standard Drinks/Week Comments No 0 (1 standard drink = 0.6 oz pur e alcohol) Sex and Gender Information Value Date Recorded Sex Assigned at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 Legal Sex Male 6:13 AM EST Gender Identity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 Sexual Orientation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 Industry Job Start Date 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[employer]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 No t on file documented as of this encounter Last Filed Vital Signs Vital Sign Reading Time Taken Comments Blood Pressure 100/56 08/29/2024 10:48 AM EST Pulse 68 08/29/2024 10:48 AM EST Temperature - - Respiratory Rate 18 08/29/2024 10:48 AM EST Oxygen Saturation - - Inhaled Oxygen Concentration - - Weight 77.7 kg (171 lb 4.8 oz) 08/29/2024 10:48 AM EST Height - - Body Mass Index 25.3 05/30/2024 10:20 AM EDT documented in this encounter Progress Notes * Tom Hernandez MD - 08/29/2024 11:08 AM EST I have reviewed the advanced practitioner's documentation on the date of service referenced in note, and I agree with, and take responsibility for the plan of care. 79 year old male with mitral and tricuspid regurgitation PAF Severe MR, Severe TR, mild AI Fatigue, slowing down Coroanry angiogram, right heart cath and LAINA with structural sustainability engineer to assess feasibility of mitraland tricuspid interventions. Tom Hernandez MD MPH Interventional Cardiology Pager: [phone] 08/29/24 11:21 AM * Jessica Lucio CRNP - 08/29/2024 9:51 AM EST Cardiology Valve Clinic Note 08/29/2024 Primary Credit And Collections Representative: Dr. Gerber/Sourav Abebe PA-C Referred by: Sourav Abebe PA-C 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, TR and Aortic Insufficency Interstitial lung disease Pulmonary HTN HPI: Alberto Andre is a 79 year old male being seen today in valve clinic for evaluation of severe mitral regurgitation and severe Tricuspid regurgitation. Here today accompanied by Patient states that he has been slowing down over the past year, reports that he is gradually "slowing down". Denies any significant change in his breathing. He carries a history of interstitial lungdisease and uses inhalers with control of symptoms. He feels that his chronic back issues slow him more than anything Denies any chest pain, pressure or palpitations, no change in breathing, no edema. No dizziness or lightheadedness. No syncope. Endorses a good appetite Chronic fatigue, takes occasional naps. Patient denies abnormal bleeding. Denies any known complications with anesthesia. Upper and lower dentures, no longer follows with a dentist Patient lives at home with family Denies tobacco, alcohol, and illicit drug use. REVIEW OF SYSTEMS: See HPI for pertinent positives. All others negative other than those noted in the HPI. CONSTITUTIONAL: No change in weight, No weakness, No fatigue and No fevers, No sweats or chills. PULMONARY: No cough, sputum, or hemoptysis, No wheezing, No shortness or breath and No recent change in breathing. CARDIOVASCULAR: No chest pain, No dyspnea on exertion, No edema, No palpitations and No syncope. GASTROINTESTINAL: No abdominal pain, No change in bowel habits, No significant heartburn, No nausea, No vomiting, No diarrhea, No constipation, No blood in stools or black tarry stools. No dysphagia. HEMATOLOGIC: No abnormal bleeding and No bruising. NEUROLOGICAL: Normal balance, No headaches and No weakness. Current Outpatient Medications Medication Sig Dispense Refill [...] D3/Corin Hips 500-1000-20 MG-UNIT-MG Oral Capsule (Vit B-Zjoibvtscvtpcds-Furx Hip) Take by mouth. Glucosamine Sulfate 1000 MG Oral Tablet Take by mouth. Hydrocortisone 2.5 % External Cream Mix 60 gm with 180 gm Eucerin, use topically 3 times a day as needed. 240 g 5 Probiotic Acidophilus Oral Tablet Chewable Take by mouth. Lisinopril 40 MG Oral Tablet TAKE ONE TABLET BY MOUTH EVERY DAY IN THE MORNING 90 Tablet 3 Warfarin Sodium 5 MG Oral Tablet (Coumadin) TAKE one-half TABLET ON MONDAYS, WEDNESDAYS, AND FRIDAYS. TAKE 1 TABLET ALL OTHER DAYS OR DIRECTED BY ANTICOAGULATION CLINIC 80 Tablet 3 Albuterol Sulfate HFA 108 (90 Base) MCG/ACT [...] BY MOUTH EVERY DAY 90 Capsule 3 Benzonatate 100 MG Oral Capsule Take 1 Capsule by mouth 3 times a day as needed for Cough. (Patientnot taking: Reported on 05/17/2024) 30 Capsule 1 No current facility-administered medications for this visit. Review of patient's allergies indicates: Allergen Reactions Atenolol Hypertension Food (See Comments) Chocolate,strawberry Other Allergy (See Comments) environmental Vaseline [Petrolatum] Redness and itchiness Past Medical History: Diagnosis Date Chronic atrial [...] Rosacea Past Surgical History: Procedure Laterality Date CYSTOSCOPY/REMOVE OBJECT, SIMPLE Right 03/30/2022 right ureteral stone LASERING OF SECONDARY CATARACT 03/12/2001 OS REMOVE CATARACT, INSERT LENS PROSTH 09/12/1995 bilateral REMOVE PILONIDAL CYST, SIMPLE 09/12/1998 excised in or pah by REMOVE TONSILS & ADENOIDS, UNDER 12 Tonsillectomy/Adenoids,<12 Y/O REPAIR INITIAL INGUINAL HERNIA REDUCIBLE AGE 5 OR MORE 09/12/1992 Inguinal Hernia Repair,5+Y/O,Reducibl Family History Problem Relation Name Age of Onset Cancer Mother Lung cancer...nonsmoker Heart Disorder Grandmother (Maternal) Heart Disorder Grandfather (Maternal) Diabetes Grandmother (Paternal) Social History Socioeconomic History Marital status: Spouse name: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 Number of children: 2 Years of education: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 Highest education level: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 Occupational History 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 [employer] Tobacco Use Smoking status: Former Current packs/day: 0.00 Average packs/day: 0.8 packs/day for 40.0 years (30.0 ttl pk-yrs) Types: Cigars, Cigarettes Start date: 10/11/1974 Quit date: 10/11/2014 Years since quittin.8 Smokeless tobacco: Never Substance and Sexual Activity Alcohol use: No Drug use: No Sexual activity: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 Other Topics Concern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 Social History Narrative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 Social Needs Financial Resource Strain: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 Food Insecurity: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 Transportation Needs: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 Social Connections: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 Housing Stability: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 PHYSICAL EXAM: BP 100/56 (BP Site: Left Arm, BP Position: Sitting, BP Cuff Size: Regular) | Pulse 68 | Resp 18 | Wt 77.7 kg (171 lb 4.8 oz) | BMI 25.30 kg/m | BSA 1.95 m Wt Readings from Last 3 Encounters: 08/29/24 77.7 kg (171 lb 4.8 oz) 05/30/24 75.8 kg (167 lb) 05/17/24 77.7 kg (171 lb 6.4 oz) General: No acute distress. A+Ox3. HEENT: Normocephalic. Atraumatic. PERRL. EOMI. Conjunctiva and sclera clear. NECK: No carotid bruits. No JVD. Carotid upstrokes are brisk. Heart: RRR. S1 and S2 noted. +2/6 systolic murmur. No rubs or gallops. PMI non displaced. Lungs: Clear to auscultation. No wheezes.No rhonchi. No rales. Abdomen: Normal bowel sounds. Soft. Nontender. No masses or organomegaly. No abdominal bruits. Extremities: No edema. No clubbing or cyanosis. Pulses: radial=2/4, posterior tibial=2/4, dorsalis pedis = 2/4. NEURO: No focal deficits. PSYCH: Appropriate affect and insight. DATA: Labs & Imaging Reviewed Below: Nuclear lexiscan stress test report reviewed dated March 2024: Interpretation Summary Abnormal Lexiscan nuclear myocardial perfusion imaging study demonstrating small, apical infarct with mild tom-infarct ischemia involving the apical anterior wall and apex. Ischemia involves 7% of the total myocardium per quantitative analysis. Gated SPECT images reveals normal myocardial thickening and wall motion. The LV ejection fraction is calculated at 67%. This studyhas what is deemed to be a "significant abnormality" consistent with ACT 112. See additional documentation regarding notification of patient and ordering provider. EKG performed January 2024: Atrial fibrillation with premature ventricular or aberrantly conducted complexes Right bundle branch block Abnormal ECG When compared with ECG of 21-Oct-2022 11:32, No significant change was found EKG performed 10/21/2022: Atrial fibrillation at 91 beats per minute with incomplete right bundle branch block, LVH by voltage criteria. Summary of ttecho performed 04/12/23: There was atrial fibrillation during the examination. The left ventricular cavity size is normal. The LV wall thickness is moderately increased (concentric). The septal motion is abnormal consistent with right ventricular pressure overload. Severe bi atrial enlargement. The right ventricular cavity is severely dilated. There is diffuse right ventricular hypokinesis. There is focal calcification the non coronary cusp of the aortic valve Moderate aortic valve regurgitation is present. Moderate mitral regurgitation is present. Severe tricuspid regurgitation is present. Severe pulmonary hypertension is present. Dilated IVC with reduced collapsability with sniff indicates an elevated right atrial pressure of 15 mmHg. The estimated pulmonary artery systolic pressure is >60 mm Hg. Summary of ttecho 06/15/22 The qualitative LV ejection fraction is 50-54% (normal). The right ventricular cavity is moderately dilated. The right ventricular systolic function is moderately reduced . Severe bi atrial enlargement. Moderate aortic valve regurgitation is present. Moderate mitral regurgitation is present. Severe tricuspid regurgitation is present. The estimated pulmonary artery systolic pressure is 67 mm Hg. Dilated IVC with reduced collapsability with sniff indicates an elevated right atrial pressure of 15 mmHg. Compared to last available study changes are noted as follows: Severe tricuspid regurgitation now present. Echocardiogram 04/11/2024 Interpretation Summary The qualitative LV ejection fraction is 55-59% (normal). The LV wall thickness is moderately increased (concentric). The septal motion is abnormal consistent with right ventricular pressure and volume overload. The right ventricular cavity is severely dilated. The right ventricular systolic function is moderately reduced . There is diffuse right ventricular hypokinesis. Severe biatrial enlargement. There is focal calcification the non coronary cusp of the aortic valve. There is aortic valve sclerosis without stenosis. Severe mitral regurgitation is present. The mitral regurgitation jet is posteriorly directed. Severe tricuspid regurgitation is present. The estimated pulmonary artery systolic pressure is 68mm Hg. Compared to last available study changes are noted as follows: Severe mitral regurgitation now present. This study has what is deemed to be a "significant abnormality" consistent with ACT 112. See additional documentation regarding notification of patient and ordering provider. IMPRESSION/PLAN: Nonrheumatic mitral valve regurgitation (Primary) Nonrheumatic tricuspid valve regurgitation -Symptomatic Mitral and tricuspid regurgitation. -Case reviewed with Dr. Hernandez and further recommendations per his assessment and plan Nonrheumatic aortic valve insufficiency -mild in degree, this will continue to be monitored by routine echocardiogram. Follow-up: Return if symptoms worsen or fail to improve. | Check-out note: Follow up will be arranged pending Testing at [facility] (included cath and LAINA) Patient care was discussed/coordinated with Dr. Hernandez. The patient agrees to the above plan and will call with additional questions or concerns. All questions were answered to the patients satisfaction. ER with all emergencies advised. SAVANNAH Hoyt Cardiology, [address] [address] I spent a total of 50 minutes on the date of service in preparation, delivery, and documentation ofthe care provided to Alberto Andre excluding any time spent in the performance of separately billed services. This chart was completed in part utilizing [employer] Speech Voice Recognition Software. Grammatical errors, random word insertions, prounoun errors, and incomplete sentences are an occasional consequence of this system due to software limitations, ambient noise, and hardware issues. Any formal questions or concerns about the content, text, or information contained within the body of this dictation should be directly addressed to the provider for clarification. documented in this encounter Nursing Notes * Anisa Winter CMA - 08/29/2024 10:46 AM EST Chief Complaint Patient presents with NEW PATIENT F/u per Jamia Abebe - last seen 2020 Examination Room: 11 Name: Alberto Andre Date of : (1945). Reason for Visit: Consult for mixed valvular disease, pulmonary HTN Interim Hospitalization(s): none Problems/Concerns: denies Chest Pain/SOB: denies [facility] Discussed: No [facility] is a way you can talk to your provider online through e-mail. Would you like to sign up? I can activate it for you? ALREADY ACTIVE Patient was instructed to not get up on the exam table until directed and assisted by their provider; patient is to remain seated in the chair/ wheelchair/ exam table for fall prevention and safety reasons. Patient is aware to have assistance to step down off exam table with personnel. Patient voiced full comprehension of instructions. documented in this encounter Plan of Treatment Upcoming Encounters Date Type Department Care Team (Late st Contact Info) Description 08/30/2024 10:30 AM EST Office Visit Cardiology, [facility] [address] [place] [phone] Jordan Gerber DO [address] [place] [phone] 09/06/2024 10:40 AM EST Office Visit Family Medicine [address] [place] [phone] Patrick Crawley MD [address] [place] [address] [place] [phone] 10/08/2024 10:30 AM EST Anticoagulation Pharmacy, [address] [place] [phone] [place] [phone] Health Maintenance Due Date Last Done Comments Depression Screening 1956 Alpha-1 Antitrypsin 1962 Zoster Vaccines (1 of 2) 1994 DTap/Tdap Vaccines (1 - Tdap) 12/23/1999 12/22/1999 Adult Wellness Visit 2010 COVID-19 Vaccine ( season) 2024 07/25/2023, 01/18/2022, 07/31/2021, Additional history exists GFR 01/23/2025 01/24/2024, 07/13, 08/31/2022, Additional history exists O2 ASSESSMENT COMPLETED IN PAST YEAR FOR COPD 01/23/2025 01/24/2024 Albumin/Creatinine Ratio 07/20/2025 07/20/2022, 03/2021 Pneumococcal Vaccine: 65+ Years Completed 08/07/2018, 07/27/2011 Lung Cancer Screening [...] documented as of this encounter Medical Devices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documented as of this encounter Visit Diagnoses Diagnosis Nonrheumatic mitral valve regurgitation- Primary Nonrheumatic tricuspid valve regurgitation Tricuspid valve disorders, specified as nonrheumatic Nonrheumatic aortic valve insufficiency Aortic valve disorders documented in this encounter Care Teams Nursing Information Systems Coordinator Relationship Specialty Start Date End Date Patrick Crawley MD [address] [place] [address] [place] [id number] PCP - General Family Medicine 01/24/24 documented as of this encounter
--- OUTSIDE RECORDS SUMMARY | 2024-11-17 12:20 | External Medical Summary | Summary of Care ---
Author Name Unknown Organization [facility] Address [address] [facility] [place] [address] Phone [phone] Care Team Providers Care Long Term Acute Care Registered Nurse Name Role Phone Patrick Crawley MD Primary Care Provide r Reason for Visit * Reason Comments Dosage Adjustment In Person (Anticoag Cl inic) Encounter Details Date Type Department Care Team (Latest Contact Info) Description 08/27/2024 10:20 AM [facility] Anticoagulation Pharmacy, [address] [place] [phone] [place] [address] Anticoagulation management encounter*; Chronic atrial fibrillation (HCC) Allergies Active Allergy Reactions Criticality Noted Date Comments Atenolol Hypertension 06/19/2015 Food (See Comments) 10/19/2011 Chocolate,strawberry Other Allergy (See Comments) 10/19/2011 environmental Petrolatum 10/19/2011 Redness and itchiness documented as of this encounter (statuses as of 08/27/2024) Medications CLOBETASOL PROPIONATE 0.05 % EX OINTIndications:D ermatitis Apply to affected area twice daily as needed 60 g 5 07/18/20 12 Active FML 0.1 % OP OINTIndications:E czematous dermatitis of eyelid Apply to affected areas on eyelids twice daily as needed 1 Tube 5 07/18/20 12 Active METROCREAM 0.75 % [...] night 45 g 5 06/06/20 14 Active urea (CARMOL 40) 40 % creamIndications: Keratoderma Apply to soles and feet every night 85.05 g 08/26/20 15 Active Additional Information Patient not taking.Reported on 05/17/2024 Mometasone Furoate 0.1 % creamIndications: Dermatitis Apply to affected areas twice daily as needed 45 g 08/26/20 15 Active Multiple Vitamins-Minerals (MULTIVITAMIN ADULT) [...] times a day as needed. 240 g 01/20/20 23 Active Probiotic Acidophilus Oral Tablet Chewable Take by mouth. 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 TAKE one-half [...] 5:10 PM EST 08/15/20 24 025 Active documented as of this encounter (statuses as of 08/27/2024) Active Problems Problem Noted Date Diagnosed Date [...] as of this encounter (statuses as of 08/27/2024) Resolved Problems Problem Noted Date Diagnosed Date [...] as of this encounter (statuses as of 08/27/2024) Immunizations Name Administration Dates Next Due COVID-19 mRNA, LNP-s, No Pre serve, 2-Dose Series (Moderna) 12/31/2020,11/27/2020 COVID-19, MRNA-LNP, PF, 30 M CG/0.3 mL, 12 YRS AND ABOVE, IM (PFIZER-Comirnat) 07/25/2023 COVID-19, mRNA, LNP-s, PF, B ooster, [...] drink = 0.6 oz pur e alcohol) Utilities Answer Date Recorded Do you have trouble paying y our heating, water, or electric bill? (Adult - for ages 18 years and over)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 02/28/2024 Is your family able to pay t he heat, water, or electric bill? (Household - for ages 0-17 years)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 02/28/2024 Does your family have access to good internet? (Household - for ages 0-17 years)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 02/28/2024 Social Connections Answer Date Recorded How often do you feel lonely or isolated from those around you? 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 No t on file documented as of this encounter Progress Notes * Kathy Coffey, [facility] - 08/27/2024 10:09 AM EST Medication Therapy Disease Management - Anticoagulation Patient: Alberto Andre | : 1945 Subjective Patient-Reported Symptoms: Patient Findings Negatives: Signs/symptoms of thrombosis, Signs/symptoms of bleeding, Change in health, Change in alcohol use, Change in activity, Upcoming invasive procedure, Missed doses, Extra doses, Change in medications, Change in diet/appetite, Bruising Objective Current Warfarin Dose As of 08/27/2024 Warfarin maintenance plan: 2.5 mg (5 mg x 0.5) every Mon, Wed, Fri; 5 mg (5 mg x 1) all other days INR Result As of 08/27/2024 INR goal: 2.0-3.0 INR used for dosin.5 (08/27/2024) Assessment & Plan Warfarin Plan As of 08/27/2024 Full warfarin instructions: 2.5 mg every Mon, Wed, Fri; 5 mg all other days No change documented: Kathy Coffey heidi Next INR check: 10/08/2024 Repeat PT/INR in 6 week(s) Weekly dose: not changed Additional Dosing Information: I spent a total of 10-19 minutes (exact time 10 mins) on the date of service in preparation, delivery, and documentation of the care provided to Alberto Andre excluding any time spent in the performance of separately billed services or time spent by another provider/QHP. Kathy Coffey [facility] Clinical Pharmacist 08/27/2024, 10:09 AM documented in this encounter Plan of Treatment Upcoming Encounters Date Type Department Care Team (Late st Contact Info) Description 08/29/2024 10:00 AM EST Office Visit Cardiology, [facility] [address] [place] [address] Tom Hernandez MD [address] [place] [address] 08/30/2024 10:30 AM EST Office Visit Cardiology, [facility] [address] [place] [address] Jordan Gerber DO [address] [facility] [address] 09/06/2024 10:40 AM EST Office Visit Family Medicine [address] [place] [phone] Patrick Crawley MD [address] [place] [address] [place] [phone] 10/08/2024 10:30 AM EST Anticoagulation Pharmacy, [address] [place] [address] [place] [address] Health Maintenance Due Date Last Done Comments Depression Screening 1956 Alpha-1 Antitrypsin 1962 Zoster Vaccines (1 of 2) 1994 DTap/Tdap Vaccines (1 - Tdap) 12/23/1999 12/22/1999 Adult Wellness Visit 2010 COVID-19 Vaccine (6 - season) 2024 07/25/2023, 01/18/2022, 07/31/2021, Additional history [...]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documented as of this encounter Procedures Procedure Name Priority Date/Time Associated Diagnosis Comments INR FINGERSTICK, POINT OF CARE STAT 08/27/2024 10:12 AM EST Chronic atrial fibrillation (HCC) Anticoagulation management encounter documented in this encounter Results * INR FINGERSTICK, POINT OF CARE (08/27/2024 10:12 AM EST) Fingerstick INR 2.5 INR 10:14 AM EST [facility] 55-00 Blood 08/27/2024 10:1 2 AM EST 08/27/2024 10:14 AM EST Narrative [facility] 55-00 - 08/27/2024 10:14 AM EST Therapeutic ranges for non-operative patients: Prophylaxsis/treatment of DVT: (Range:2.0-3.0) Treatment of pulmonary embolism:(Range:2.0-3.0) Prevention of systemic embolism from: -tissue heart valves -acute myocardial infarction -valvular heart disease -atrial fibrillation (Range: 2.0-3.0) Mechanical prosthetic valves: (Range: 2.5-3.5) Kathy Coffey [facility] LAB POINT OF CARE TEST DOCKED DEVICE UNSOLICITED RESULTS Final Result [facility] [address] [place] [address] [place] [phone] documented in this encounter Visit Diagnoses Diagnosis Anticoagulation management encounter- Primary Encounter for therapeutic drug monitoring Chronic atrial fibrillation (HCC) Atrial fibrillation documented in this encounter Care Teams Long Term Acute Care Registered Nurse Relationship Specialty Start Date End Date Patrick Crawley MD [address] [place] [address] [place] [phone] PCP - General Family Medicine 01/24/24 documented as of this encounter"
--- OUTSIDE RECORDS SUMMARY | 2024-11-17 12:20 | External Medical Summary ---
Author Name Unknown Address Unknown Organization : Laboratory Report Ordering Provider Test Date Status DOROTA HERNANDEZ 10/10/2024 10:53:00 Final Observation Date Value Abnormality Reference (Units ) Status Blood draw [PhenX] 10/10/2024 10:53:00 Aorta Final Hemoglobin [Mass/volume] in Blood by Oximetry 10/10/2024 10:53:00 13.3 Below low normal 14.0-16.8 (g/dL) Final Oxyhemoglobin, Fractional, POC (Oximeter) 10/10/2024 10:53:00 84.6 Below low normal 92.0-100.0 (%) Final Oxygen content, POC (Oximeter) 10/10/2024 10:53:00 15.6 1.1-20.9 (mL/dL) Final Performing Location
--- OUTSIDE RECORDS SUMMARY | 2024-11-17 12:20 | External Medical Summary | Summary of Care ---
Author Name Unknown Organization [facility] Address [address] [facility] [place] [address] Phone [phone] Care Team Providers Care [employer] Salesperson Name Role Phone Patrick Crawley MD Primary Care Provide r Reason for Visit * Reason Comments Dosage Adjustment In Person (Anticoag Cl inic) Encounter Details Date Type Department Care Team (Latest Contact Info) Description 10/08/2024 10:30 AM [facility] Anticoagulation Pharmacy, [address] [place] [phone] [place] [address] Anticoagulation management encounter*; Chronic atrial fibrillation (HCC) Allergies Active Allergy Reactions Criticality Noted Date Comments Atenolol Hypertension 06/19/2015 Food (See Comments) 10/19/2011 Chocolate,strawberry Other Allergy (See Comments) 10/19/2011 environmental Petrolatum 10/19/2011 Redness and itchiness documented as of this encounter (statuses as of 10/08/2024) Medications CLOBETASOL PROPIONATE 0.05 % EX OINTIndications:D [...] ions:Chronic atrial fibrillation (HCC),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 TAKE 1 TABLET ALL OTHER DAYS OR DIRECTED BY ANTICOAGULATION CLINIC 80 Tablet 3 10/08/19 25 Active documented as of this encounter (statuses as of 10/08/2024) Active Problems Problem Noted Date Diagnosed Date Chronic obstructive pulmonary disease 02/26/2022 Gastro-esophageal reflux disease without esophag itis 08/18/2021 Pulmonary nodules 10/10/2019 Former smoker 04/09/2019 History of nonmelanoma skin cancer 10/27/2017 Overview (10/27/2017): SCC left forearm 2016 Tricuspid valve regurgitation 02/08/2017 Pulmonary hypertension 02/08/2017 Chronic atrial fibrillation 08/03/2016 Mitral regurgitation 08/03/2016 Primary hypertension 05/04/2016 Aortic regurgitation 05/04/2016 Rosacea 01/16/2013 Edema 12/25/1998 documented as of this encounter (statuses as of 10/08/2024) Resolved Problems Problem Noted Date Diagnosed Date [...] as of this encounter (statuses as of 10/08/2024) Immunizations Name Administration Dates Next Due COVID-19 [...] Industry 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 Medication Therapy Disease Management - Anticoagulation Patient: Alberto Andre | : 1945 Subjective Patient-Reported Symptoms: Patient Findings Positives: Upcoming invasive procedure Negatives: Signs/symptoms of thrombosis, Signs/symptoms of bleeding, Change in health, Change in alcohol use, Change in activity, Missed doses, Extra doses, Change in medications, Change in diet/appetite, Bruising Objective Current Warfarin Dose As of 10/08/2024 Warfarin maintenance plan: 2.5 mg (5 mg x 0.5) every Mon, Wed, Fri; 5 mg (5 mg x 1) all other days INR Result As of 10/08/2024 INR goal: 2.0-3.0 INR used for dosin.4 (10/08/2024) Assessment & Plan Warfarin Plan As of 10/08/2024 Full warfarin instructions: 10/08: Hold; 10/09: Hold; 10/10: 7.5 mg; 10/11: 7.5 mg; Otherwise 2.5 mg every Mon, Wed, Fri; 5 mg all other days Next INR check: 10/24/2024 Repeat PT/INR in 2 week(s) Weekly dose: not changed Additional Dosing Information: Patient reports upcoming right heart [place] [facility] [place]. Patient states he was instructed to hold warfarin x5 days prior to procedure. [facility] unaware until this time. Provided bolus dose upon restarting on 10/10, then will plan to recheck closely x2 weeks post op. Routing to cardiology for anyadditional recommendations at this time. I spent a total of 10-19 minutes (exact time 15 mins) on the date of service in preparation, delivery, and documentation of the care provided to Alberto Andre excluding any time spent in the performance of separately billed services or time spent by another provider/QHP. Kathy Coffey RPh Clinical Pharmacist 10/08/2024, 10:32 AM documented in this encounter Plan of Treatment Upcoming Encounters Date Type Department Care Team (Latest Contact Info) Description 10/10/2024 7:00 AM EST Office Visit Cardiology [facility], [place] [address] [place] [facility] [place] [address] [facility] Cardiac Recovery [facility] [address] [place] [address] 10/10/2024 8:00 AM EST Appointment Cardiac Studies [facility], [place] [address] [place] [address] 10/10/2024 10:00 AM EST Hospital Encounter CRS Waiting [facility] Cardiac Recovery Suite Waiting Unit, [address] [place] [address] Issa Roman MD [address] [place] [address] 10/10/2024 10:00 AM EST - 10/10/2024 11:00 AM EST Surgery CRS Waiting [facility] Cardiac Recovery Suite Waiting Unit, H [address] [place] [phone] Issa Roman MD [address] [place] [phone] CORONARY ANGIOGRAPHY W/RIGHT+LEFT CATH 10/24/2024 10:00 AM EST Anticoagulation Pharmacy, [address] [place] [address] [place] [phone] 04/25/2025 10:00 AM EDT Office Visit Cardiology [address] [place] [address] Jamia Abebe PA-Walter [address] [place] [address] 04/29/2025 10:00 AM EDT Office Visit Family Medicine [address] [place] [phone] Patrick Crawley MD [address] [place] [address] [place] [phone] Scheduled Procedures Name Priority Associated Diagnoses Date/Ti me CORONARY ANGIOGRAPHY W/RIGHT+LEFT CATH Mitral regurgitation Tricuspid regurgitation 10/10/2024 10:00 AM EST Health Maintenance Due Date Last Done Comments Alpha-1 Antitrypsin 1962 Zoster Vaccines (1 of 2) 1994 DTap/Tdap Vaccines (1 - Tdap) 12/23/1999 12/22/1999 Adult Wellness Visit 2010 COVID-19 Vaccine ( season) 2024 07/25/2023, 01/18/2022, 07/31/2021, Additional history exists Albumin/Creatinine Ratio 07/20/2025 07/20/2022, 1203/2021 Depression Screening 09/06/2025 09/06/2024 GFR 09/06/2025 09/06/2024, 01/10, 07/25/2023, Additional history exists O2 ASSESSMENT COMPLETED IN PAST YEAR FOR COPD 09/06/2025 09/06/2024 Pneumococcal Vaccine: 50+ Years Completed 08/07/2018, 07/27/2011 [...] Comments INR FINGERSTICK, POINT OF CARE STAT 10/08/2024 10:37 AM EST Chronic atrial fibrillation (HCC) Anticoagulation management encounter documented in this encounter Results * INR FINGERSTICK, POINT OF CARE (10/08/2024 10:37 AM EST) Fingerstick INR 1.4 INR 10:39 AM EST [facility] 55 Blood 10/08/2024 10:3 7 AM EST 10/08/2024 10:39 AM EST Narrative [facility] 55 - 10/08/2024 10:39 AM EST Therapeutic ranges for non-operative patients: Prophylaxsis/treatment of DVT: (Range:2.0-3.0) Treatment of pulmonary embolism:(Range:2.0-3.0) Prevention of systemic embolism from: -tissue heart valves -acute myocardial infarction -valvular heart disease -atrial fibrillation (Range: 2.0-3.0) Mechanical prosthetic valves: (Range: 2.5-3.5) Kathy Coffey [facility] LAB POINT OF CARE TEST DOCKED DEVICE UNSOLICITED RESULTS Final Result [facility] [address] [place] [address] [place] [phone] documented in this encounter Visit Diagnoses Diagnosis Anticoagulation management encounter- Primary Encounter for therapeutic drug monitoring Chronic atrial fibrillation (HCC) Atrial fibrillation Mitral regurgitation Mitral valve disorders Tricuspid regurgitation Diseases of tricuspid valve documented in this encounter Care Teams [employer] Salesperson Relationship Specialty Start Date End Date Patrick Crawley MD [address] [place] [address] [place] [address] PCP - General Family Medicine 01/24/24 documented as of this encounter"
--- OUTSIDE RECORDS SUMMARY | 2024-11-17 12:20 | External Medical Summary | Summary of Care ---
Author Name Unknown Organization [facility] Address [address] [facility] [address] Phone [phone] Care Team Providers Care Food Counselor Name Role Phone Patrick Crawley MD Primary Care Provide r Reason for Visit * Reason Comments Outpatient Testing Encounter Details Date Type Department Care Team (Late st Contact Info) Description 09/06/2024 11:20 AM EST Laboratory Laboratory [address] [place] [phone] [place] [address] Arrived Allergies Active Allergy Reactions Criticality Noted Date Comments Atenolol Hypertension 06/19/2015 Food (See Comments) 10/19/2011 Chocolate,strawberry Other Allergy (See Comments) 10/19/2011 environmental Petrolatum 10/19/2011 Redness and itchiness documented as of this encounter (statuses as of 09/06/2024) Medications CLOBETASOL PROPIONATE 0.05 % EX OINTIndications:D [...] Cough. 30 Capsule 1 09/14/19 24 Active Warfarin Sodium 5 MG Oral Tablet (Coumadin)Indicat ions:Chronic atrial fibrillation (HCC),Anticoagula tion management encounter,[facility] current use of anticoagulant therapy TAKE one-half TABLET ON MONDAYS, WEDNESDAYS, AND FRIDAYS. TAKE 1 TABLET ALL OTHER DAYS OR DIRECTED BY ANTICOAGULATION CLINIC 80 Tablet 3 4 3:31 PM EDT 10/18/19 24 Active Albuterol Sulfate HFA 108 (90 Base) MCG/ACT Inhalation Aerosol SolutionIndicatio ns:Pulmonary nodules,Pulmonary hypertension (HCC),Chronic atrial fibrillation (HCC),Nonrheumati c aortic valve insufficiency,ILD (interstitial lung disease) ([facility]) Inhale 2 Puffs by mouth every 4 [...] 8:16 AM EST 09/04/20 24 025 Active documented as of this encounter (statuses as of 09/06/2024) Active Problems Problem Noted Date Diagnosed Date [...] as of this encounter (statuses as of 09/06/2024) Resolved Problems Problem Noted Date Diagnosed Date [...] as of this encounter (statuses as of 09/06/2024) Immunizations Name Administration Dates Next Due COVID-19 [...] Industry 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 [employer]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 No t on file documented as of this encounter Plan of Treatment Upcoming Encounters Date Type Department Care Team (Latest Contact Info) Description 10/08/2024 10:30 AM EST Anticoagulation Pharmacy, [address] [place] [address] [place] [address] 10/10/2024 7:00 AM EST Office Visit Cardiology [facility], [place] [address] [place] [address] [facility] Cardiac Recovery [facility] [address] [place] [address] 10/10/2024 8:00 AM EST Appointment Cardiac Studies [facility] [address] [place] [address] 10/10/2024 10:00 AM EST Hospital Encounter CRS Waiting [facility], Cardiac Recovery Suite Waiting Unit, H [address] [place] [phone] Issa Roman MD [address] [place] [address] 10/10/2024 10:00 AM EST - 10/10/2024 11:00 AM EST Surgery CRS Waiting [facility], Cardiac Recovery Suite Waiting Unit, H [address] [facility] [place] [address] Issa Roman MD [address] [place] [phone] CORONARY ANGIOGRAPHY W/RIGHT+LEFT CATH 03/13/2025 10:00 AM EDT Office Visit Cardiology, [facility] [address] [place] [address] Jamia Abebe PA-C [address] [place] [address] 04/29/2025 10:00 AM EDT Office Visit Family Medicine [address] [place] [phone] Patrick Crawley MD [address] [place] [address] [place] [address] Scheduled Procedures Name Priority Associated Diagnoses Date/Ti [...] COPD 01/23/2025 01/24/2024 Albumin/Creatinine Ratio 07/20/2025 07/20/2022, 1203/2021 Depression Screening 09/06/2025 09/06/2024 Pneumococcal Vaccine: 50+ Years Completed [...]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documented as of this encounter Care Teams Food Counselor Relationship Specialty Start Date End Date Patrick Crawley MD [address] [place] [address] [place] [address] PCP - General Family Medicine 01/24/24 documented as of this encounter
--- OUTSIDE RECORDS SUMMARY | 2024-11-17 12:20 | External Medical Summary ---
Author Name Unknown Address Unknown Organization : Laboratory Report Ordering Provider Test Date Status DOROTA HERNANDEZ 10/10/2024 10:52:00 Final Observation Date Value Abnormality Reference (Units) Status Blood draw [PhenX] 10/10/2024 10:52:00 Pulmonary Artery Final Hemoglobin [Mass/volume] in Blood by Oximetry 10/10/2024 10:52:00 14.2 14.0-16.8 (g/dL) Final Oxyhemoglobin, Fractional, POC (Oximeter) 10/10/2024 10:52:00 51.7 Below low normal 92.0-100.0 (%) Final Oxygen content, POC (Oximeter) 10/10/2024 10:52:00 10.2 1.1-20.9 (mL/dL) Final Performing Location
--- OUTSIDE RECORDS SUMMARY | 2024-11-17 12:20 | External Medical Summary | Summary of Care ---
Author Name Unknown Organization [facility] Address [address] [facility] [address] Phone [phone] Care Team Providers Care Rn Behavioral Health Name Role Phone Patrick Crawley MD Primary Care Provide r Encounter Details Date Type Department Care Team (Late st Contact Info) Description 10/02/2024 Population Health External Data Unspecified Department Allergies Active Allergy Reactions Criticality Noted Date Comments Atenolol Hypertension 06/19/2015 Food (See Comments) 10/19/2011 Chocolate,strawberry Other Allergy (See Comments) 10/19/2011 environmental Petrolatum 10/19/2011 Redness and itchiness documented as of this encounter (statuses as of 10/02/2024) Medications CLOBETASOL PROPIONATE 0.05 % EX OINTIndications:D [...] (Coumadin)Indicat ions:Chronic atrial fibrillation (HCC),Anticoagula tion management encounter,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 TAKE 1 TABLET ALL OTHER DAYS OR DIRECTED BY ANTICOAGULATION CLINIC 80 Tablet 3 4 3:31 PM EDT 10/18/19 24 Active Albuterol Sulfate HFA 108 (90 Base) MCG/ACT Inhalation Aerosol SolutionIndicatio ns:Pulmonary nodules,Pulmonary hypertension (HCC),Chronic atrial fibrillation (HCC),Nonrheumati c aortic valve insufficiency,ILD (interstitial lung disease) ([facility]) Inhale 2 Puffs by mouth every 4 [...] as of this encounter (statuses as of 10/02/2024) Active Problems Problem Noted Date Diagnosed Date [...] as of this encounter (statuses as of 10/02/2024) Resolved Problems Problem Noted Date Diagnosed Date [...] as of this encounter (statuses as of 10/02/2024) Immunizations Name Administration Dates Next Due COVID-19 [...] Industry Job Start 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 Job End Date 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 No t on file documented as of this encounter Plan of Treatment Upcoming Encounters Date Type Department Care Team (Latest Contact Info) Description 10/08/2024 10:30 AM EST Anticoagulation Pharmacy, [address] [place] [phone] [place] [phone] 10/10/2024 7:00 AM EST Office Visit Cardiology [facility], [place] [address] [facility] [place] [address] [place], Cardiac Recovery [facility] [address] [place] [address] 10/10/2024 8:00 AM EST Appointment Cardiac Studies [facility] [address] [place], [place] [phone] 10/10/2024 10:00 AM EST Hospital Encounter CRS Waiting [facility], Cardiac Recovery Suite Waiting Unit, H [address] [place] [address] Issa Roman MD [address] [place] [address] 10/10/2024 10:00 AM EST - 10/10/2024 11:00 AM EST Surgery CRS Waiting [facility], Cardiac Recovery Suite Waiting Unit, [address] [place] [phone] Issa Roman MD [address] [place] [phone] CORONARY ANGIOGRAPHY W/RIGHT+LEFT CATH 04/25/2025 10:00 AM EDT Office Visit Cardiology [address] [place] [address] Jamia Abebe PA-C [address] [place] [phone] 04/29/2025 10:00 AM EDT Office Visit Family Medicine [address] [place] [phone] Patrick Crawley MD [address] [place] [address] [place] [phone] Scheduled Procedures Name Priority Associated Diagnoses Date/Ti me CORONARY ANGIOGRAPHY W/RIGHT+LEFT CATH Mitral regurgitation Tricuspid regurgitation 10/10/2024 10:00 AM EST Health Maintenance Due Date Last Done Comments Alpha-1 Antitrypsin 1962 Zoster Vaccines (1 of 2) 1994 DTap/Tdap Vaccines (1 - Tdap) 12/23/1999 12/22/1999 Adult Wellness Visit 2010 COVID-19 Vaccine ( season) 2024 07/25/2023, 01/18/2022, 07/31/2021, Additional history exists Albumin/Creatinine Ratio 07/20/2025 07/20/2022, 03/2021 Depression Screening 09/06/2025 09/06/2024 GFR 09/06/2025 09/06/2024, [...] filedocumented as of this encounter Care Teams Rn Behavioral Health Relationship Specialty Start Date End Date Patrick Crawley MD [address] [place] [address] [place] [phone] PCP - General Family Medicine 01/24/24 documented as of this encounter
--- OUTSIDE RECORDS SUMMARY | 2024-11-17 12:20 | External Medical Summary | Summary of Care ---
Author Name Unknown Organization [facility] Address [address] [facility] [place] [address] Phone [phone] Care Team Providers Care Hand Frame Surgical Elastic Knitter Name Role Phone Patrick Crawley MD Primary Care Provide r Reason for Visit * Reason Comments Re-Check 6 mo Encounter Details Date Type Department Care Team (Latest Contact Info) Description 09/06/2024 10:40 AM EST Office Visit Family Medicine [address] [phone] Patrick Crawley MD [address] [place] [address] [place] [address] HTN, goal below 140/90*; Screening for depression; Chronic atrial fibrillation (HCC); Chronic obstructive pulmonary disease, unspecified COPD type (HCC); Nonrheumatic tricuspid valve regurgitation Allergies Active Allergy Reactions Criticality Noted Date [...] 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 No t on file documented as of this encounter Last Filed Vital Signs Vital Sign Reading Time Taken Comments Blood Pressure 108/64 09/06/2024 10:41 AM EST Pulse 86 09/06/2024 10:41 AM EST Temperature 35.6 C (96.1 F) 09/06/2024 10:[address] Respiratory Rate - - Oxygen Saturation 95% 09/06/2024 10:41 AM EST Inhaled Oxygen Concentration - - Weight 78.1 kg (172 lb 3.2 oz) 09/06/2024 10:41 AM EST Height - - Body Mass Index 25.43 05/30/2024 10:20 AM EDT documented in this encounter Progress Notes * Patrick Crawley MD - 09/06/2024 11:01 AM EST Subjective: HPI: Alberto Andre is a 79 year old male with hx of afib on coumadin, moderate aortic valve regurgitation, severe tricuspid valve regurgitation, HTN, COPD, Rosacea, hx of Kidney stones seen for Severe TR and MR and AR - sched to undergo cath and LAINA - denied any syncope - does feel tired with walking Afib on coumadin: - denied any gum bleeding - denied any dizziness or palpitation HTN: - on Lisinopril 40mg daily, Aldactone 12.5mg daily, Torsemide 20mg daily - denied any worsening leg swelling COPD: - on prn albuterol - occasional cigar smoker Patient Active Problem List Diagnosis Edema Rosacea Primary hypertension Aortic regurgitation Chronic atrial fibrillation (HCC) Mitral regurgitation Tricuspid valve regurgitation Pulmonary hypertension (HCC) History of nonmelanoma skin cancer ILD (interstitial lung disease) (HCC) Former smoker Pulmonary nodules Gastro-esophageal reflux disease without esophagitis Chronic obstructive pulmonary disease (HCC) Current Outpatient Medications Medication Sig Dispense Refill [...] D3/Corin Hips 500-1000-20 MG-UNIT-MG Oral Capsule (Vit T-Zkvhkfxbcvebzwf-Gzwd Hip) Take by mouth. Glucosamine Sulfate 1000 MG Oral Tablet Take by mouth. Hydrocortisone 2.5 % External Cream Mix 60 gm with 180 gm Eucerin, use topically 3 times a day as needed. 240 g 5 Benzonatate 100 MG Oral Capsule Take 1 Capsule by mouth 3 times a day as needed for Cough. 30 Capsule 1 Warfarin Sodium 5 MG Oral Tablet [...] DAY IN THE MORNING 90 Tablet 1 No current facility-administered medications for this [...] date: 10/11/1974 Quit date: 10/11/2014 Years since quittin.9 Smokeless tobacco: Never Substance Use Topics Alcohol use: No Vaping/E-Cigarette Use Vaping/E-Cigarette Substances Vaping/E-Cigarette Devices ROS: -Per HPI OBJECTIVE: BP 108/64 | Pulse 86 | Temp 96.1 F (35.6 C) | Wt 172 lb 3.2 oz (78.1 kg) | SpO2 95% | BMI 25.43kg/m | BSA 1.95 m PHYSICAL EXAM: Vitals are reviewed General:. NAD, well developed HEENT:. Normal Conjunctiva, EOMI Cardiac:.in afib + murmur Lungs:. CTA, no wheezing or crackles MSK:. Normal gait Psych:. AAOx3, normal affect ASSESSMENT/PLAN: VSS and stable exam Due to upcoming procedure will get labs done Continue albuterol prn HTN, goal below 140/90 (Primary) - BASIC METABOLIC PANEL Screening for depression - DEPRESSION SCREENING PERFORMED Chronic atrial fibrillation (HCC) - BASIC METABOLIC PANEL - CBC WITH WBC DIFFERENTIAL Chronic obstructive pulmonary disease, unspecified COPD type (HCC) - CBC WITH WBC DIFFERENTIAL Nonrheumatic tricuspid valve regurgitation - BASIC METABOLIC PANEL - CBC WITH WBC DIFFERENTIAL Patrick Crawley MD Family medicine, [place] [address] documented in this encounter Nursing Notes * Radha Manzano CMA - 09/06/2024 10:38 AM EST He is here for a 6 mo recheck today. He has no concerns today. He is going to be getting a heart cath and transesophageal echo done at [facility] in Sep. documented in this encounter Plan of Treatment Upcoming Encounters Date Type Department Care Team (Latest Contact Info) Description 10/08/2024 10:30 AM EST Anticoagulation Pharmacy, [address] [place] [phone] [place] [phone] 10/10/2024 7:00 AM EST Office Visit Cardiology [facility], [facility] [address] [place] [address] [facility], Cardiac Recovery [facility] [address] [place] [address] 10/10/2024 8:00 AM EST Appointment Cardiac Studies [facility], [facility] [address] [place] [address] 10/10/2024 10:00 AM EST Hospital Encounter [place] [facility] [place] Suite Waiting Unit, H [address] [place] [address] Issa Roman MD [address] [place] [phone] 10/10/2024 10:00 AM EST - 10/10/2024 11:00 AM EST Surgery [place] [place] [facility] Suite Waiting Unit, H [address] [place] [phone] Issa Roman MD [address] [place] [address] CORONARY ANGIOGRAPHY W/RIGHT+LEFT CATH 03/13/2025 10:00 AM EDT Office Visit Cardiology, [facility] [address] [place] [address] Jamia Abebe PA-C [address] [place] [address] 04/29/2025 10:00 AM EDT Office Visit Family Medicine [address] [place] [phone] Patrick Crawley MD [address] [place] [address] [place] [phone] Pending Results Name Type Priority Associated Diagnoses Date /Time BASIC METABOLIC PANEL Lab Routine HTN, goal below 140/90 Chronic atrial fibrillation (HCC) Nonrheumatic tricuspid valve regurgitation 09/06/2024 11:20 AM EST CBC WITH WBC DIFFERENTIAL Lab Routine Chronic atrial fibrillation (HCC) Chronic obstructive pulmonary disease, unspecified COPD type (HCC) Nonrheumatic tricuspid valve regurgitation 09/06/2024 11:20 AM EST CBC Lab Routine Chronic atrial fibrillation (HCC) Chronic obstructive pulmonary disease, unspecified COPD type (HCC) Nonrheumatic tricuspid valve regurgitation 09/06/2024 11:20 AM EST DIFFERENTIAL, AUTOMATED Lab Routine Chronic atrial fibrillation (HCC) Chronic obstructive pulmonary disease, unspecified COPD type (HCC) Nonrheumatic tricuspid valve regurgitation 09/06/2024 11:20 AM EST Scheduled Procedures Name Priority Associated Diagnoses Date/Ti ca CORONARY ANGIOGRAPHY W/RIGHT+LEFT CATH Mitral regurgitation Tricuspid [...] as of this encounter Visit Diagnoses Diagnosis HTN, goal below 140/90- Primary Unspecified essential hypertension Screening for depression Chronic atrial fibrillation (HCC) Atrial fibrillation Chronic obstructive pulmonary disease, unspecified COPD type (HCC) Nonrheumatic tricuspid valve regurgitation Tricuspid valve disorders, specified as nonrheumatic Mitral regurgitation Mitral valve disorders Tricuspid regurgitation Diseases of tricuspid valve documented in this encounter Care Teams Hand Frame Surgical Elastic Knitter Relationship Specialty Start Date End Date Patrick Crawley MD [address] [place] [address] [place] [phone] PCP - General Family Medicine 01/24/24 documented as of this encounter"
--- OUTSIDE RECORDS SUMMARY | 2024-11-17 12:20 | External Medical Summary | Summary of Care ---
Author Name Unknown Organization [facility] Address [address] [place] [address] Phone [phone] Care Team Providers Care Food Mixer Assembler Name Role Phone Patrick Crawley MD Primary Care Provide r Reason for Visit * Reason Comments Medication Refill Encounter Details Date Type Department Care Team (Late st Contact Info) Description 10/07/2024 Refill Family Medicine [address] [phone] Patrick Crawley MD [address] [place] [phone] Chronic atrial fibrillation (HCC); Anticoagulation management encounter; retirement current use of anticoagulant therapy Allergies Active Allergy Reactions Criticality Noted Date Comments Atenolol Hypertension 06/19/2015 Food (See Comments) 10/19/2011 Chocolate,strawberry Other Allergy (See Comments) 10/19/2011 environmental Petrolatum 10/19/2011 Redness and itchiness documented as of this encounter (statuses as of 10/08/2024) Medications CLOBETASOL PROPIONATE 0.05 % EX OINTIndications: [...] aortic valve insufficiency,IL D (interstitial lung disease) (HCC) Inhale 2 Puffs [...] 24 025 Active Lisinopril 40 MG Oral TabletIndication s:HTN, goal below 140/90 TAKE ONE TABLET BY MOUTH EVERY DAY IN THE MORNING 90 Tablet 1 4 8:16 AM EST 09/04/20 24 025 Active Warfarin Sodium 5 MG Oral Tablet (Coumadin)Indica tions:Chronic atrial fibrillation (HCC),Anticoagul ation management encounter,retirement current use of anticoagulant therapy TAKE one-half TABLET ON MONDAYS, WEDNESDAYS, AND FRIDAYS. TAKE 1 TABLET ALL OTHER DAYS OR DIRECTED BY ANTICOAGULATION CLINIC 80 Tablet 3 10/08/19 25 Active Warfarin Sodium 5 MG Oral Tablet (Coumadin)Indica tions:Chronic atrial fibrillation (HCC),Anticoagul ation management encounter,retirement current use of anticoagulant therapy TAKE one-half TABLET ON MONDAYS, WEDNESDAYS, AND FRIDAYS. 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 TAKE 1 TABLET ALL OTHER DAYS OR DIRECTED BY ANTICOAGULATION CLINICAuthorizing Provider: Antwan CRAWLEY User: LINCOLN YIP--- documented in this encounter Plan of Treatment Upcoming Encounters Date Type Department Care Team (Latest Contact Info) Description 10/08/2024 10:30 AM EST Anticoagulation Pharmacy, [address] [place] [phone] [place] [phone] 10/10/2024 7:00 AM EST [facility] [address] [place] [facility] [place] [address] [facility] [place] [address] [place] [address] 10/10/2024 8:00 AM EST Appointment Cardiac Studies [facility] [address] [place], [place] [phone] 10/10/2024 10:00 AM EST Hospital Encounter [place] [facility] [place], H [address] [place] [address] Issa Roman MD [address] [place] [address] 10/10/2024 10:00 AM EST - 10/10/2024 11:00 AM EST Surgery [place] [facility] Suite Waiting Unit, H [address] [place] [phone] Issa Roman MD [address] [place] [address] CORONARY ANGIOGRAPHY W/RIGHT+LEFT CATH 04/25/2025 10:00 AM EDT Office Visit Cardiology [address] [place] [address] Jamia Abebe PA-C [address] [place] [address] 04/29/2025 10:00 AM EDT Office Visit Family Medicine [address] [place] [phone] Patrick Crawley MD [address] [place] [address] [place] [phone] Scheduled Procedures Name Priority Associated Diagnoses Date/Ti [...] management encounter Encounter for therapeutic drug monitoring terminal superintendent current use of anticoagulant therapy Mitral regurgitation Mitral valve disorders Tricuspid regurgitation Diseases of tricuspid valve documented in this encounter Care Teams Food Mixer Assembler Relationship Specialty Start Date End Date Patrick Crawley MD [address] [place] [address] [place] [address] PCP - General Family Medicine 01/24/24 documented as of this encounter
--- OUTSIDE RECORDS SUMMARY | 2024-11-17 12:20 | External Medical Summary ---
Author Name Unknown Address Unknown Organization : Laboratory Report Ordering Provider Test Date Status LUÍS LUCIO 10/08/2024 10:37:44 Final Therapeutic ranges for non-o perative patients:
Prophylaxsis/treatment of DVT: (Range:2.0-3.0)
Treatment of pulmonary embolism:(Range:2.0-3.0)
Prevention of systemic embolism from:
-tissue heart valves
-acute myocardial infarction
-valvular heart disease
-atrial fibrillation
(Range: 2.0-3.0)
Mechanical prosthetic valves: (Range: 2.5-3.5) Observation Date Value Abnormality Reference (Units ) Status INR in Capillary blood by Coagulation assay 10/08/2024 10:37:44 1.4 (INR) Final Performing Location
--- OUTSIDE RECORDS SUMMARY | 2024-11-17 12:20 | External Medical Summary ---
Author Name Unknown Address Unknown Organization [id number]:[facility] [place] [address] [facility] [place] [id number] Laboratory Report Ordering Provider Test Date Status BERNARDO PARIKH 09/06/2024 11:20:07 Venecia l Observation Date Value Abnormality Reference (Units ) Status SYNC LEUKOCYTES IN BLOOD BY AUTOMATED COUNT 09/06/2024 11:20:07 6.62 4.00-10.80 (K/uL) Final Segs 09/06/2024 11:20:07 56.8 40.0-75.0 (%) Final Lymphs % 09/06/2024 11:20:07 21.6 18.0-42.0 (%) Final Monos 09/06/2024 11:20:07 14.7 Above high normal 1.0-11.0 (%) Final Eosinophils 09/06/2024 11:20:07 4.7 0.0-6.0 (%) Final Basos 09/06/2024 11:20:07 2.0 0.0-2.0 (%) Final Immature Granulocyte, Percent 09/06/2024 11:20:07 0.2 0.0-2.0 (%) Final Absolute Segs 09/06/2024 11:20:07 3.77 1.80-7.70 (K/uL) Final Lymphs, absolute 09/06/2024 11:20:07 1.43 1.00-4.80 (K/ul) Final Monos, Abs 09/06/2024 11:20:07 0.97 0.00-1.10 (K/uL) Final Eos, Abs 09/06/2024 11:20:07 0.31 0.00-0.70 (K/uL) Final Basos, Abs 09/06/2024 11:20:07 0.13 0.00-0.20 (K/uL) Final Immature Granulocytes, Number 09/06/2024 11:20:07 0.01 0.00-0.20 (K/uL) Final Performing Location [facility] [place] [facility] [address] [place] [address]
--- OUTSIDE RECORDS SUMMARY | 2024-11-17 12:20 | External Medical Summary | Summary of Care ---
Author Name Unknown Organization [facility] Address [address] [facility] [place] [address] Phone [phone] Care Team Providers Care Director Selection And Administration Name Role Phone Patrick Crawley MD Primary Care Provide r Reason for Visit * Reason Comments Medication Refill Encounter Details Date Type Department Care Team (Late st Contact Info) Description 09/02/2024 Refill Cardiology, [facility] [address] [place] [address] Dominic Luo, [address] [place] [phone] HTN, goal below 140/90 Allergies Active Allergy Reactions Criticality Noted Date Comments Atenolol Hypertension 06/19/2015 Food (See Comments) 10/19/2011 Chocolate,strawberry Other Allergy (See Comments) 10/19/2011 environmental Petrolatum 10/19/2011 Redness and itchiness documented as of this encounter (statuses as of 09/04/2024) Medications CLOBETASOL PROPIONATE 0.05 % EX OINTIndications: [...] (Coumadin)Indica tions:Chronic atrial fibrillation (HCC),Anticoagul 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 TAKE 1 TABLET ALL OTHER DAYS OR DIRECTED BY ANTICOAGULATION CLINIC 80 Tablet 3 4 3:31 PM EDT 10/18/19 24 Active Albuterol Sulfate HFA 108 (90 Base) MCG/ACT Inhalation Aerosol SolutionIndicati ons:Pulmonary nodules,Pulmonar y hypertension (HCC),Chronic atrial fibrillation (HCC),Nonrheumat ic aortic valve insufficiency,IL D (interstitial lung disease) ([facility]) Inhale 2 Puffs by mouth [...] DAY IN THE MORNING 90 Tablet 1 09/04/20 24 025 Active Lisinopril 40 MG Oral TabletIndication s:HTN, goal below 140/90 TAKE ONE TABLET BY MOUTH EVERY DAY IN THE MORNING 90 Tablet 3 4 1:13 PM EDT 09/14/19 24 024 Disconti nued(Ref ill) documented as of this encounter (statuses as of 09/04/2024) Active Problems Problem Noted Date Diagnosed Date [...] as of this encounter (statuses as of 09/04/2024) Resolved Problems Problem Noted Date Diagnosed Date [...] as of this encounter (statuses as of 09/04/2024) Immunizations Name Administration Dates Next Due COVID-19 mRNA, LNP-s, No Pre serve, 2-Dose Series (Moderna) 12/31/2020,11/27/2020 COVID-19, MRNA-LNP, PF, 30 M CG/0.3 mL, 12 YRS AND ABOVE, IM ([facility]) 07/25/2023 COVID-19, mRNA, LNP-s, PF, B ooster, [...] 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 Pending Prescriptions: Disp Refills Lisinopril 40 MG Oral Tablet 90 Tab*3 Sig: TAKE ONE TABLET BY MOUTH EVERY DAY IN THE MORNING Last Visit: 08/30/2024 (in office), 03/07/2020 (telemedicine) Next Visit: 03/13/2025 If no future appointments scheduled, and last appointment is greater than a year ago, please schedule patient for a follow-up appointment Last date the medication was ordered: 09/14/2023 Pharmacy: [facility] Is this request for a controlled substance?No it is not controlled. Urine Drug Screen:No results found for this or any previous visit. Patient Phone Numbers Labs: Lab Results Component Value Date/Time CREAT 0.9 01/24/2024 11:58 AM CREAT 0.94 06/27/2020 12:00 AM CREAT 0.9 02/25/2017 10:04 AM POTASSIUM 4.9 01/24/2024 11:58 AM POTASSIUM 4.2 06/27/2020 12:00 AM POTASSIUM 3.7 02/25/2017 10:04 AM TSH 2.67 08/31/2022 02:48 PM TSH 1.76 06/27/2020 12:00 AM TSH 1.07 12/25/1998 12:10 PM LDL 24 01/24/2024 11:58 AM LDL 57 05/28/2002 09:04 AM LDLCALC 34 06/27/2020 12:00 AM ALT 14 02/08/2017 02:02 PM documented in this encounter Plan of Treatment Upcoming Encounters Date Type Department Care Team (Latest Contact Info) Description 09/06/2024 10:40 AM EST Office Visit Family Medicine [address] [place] [phone] Patrick Crawley MD [address] [place] [address] [place] [phone] 10/08/2024 10:30 AM EST Anticoagulation Pharmacy, [address] [place] [address] [place] [phone] 10/10/2024 7:00 AM EST Office Visit Cardiology [facility] [place] [address] [place] [address] [facility] Cardiac Recovery [facility] [address] [place] [address] 10/10/2024 8:00 AM EST Appointment Cardiac Studies [facility] [address] [facility] [place] [phone] 10/10/2024 10:00 AM EST Hospital Encounter CRS Waiting [facility], Cardiac Recovery Suite Waiting Unit, [address] [place] [place] [id number] Issa Roman MD [address] [place] [address] 10/10/2024 10:00 AM EST - 10/10/2024 11:00 AM EST Surgery CRS Waiting [facility], Cardiac Recovery Suite Waiting Unit, H [address] [facility] [place] [phone] Issa Roman [facility] [address] [facility] [phone] CORONARY ANGIOGRAPHY W/RIGHT+LEFT CATH 03/13/2025 10:00 AM EDT Office Visit Cardiology, [facility] [address] [place] [address] Jamia Abebe PA-C [address] [place] [phone] Scheduled Procedures Name Priority Associated Diagnoses Date/Ti [...] COPD 01/23/2025 01/24/2024 Albumin/Creatinine Ratio 07/20/2025 07/20/2022, 12/03/2021 Pneumococcal Vaccine: 65+ Years Completed 08/07/2018, 07/27/2011 [...] encounter Visit Diagnoses Diagnosis HTN, goal below 140/90 Unspecified essential hypertension Mitral regurgitation Mitral valve disorders Tricuspid regurgitation Diseases of tricuspid valve documented in this encounter Care Teams Director Selection And Administration Relationship Specialty Start Date End Date Patrick Crawley MD [address] [place] [address] [place] [phone] PCP - General Family Medicine 01/24/24 documented as of this encounter
--- OUTSIDE RECORDS SUMMARY | 2024-11-17 12:20 | External Medical Summary | Summary of Care ---
Author Name Unknown Organization [facility] Address [address] [place] [address] Phone [phone] Care Team Providers Care Customer Service Sales Associate Name Role Phone Patrick Crawley MD Primary Care Provide r Reason for Referral * Precert (Diagnostic Medical) (Within 10 days (routine)) - Authorized Specialty Diagnoses / Procedures Referred By Contac t Referred To Contact Cardiac Studies Diagnoses Mitral regurgitation Tricuspid valve regurgitation Procedures TRANSESOPHAGEAL ECHO (COMPLETE) Cardiology [facility] [place] [address] [place] [address] Phone: tel: fax: Referral ID Status Reason Start Date Expiration Date V isits Requested Visits Authorized [id number] Authorized Precert 10/04/[phone] Encounter Details Date Type Department Care Team (Late st Contact Info) Description 09/03/2024 [facility] [address] [place] [address] Neisha Padgett RN Mitral regurgitation*; Tricuspid valve regurgitation Allergies Active Allergy Reactions Criticality Noted Date Comments Atenolol Hypertension 06/19/2015 Food (See Comments) 10/19/2011 Chocolate,strawberry Other Allergy (See Comments) 10/19/2011 environmental Petrolatum 10/19/2011 Redness and itchiness documented as of this encounter (statuses as of 09/03/2024) Medications CLOBETASOL PROPIONATE 0.05 % EX OINTIndications:D [...] needed. 240 g 5 01/20/20 23 Active Lisinopril 40 MG Oral TabletIndications :HTN, [...] (Coumadin)Indicat ions:Chronic atrial fibrillation (HCC),Anticoagula tion management encounter,[facility]PC current use of anticoagulant therapy TAKE one-half [...] as of this encounter (statuses as of 09/03/2024) Active Problems Problem Noted Date Diagnosed Date [...] as of this encounter (statuses as of 09/03/2024) Resolved Problems Problem Noted Date Diagnosed Date [...] as of this encounter (statuses as of 09/03/2024) Immunizations Name Administration Dates Next Due COVID-19 mRNA, LNP-s, No Pre serve, 2-Dose Series (Moderna) 12/31/2020,11/27/2020 COVID-19, MRNA-LNP, PF, 30 M CG/0.3 mL, 12 YRS AND ABOVE, IM ([facility]) 07/25/2023 COVID-19, mRNA, LNP-s, PF, B [...] 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 No t on file documented as of this encounter Plan of Treatment Upcoming Encounters Date Type Department Care Team (Late st Contact Info) Description 09/06/2024 10:40 AM EST Office Visit Family Medicine [address] [place] [phone] Patrick Crawley MD [address] [place] [address] [place] [phone] 10/08/2024 10:30 AM EST Anticoagulation Pharmacy, [address] [place] [phone] [place] [phone] 10/10/2024 8:00 AM EST Appointment Cardiac Studies [facility] [address] [address] 03/13/2025 10:00 AM EDT Office Visit Cardiology, [facility] [address] [place] [address] Jamia Abebe PA-C [address] [place] [address] Scheduled Orders Name Type Priority Associated Diagnoses Orde r Schedule TRANSESOPHAGEAL ECHO (COMPLETE) Echocardiology Routine Mitral regurgitation Tricuspid valve regurgitation Expected: 10/04/2024, Expires: 11/04/2024 Health Maintenance Due Date Last Done Comments Depression Screening 1956 Alpha-1 Antitrypsin 1962 Zoster Vaccines (1 of 2) 1994 DTap/Tdap Vaccines (1 - Tdap) 12/23/1999 12/22/1999 Adult Wellness Visit 2010 COVID-19 Vaccine ( season) 2024 07/25/2023, 01/18/2022, 07/31/2021, Additional history exists GFR 01/23/2025 01/24/2024, 07/13, 08/31/2022, Additional history exists O2 ASSESSMENT COMPLETED IN PAST YEAR FOR COPD 01/23/2025 01/24/2024 Albumin/Creatinine Ratio 07/20/2025 07/20/2022, 12/0 03/2021 Pneumococcal Vaccine: 65+ Years Completed 08/07/2018, [...] as of this encounter Visit Diagnoses Diagnosis Mitral regurgitation- Primary Mitral valve disorders Tricuspid valve regurgitation Diseases of tricuspid valve documented in this encounter Care Teams Customer Service Sales Associate Relationship Specialty Start Date End Date Patrick Crawley MD [address] [place] [address] [place] [phone] PCP - General Family Medicine 01/24/24 documented as of this encounter
--- OUTSIDE RECORDS SUMMARY | 2024-11-17 12:20 | External Medical Summary ---
Author Name Unknown Address Unknown Organization K01:[facility] - [address] [place] [address] Laboratory Report Ordering Provider Test Date Status BERNARDO PARIKH 09/06/2024 11:20:07 Venecia l Observation Date Value Abnormality Reference (Units ) Status BUN 09/06/2024 11:20:07 20 6-20 (mg/dL) Final Creatinine 09/06/2024 11:20:07 1.0 0.6-1.2 (mg/dL) Final Glomerular filtration rate/1.73 sq M.predicted [Volume Rate/Area] in Serum, Plasma or Blood by Creatinine-based formula (CKD-EPI) 09/06/2024 11:20:07 80 >=60 (mL/min) Final eGFR is calculated based on the CKD-EPI 2020 equation. Sodium 09/06/2024 11:20:07 138 135-146 (m mol/L) Final Potassium 09/06/2024 11:20:07 4.9 3.5-5.1 (m mol/L) Final Cl 09/06/2024 11:20:07 99 98-107 (mm ol/L) Final CO2 09/06/2024 11:20:07 27 22-32 (mmo l/L) Final Anion gap 09/06/2024 11:20:07 12 7-15 (mmol /L) Final Glucose 09/06/2024 11:20:07 76 70-120 (mg /dL) Final Calcium 09/06/2024 11:20:07 9.8 8.4-10.2 ( mg/dL) Final Performing Location [facility] - [address] [place] [address]
--- OUTSIDE RECORDS SUMMARY | 2024-11-17 12:20 | External Medical Summary | Summary of Care ---
Author Name Unknown Organization [facility] Address [address] [place] [address] Phone [phone] Care Team Providers Care Routeman Name Role Phone Patrick Crawley MD Primary Care Provide r Encounter Details Date Type Department Care Team (Late st Contact Info) Description 08/26/2024 Documentation [facility], Cardiac Recovery Suite, [facility] [address] [place] [address] Neisha Padgett, RN Allergies Active Allergy Reactions Criticality Noted Date Comments Atenolol Hypertension 06/19/2015 Food (See Comments) 10/19/2011 Chocolate,strawberry Other Allergy (See Comments) 10/19/2011 environmental Petrolatum 10/19/2011 Redness and itchiness documented as of this encounter (statuses as of 08/26/2024) Medications CLOBETASOL PROPIONATE 0.05 % EX OINTIndications:D [...] Apply to face every night 45 g 06/06/20 14 Active urea (CARMOL 40) 40 [...] (Coumadin)Indicat ions:Chronic atrial fibrillation (HCC),Anticoagula tion management encounter,half-way current use of anticoagulant therapy TAKE one-half [...] as of this encounter (statuses as of 08/26/2024) Active Problems Problem Noted Date Diagnosed Date [...] as of this encounter (statuses as of 08/26/2024) Resolved Problems Problem Noted Date Diagnosed Date [...] as of this encounter (statuses as of 08/26/2024) Immunizations Name Administration Dates Next Due COVID-19 mRNA, LNP-s, No Pre serve, 2-Dose Series (Moderna) 12/31/2020,11/27/2020 COVID-19, MRNA-LNP, PF, 30 M CG/0.3 mL, 12 YRS AND ABOVE, IM ([facility]) 07/25/2023 COVID-19, mRNA, LNP-s, PF, B ooster, [...] 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 Risk Factors: Severe MR, Severe TR, Mod AI, chronic Afib, HTN, pHTN FREDO Howard Interventional Valve Nurse Navigator documented in this encounter Plan of Treatment Upcoming Encounters Date Type Department Care Team (Late st Contact Info) Description 08/27/2024 10:20 AM EST Anticoagulation Pharmacy, [address] [place] [phone] [place] [phone] 08/29/2024 10:00 AM EST Office Visit Cardiology, [facility] [address] [facility] [place] [address] Tom Hernandez MD [address] [facility] [place] [address] 08/30/2024 10:30 AM EST Office Visit Cardiology, [facility] [address] [place] [address] Jordan Gerber, [address] [place] [address] 09/06/2024 10:40 AM EST Office Visit Family Medicine [address] [place] [phone] Patrick Crawley MD [address] [place] [address] [place] [phone] Health Maintenance Due Date Last Done Comments [...] filedocumented as of this encounter Care Teams Routeman Relationship Specialty Start Date End Date Patrick Crawley MD [address] [place] [address] [place] [phone] PCP - General Family Medicine 01/24/24 documented as of this encounter
--- OUTSIDE RECORDS SUMMARY | 2024-11-17 12:20 | External Medical Summary ---
Author Name Unknown Address Unknown Organization : Laboratory Report Ordering Provider Test Date Status DOROTA HERNANDEZ 10/10/2024 10:51:00 Final Observation Date Value Abnormality Reference (Units ) Status Blood draw [PhenX] 10/10/2024 10:51:00 Aorta Final Hemoglobin [Mass/volume] in Blood by Oximetry 10/10/2024 10:51:00 13.0 Below low normal 14.0-16.8 (g/dL) Final Oxyhemoglobin, Fractional, POC (Oximeter) 10/10/2024 10:51:00 85.8 Below low normal 92.0-100.0 (%) Final Oxygen content, POC (Oximeter) 10/10/2024 10:51:00 15.5 1.1-20.9 (mL/dL) Final Performing Location
--- OUTSIDE RECORDS SUMMARY | 2024-11-17 12:20 | External Medical Summary ---
Author Name Unknown Address Unknown Organization : Laboratory Report Ordering Provider Test Date Status LUÍS LUCIO 08/27/2024 10:12:25 Final Therapeutic ranges for non-o perative patients:
Prophylaxsis/treatment of DVT: (Range:2.0-3.0)
Treatment of pulmonary embolism:(Range:2.0-3.0)
Prevention of systemic embolism from:
-tissue heart valves
-acute myocardial infarction
-valvular heart disease
-atrial fibrillation
(Range: 2.0-3.0)
Mechanical prosthetic valves: (Range: 2.5-3.5) Observation Date Value Abnormality Reference (Units ) Status INR in Capillary blood by Coagulation assay 08/27/2024 10:12:25 2.5 (INR) Final Performing Location
--- OUTSIDE RECORDS SUMMARY | 2024-11-17 12:20 | External Medical Summary | Summary of Care ---
Author Name Unknown Organization [facility] Address [address] [facility] [place] [address] Phone [phone] Care Team Providers Care Heat Treatment Technician Name Role Phone Patrick Crawley MD Primary Care Provide r Reason for Visit * Reason Comments Follow Up Encounter Details Date Type Department Care Team (Late st Contact Info) Description 08/30/2024 10:30 AM EST Office Visit Cardiology, [facility] [address] [place] [phone] Jordan Gerber, [address] [place] [phone] Dyspnea on exertion*; Nonrheumatic mitral valve regurgitation; Nonrheumatic tricuspid valve regurgitation; Nonrheumatic aortic valve insufficiency; Pulmonary hypertension (HCC); Chronic atrial fibrillation (HCC); Localized edema Allergies Active Allergy Reactions Criticality Noted Date Comments Atenolol Hypertension 06/19/2015 Food (See Comments) 10/19/2011 Chocolate,strawberry Other Allergy (See Comments) 10/19/2011 environmental Petrolatum 10/19/2011 Redness and itchiness documented as of this encounter (statuses as of 08/30/2024) Medications CLOBETASOL PROPIONATE 0.05 % EX OINTIndications: Dermatitis Apply to affected area twice daily as needed 60 g 5 012 Active METROCREAM 0.75 % EX CREAIndications: Rosacea Apply to face twice daily 45 g 5 012 Active TRIAMCINOLONE ACETONIDE 0.1 % EX OINTIndications: Other atopic dermatitis and related conditions APPLY TO AFFECTED AREA TWICE DAILY as needed for flares 454 g 1 013 Active TRETINOIN 0.025 % EX CREAIndications: Acne Apply to face every night 45 g 5 014 Active Mometasone Furoate 0.1 % creamIndications :Dermatitis Apply to affected areas twice daily as needed 45 g 5 015 Active Multiple Vitamins-Mineral s (MULTIVITAMIN ADULT) TABS [...] a day as needed. 240 g 5 023 Active Lisinopril 40 MG Oral TabletIndication s:HTN, goal below 140/90 TAKE ONE TABLET BY MOUTH EVERY DAY IN THE MORNING 90 Tablet 3 06/06/20 24 1:13 PM EDT 024 2024 Active Benzonatate 100 MG Oral Capsule Take 1 Capsule by mouth 3 times a day as needed for Cough. 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 TAKE 1 TABLET ALL OTHER DAYS OR DIRECTED BY ANTICOAGULATION CLINIC 80 Tablet 3 07/12/20 24 3:31 PM EDT Active Albuterol Sulfate HFA 108 (90 Base) MCG/ACT Inhalation Aerosol SolutionIndicati ons:Pulmonary nodules,Pulmonar y hypertension (HCC),Chronic atrial fibrillation (HCC),Nonrheumat ic aortic valve insufficiency,IL D (interstitial lung disease) (HCC) Inhale 2 Puffs by mouth every 4 hours as needed for Wheezing or Dyspnea. 18 g 2 Active Spironolactone 25 MG Oral Tablet (Aldactone)Indic ations:HTN, goal below 140/90,Localized edema,Nonrheumat ic aortic valve insufficiency,No nrheumatic mitral valve regurgitation TAKE ONE-HALF TABLET BY MOUTH EVERY DAY 45 Tablet 3 07/05/20 24 2:12 PM EDT 024 2024 Active Torsemide 20 MG Oral Tablet (Demadex)Indicat ions:HTN, goal below 140/90,Localized edema,Nonrheumat ic aortic valve insufficiency,No nrheumatic mitral valve regurgitation TAKE ONE TABLET BY MOUTH EVERY MORNING 90 Tablet 3 07/05/20 24 2:12 PM EDT 024 2024 Active Omeprazole 20 MG Oral Capsule Delayed Release (PriLOSEC) TAKE ONE CAPSULE BY MOUTH EVERY DAY 90 Capsule 3 08/17/20 24 5:10 PM EST 024 2024 Active Probiotic Acidophilus Oral Tablet Chewable Take by mouth. 08/30 Discontinued documented as of this encounter (statuses as of 08/30/2024) Active Problems Problem Noted Date Diagnosed Date [...] as of this encounter (statuses as of 08/30/2024) Resolved Problems Problem Noted Date Diagnosed Date [...] as of this encounter (statuses as of 08/30/2024) Immunizations Name Administration Dates Next Due COVID-19 mRNA, LNP-s, No Pre serve, 2-Dose Series (Moderna) 12/31/2020,11/27/2020 COVID-19, MRNA-LNP, PF, 30 M CG/0.3 mL, 12 YRS AND ABOVE, IM ([facility]) 07/25/2023 COVID-19, mRNA, LNP-s, PF, [...] Job 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 No t on file documented as of this encounter Last Filed Vital Signs Vital Sign Reading Time Taken Comments Blood Pressure 108/60 08/30/2024 10:29 AM EST Pulse 60 08/30/2024 10:29 AM EST Temperature - - Respiratory Rate 14 08/30/2024 10:29 AM EST Oxygen Saturation - - Inhaled Oxygen Concentration - - Weight 77.6 kg (171 lb) 08/30/2024 10:29 AM EST Height - - Body Mass Index 25.25 05/30/2024 10:20 AM EDT documented in this encounter Progress Notes * Jordan Gerber, DO - 08/30/2024 10:20 AM EST 08/30/2024 Cardiology Follow Up SUBJECTIVE: History of Present Illness Alberto Andre, aged 79, presents with a history of dyspnea on exertion, which he describes as "slowing down somewhat." He notes that this has been a gradual change management manager the past six months. The patient has a history of atrial fibrillation, aortic valve regurgitation, mitral valve regurgitation, and tricuspid valve regurgitation. He also has pulmonary hypertension. He is accompanied by his spouse, Di. The patient has had issues with leg swelling in the past, but reports that this has improved significantly with the use of diuretics, specifically torsemide and spironolactone. He notes that as long as he takes his water pills, the swelling is kept to a minimum. In March, the patient underwent a stress test which showed minimal abnormality. An echocardiogram revealed that the heart pump function remained normal, but both the mitral and tricuspid valves were more leaky than before. The patient is currently on Coumadin for stroke prevention and has been managing his atrial fibrillation without the need for additional medication to control heart rates. The patient's family lives nearby, and they remain active in his daily life, including maintaining his property. Despite his age and medical conditions, the patient maintains a positive outlook and continues to engage in his daily activities. 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, TR and Aortic Insufficency Interstitial lung disease Pulmonary HTN Extensive ROS: All systems reviewed & are unremarkable except as noted in HPI & below Cardiovascular (chest pain/palpitations/fluttering/diaphoresis/dyspnea on exertion/paroxysmally nocturnal dyspnea):Negative Review of patient's allergies indicates: Allergen Reactions Atenolol Hypertension Food (See Comments) Chocolate,strawberry Other Allergy (See Comments) environmental Vaseline [Petrolatum] Redness and itchiness Current Outpatient Medications Medication Sig Dispense Refill [...] D3/Corin Hips 500-1000-20 MG-UNIT-MG Oral Capsule (Vit J-Niwsbgycagxwavc-Juyj Hip) Take by mouth. Glucosamine Sulfate 1000 MG Oral Tablet Take by mouth. Hydrocortisone 2.5 % External Cream Mix 60 gm with 180 gm Eucerin, use topically 3 times a day as needed. 240 g 5 Probiotic Acidophilus Oral Tablet Chewable Take by mouth. Lisinopril 40 MG Oral Tablet TAKE ONE TABLET BY MOUTH EVERY DAY IN THE MORNING 90 Tablet 3 Benzonatate 100 MG Oral Capsule Take 1 Capsule by mouth 3 times a day as needed for Cough. (Patientnot taking: Reported on 05/17/2024) 30 Capsule 1 Warfarin Sodium 5 MG [...] BY MOUTH EVERY DAY 90 Capsule 3 No current facility-administered medications for this visit. OBJECTIVE/PHYSICAL EXAMINATION: BP 108/60 | Pulse 60 | Resp 14 | Wt 77.6 kg (171 lb) | BMI 25.25 kg/m | BSA 1.94 m General: no acute distress and stated age Eyes: conjunctiva are pink and non-injected, sclera clear Neck: normal jugular venous pulse, no hepatojugular reflux Chest: normal shape and normal respiratory effort Lungs: clear to auscultation , no rales rhonchi or wheezing Cardiac Exam: - irregular rhythm (rate controlled) 2/6 systolic murmur heard best at left apex Abdomen: abdomen soft, non-tender, no abnormal masses and no hepatosplenomegaly Musculoskeletal: no gait disturbance, no weakness Extremities: No lower extremity edema, chronic venous stasis changes, brace on right ankle Neuro: grossly normal exam Psych: appropriate affect and insight. Data: Results DIAGNOSTIC Stress test: Minimal abnormality (03/2024) Echocardiogram: Normal heart pump function, increased mitral valve regurgitation, increased tricuspid valve regurgitation, pulmonary hypertension (03/2024) Echocardiogram 04/11/2024 Interpretation Summary The qualitative LV [...] The estimated pulmonary artery systolic pressure is 68 mm Hg. Compared to last available study changes are noted as follows: Severe mitral regurgitation now present. This study has what is deemed to be a "significant abnormality" consistent with ACT 112. See additional documentation regarding notification of patient and ordering provider. Nuclear stress 04/11/24 Mildly abbnormal nuclear stress demonstrating small apical infarct with mild tom-infarct ischemia involving the apex and apical anterior wall. Ischemic burden of approximately 7%. EKG performed 01/18/24: AF at 68 bpm, RBBB, PVCs, unchanged compared to 10/2022 Assessment & Plan Dyspnea on Exertion Reports no significant change in breathing but notes a general slowing down. Dyspnea is likely multifactorial, involving both cardiac and pulmonary components with noted past history of COPD he was well as mixed valvular heart disease with aortic regurgitation and now severe tricuspid regurgitationsevere mitral regurgitation with pulmonary hypertension. Recent stress test showed minimal abnormality. Echocardiogram revealed normal heart pump function but increased mitral and tricuspid valve regurgitation. - Continue current medications - Perform left and right heart catheterization and coronary angiography - Perform transesophageal echocardiogram at [facility] Pulmonary Hypertension Pulmonary hypertension noted on echocardiogram. Etiology may be related to valvular disease or lesslikely lung pathology. Speculate that it was due to left heart failure in the setting of severe mitral regurgitation. Plan includes evaluating filling pressures during heart catheterization. - Evaluate during heart catheterization and transesophageal echocardiogram Atrial Fibrillation Persistent atrial fibrillation with well-controlled heart rates. Currently managed with Coumadin for stroke prevention. - Continue Coumadin Peripheral Edema Leg swelling is well-controlled with diuretics. No significant changes noted. - Continue torsemide 120 mg daily - Continue spironolactone 0.5 tablet daily Follow-up - Schedule follow-up appointment in a couple of months - Monitor weather conditions for travel to [place] for procedures. Follow Up: Return in about 6 months (around 02/28/2025) for Clinic Visit. | For: Clinic Visit Patient seen in longitudinal follow up of the above issues with assessment and plan as documented. Jordan Gerber DO Cardiology, [address] [address] Text in this note was generated using an [employer] documentation service. I discussed the use of a device to record and summarize our discussion today. All persons present during the encounter consented to its use. documented in this encounter Nursing Notes * Christi Shepherd LPN - 08/30/2024 10:28 AM EST Examination Room: 12 Name: Alberto Andre Date of : 1945 Reason for Visit: Follow up Problems/Concerns: denies Interim Hosp(s): denies Chest Pain/SOB: denies MyChart Discussed: ALREADY ACTIVE Patient was instructed to not get up on the exam table until directed and assisted by their provider; patient is to remain seated in the chair/ wheelchair/ exam table for fall prevention and safety reasons. Patient is aware staff will assist stepping down off exam table with personnel. documented in this encounter Plan of Treatment Upcoming Encounters Date Type Department Care Team (Late st Contact Info) Description 09/06/2024 10:40 AM EST Office Visit Family Medicine [address] [place] [phone] Patrick Crawley MD [address] [place] [address] [place] [phone] 10/08/2024 10:30 AM EST Anticoagulation Pharmacy, [address] [place] [phone] [place] [phone] 03/13/2025 10:00 AM EDT Office Visit Cardiology, [facility] [address] [place] [phone] Jamia Abebe PA-C [address] [place] [address] Health Maintenance Due Date Last Done Comments [...] 01/23/2025 01/24/2024 Albumin/Creatinine Ratio 07/20/2025 07/20/2022, 1203/2021 Pneumococcal Vaccine: 65+ Years Completed 08/07/2018, 07/27/2011 [...] as of this encounter Visit Diagnoses Diagnosis Dyspnea on exertion- Primary Other dyspnea and respiratory abnormality Nonrheumatic mitral valve regurgitation Nonrheumatic tricuspid valve regurgitation Tricuspid valve disorders, specified as nonrheumatic Nonrheumatic aortic valve insufficiency Aortic valve disorders Pulmonary hypertension (HCC) Other chronic pulmonary heart diseases Chronic atrial fibrillation (HCC) Atrial fibrillation Localized edema Edema documented in this encounter Care Teams Heat Treatment Technician Relationship Specialty Start Date End Date Patrick Crawley MD [address] [place] [address] [place] [phone] PCP - General Family Medicine 01/24/24 documented as of this encounter
--- OUTSIDE RECORDS SUMMARY | 2024-11-17 12:21 | External Medical Summary | Summary of Care ---
Author Name Unknown Organization [facility] Address [address] [place] [address] Phone [phone] Care Team Providers Care Orientation And Mobility Instructor Name Role Phone Patrick Crawley MD Primary Care Provide r Reason for Visit * Reason Comments Medication Refill Encounter Details Date Type Department Care Team (Late st Contact Info) Description 08/15/2024 Refill Family Medicine [address] [phone] Jostin Dye MD [address] [place] [id number] Allergies Active Allergy Reactions Criticality Noted Date Comments Atenolol Hypertension 06/19/2015 Food (See Comments) 10/19/2011 Chocolate,strawberry Other Allergy (See Comments) 10/19/2011 environmental Petrolatum 10/19/2011 Redness and itchiness documented as of this encounter (statuses as of 08/15/2024) Medications CLOBETASOL PROPIONATE 0.05 % EX OINTIndications: Dermatitis Apply to affected area twice daily as needed 60 g 5 07/18/20 12 Active FML 0.1 % OP OINTIndications: Eczematous [...] 14 Active urea (CARMOL 40) 40 % creamIndications :Keratoderma Apply to soles and feet every night 85.05 g 08/26/20 15 Active Additional Information Patient not taking.Reported on 05/17/2024 Mometasone Furoate 0.1 % creamIndications :Dermatitis Apply to affected areas twice daily as needed 45 g 08/26/20 15 Active Multiple Vitamins-Mineral s (MULTIVITAMIN [...] (Coumadin)Indica tions:Chronic atrial fibrillation (HCC),Anticoagul ation management encounter,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 TAKE one-half [...] BY MOUTH EVERY DAY 90 Capsule 3 08/15/20 24 025 Active Omeprazole 20 MG Oral Capsule Delayed Release (PriLOSEC) TAKE ONE CAPSULE BY MOUTH EVERY DAY 90 Capsule 3 4 1:12 PM EDT 08/26/20 23 024 Disconti rg(Ref ill) documented as of this encounter (statuses as of 08/15/2024) Active Problems Problem Noted Date Diagnosed Date [...] as of this encounter (statuses as of 08/15/2024) Resolved Problems Problem Noted Date Diagnosed Date [...] as of this encounter (statuses as of 08/15/2024) Immunizations Name Administration Dates Next Due COVID-19 [...] Industry 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 No t on file documented as of this encounter Miscellaneous Notes * Telephone Encounter - Dominic Joe [facility] - 08/15/2024 5:21 PM ESTSigned Prescriptions: Disp Refills Omeprazole 20 MG Oral Capsule Delayed Rele*90 Cap*3 Sig: TAKE ONE CAPSULE BY MOUTH EVERY DAYAuthorizing Provider: Antwan CRAWLEY User: DOMINIC JOE documented in this encounter Plan of Treatment Upcoming Encounters Date Type Department Care Team (Late st Contact Info) Description 08/27/2024 10:20 AM EST Anticoagulation Pharmacy, [address] [place] [phone] [place] [phone] 08/29/2024 10:00 AM EST [facility] [address] [facility] [phone] Tom Hernandez MD [address] [place] [address] 08/30/2024 10:30 AM EST Office Visit Cardiology, [facility] [address] [facility] [address] [facility] Gerber[facility] [address] [facility] [address] 09/06/2024 10:40 AM EST Office Visit Family Medicine [address] [place] [phone] Patrick Crawley MD [address] [place] [address] [place] [phone] Health Maintenance Due Date Last Done Comments [...] filedocumented as of this encounter Care Teams Orientation And Mobility Instructor Relationship Specialty Start Date End Date Patrick Crawley MD [address] [place] [address] [place] [phone] PCP - General Family Medicine 01/24/24 documented as of this encounter
--- NOTE | 2024-11-17 12:25 | CT Scan Report ---
CT hip LT wo con CLINICAL HISTORY: left hip pain and swelling COMPARISON STUDY: X-ray earlier today FINDINGS: There is osteopenia. There are minimal degenerative changes at the left hip. No fracture or dislocation seen. No significant soft tissue hematoma or abscess. There are atherosclerotic calcific ations. No evidence of osteomyelitis. IMPRESSION: No fracture seen. ACT 112: Negative or not required by law. Electronically signed by: Franko Coombs M.D. 11/17/2024 12:23 PM
[2024-11-17] MEDS: ONDANSETRON INJ 2 MG/ML 2 ML VIAL IV STA (12:33)
[2024-11-17] MEDS: HYDROmorphone INJ 0.5 MG/0.5 ML SYR IV PRN (12:33)
--- NOTE | 2024-11-17 13:16 | History & Physical Report ---
Date of Service November 17, 2024 Assessment & Plan (1) Acute pain of left hip: (2) Ambulatory dysfunction: Plan: Alberto Andre is an 79y/o M with PMHx significant for pulmonary nodules, COPD, pulmonary hypertension, chronic A-fib anticoagulated on warfarin, HTN, CAD, AV regurgitation, MV regurgitation, TV regurgitation, GERD without esophagitis, history of nonmelanoma skin cancer, CKD stage II, history of kidney stones and BPH with LUTS who presented to the ED via EMS for evaluation of ambulatory dysfunction 2/2 acute pain of L hip. Notable TTP of L hip and L low back region on exam. L hip XR without evidence of fracture or dislocation. L hip CT with noted osteopenia and mild degenerative changes but again no fracture or dislocation seen. Lumbar spine CT with moderate multilevel degenerative spondylosis of the lumbar spine with multilevel central canal and neural foraminal stenosis, which is most pronounced and severe bilaterally at L5-S1 with compression of both exiting L5 nerves. Cannot have MRI 2/2 known metal scrap piece in his one eye. WBC count elevated slightly at 12.49k however suspect this is reactive 2/2 pain. Procalcitonin negative. UA unremarkable. Continue PRN pain control. Utilize topical lidocaine patch. Appreciate both ortho and ortho spine consults. May benefit from pain management consult. PT/OT evaluations. Can utilize Bonilla catheter for now 2/2 limited mobility ISO pain. Scheduled bowel regimen. (3) Atrial fibrillation: (4) Chronic anticoagulation: Plan: Chronic A-fib anticoagulated on warfarin. A-fib noted on EKG and telemetry in the ED. INR slightly supratherapeutic at 3.2 on admission. Hold warfarin for now and repeat INR in AM. Continue telemetry monitoring for now 2/2 mild tachycardia. (5) Pulmonary HTN: (6) Valvular disease: Plan: Follows with Dr. Gerber as an outpatient at [facility]. TTE from March 2024 with the following findings: normal LVEF of 55-59%, moderately increased concentric LV wall thickness, abnormal septal motion consistent with right ventricular pressure and volume overload, severely dilated right ventricular cavity, moderately reduced right ventricular systolic function, diffuse right ventricular hypokinesis, severe biatrial enlargement, severe mitral regurgitation, severe tricuspid regurgitation and pulmonary hypertension with estimated pulmonary artery systolic pressure of 68mmHg. Also had mildly abnormal nuclear stress testing in March 2024 demonstrating small apical infarct with mild tom-infarct ischemia involving the apex and apical anterior wall. Ischemic burden of approximately 7%. Underwent cardiac catheterization (LHC/RHC) in September 2024 to define the coronary anatomy in anticipation of valve interventions. Noted hemodynamically insignificant CAD. RHC findings consistent with precapillary pulmonary HTN ISO chronic lung disease. Updated LAINA in September 2024 LVEF of 55-59%, no LV segmental wall motion abnormalities, severely dilated right ventricular cavity, moderately Doose right ventricular systolic function, moderate aortic valve regurgitation, severe mitral regurgitation, severe tricuspid regurgitation and mildly enlarged aortic root. (7) Bilateral lower extremity edema: (8) Venous stasis dermatitis of both lower extremities: Plan: Chronic, well-controlled on current diuretic regimen. Check daily weights. BLE venous stasis changes noted as well. AmLactin cream ordered to apply to BLE BID. (9) COPD (chronic obstructive pulmonary disease): Plan: Has followed with [facility] pulmonology in the past. Stable/no acute exac erbation. Continue PRN albuterol inhaler. (10) Hypertension: Plan: BP stable. Continue lisinopril. Routine BP monitoring. 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 Utilize SCDs/TEDs. Code Status: FULL CODE PCP: Patrick Crawley MD Disposition: Admit to Med/Telemetry for further inpatient evaluation and management. Patient seen in collaboration with Dr. Kennedy. Please see addendum. I spent a total of 55 minutes coordinating, documenting, and providing care for this patient excluding time spent in the performance of separately billed services or time spent by another provider/QHP. This included personally reviewing all current laboratories and imaging studies, medical reconciliation, outpatient chart review and discussion with specialists. This chart was completed in part utilizing Speech Voice Recognition Software. Grammatical errors, random word insertions, pronoun errors, and incomplete sentences are an occasional consequence of this system due to software limitations, ambient noise, and hardware issues. Any formal questions or concerns about the content, text, or information contained within the body of this dictation should be directly addressed to the provider for clarification. History of Present Illness Chief Complaint: Left Hip Pain Primary Care Provider: Patrick Crawley MD Alberto Andre is an 79y/o M with PMHx significant for pulmonary nodules, COPD, pulmonary hypertension, chronic A-fib anticoagulated on warfarin, HTN, CAD, AV regurgitation, MV regurgitation, TV regurgitation, GERD without esophagitis, history of nonmelanoma skin cancer, CKD stage II, history of kidney stones and BPH with LUTS who presented to the ED via EMS for evaluation of L hip pain. History obtained from the patient, family at bedside and associated chart review. Has been experiencing L hip pain for the past week. Was seen by his PCP on 11/14/24. Diagnosed with sciatic nerve pain and prescribed prednisone taper course. No prior history of sciatica. Notes compliance with prednisone taper course. However, he was attempting to tie his L shoe yesterday when he felt a "popping" sensation in his L hip. Since then, he has been unable to tolerate bearing weight on his LLE due to pain. Pain radiates all the way down the LLE directly from the L hip. Does have some chronic lower back pain but no prior history of spinal surgery. No history of any hip surgeries either. L hip XR without evidence of fracture or dislocation. L hip CT with noted osteopenia and mild degenerative changes but again no fracture or dislocation seen. Also no significant soft tissue hematoma/abscess and no evidence of osteomyelitis. Labs personally reviewed. WBC count elevated slightly at 12.49k however suspect this is reactive 2/2 pain. INR slightly supratherapeutic at 3.2, electrolytes stable. S/p 50mcg IV fentanyl x 2 via EMS en route to ED. Received 0.25mg IV Dilaudid in ED. Pain improved at rest upon evaluation. Did have some nausea in the ED but this resolved s/p dose of IV Zofran. Was unable to tolerate po intake this morning 2/2 pain and nausea. No reported episodes of vomiting. Denies any SOB or chest pain. Maintaining bowel and bladder control. No weakness or numbness/tingling in LLE. Notes he CANNOT have an MRI due to having a piece of metal in his eye. 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 Allergies Allergy/AdvReac Type Severity Reaction Status Date / Time prednisone Allergy Intermediate SWELLING,SICK Verified 08/01/24 13:19 TO STOMACH chocolate flavor Allergy Mild Rash Verified 08/01/24 13:19 petrolatum,white Allergy Mild Redness of Verified 11/20/24 13:19 [From Vaseline] Skin atenolol AdvReac Mild Hypertensio Verified 08/01/24 13:19 n strawberry AdvReac Mild Rash Verified 08/01/24 13:19 Home Medications Medication Instructions Recorded Confirmed Type lisinopril 40 mg tablet 40 mg PO QAM 06/14/18 11/17/24 History [id number] 300 mcg-K 60 1 tab PO QAM 06/22/18 11/17/24 History mcg-lycop 600 mcg-lutein 300 mcg tablet (Centrum Silver Men) triamcinolone acetonide 0.1 % 1 applic topical BID PRN Rash on 06/22/18 11/17/24 History topical cream BLE albuterol sulfate 90 mcg/actuation 2 puff inhalation Q4 PRN wheezing 02/21/22 11/17/24 History aerosol inhaler or dyspnea warfarin 5 mg tablet See Rx Instructions .Route .COMPLEX 02/21/22 11/17/24 History spironolactone 25 mg tablet 12.5 mg PO DAILY 07/20/23 11/17/24 History torsemide 20 mg tablet 20 mg PO DAILY 07/20/23 11/17/24 History Lactobacillus acidophilus 1,000 mmu cells PO DAILY 11/17/24 11/17/24 History apple cider vinegar 300 mg tablet 300 mg PO TID 11/17/24 11/17/24 History ascorbic acid (vitamin C) 500 mg 500 mg PO DAILY 11/17/24 11/17/24 History tablet (Vitamin C With Corin Hips) cholecalciferol (vitamin D3) 10 10 mcg PO DAILY 11/17/24 11/17/24 History mcg (400 unit) tablet (Vitamin D3) glucosamine sulfate 1,000 mg tablet 1,000 mg PO QAM 11/17/24 11/17/24 History omeprazole 20 mg capsule,delayed 20 mg PO DAILY 11/17/24 11/17/24 History release selenium 50 mcg tablet 50 mcg PO DAILY 11/17/24 11/17/24 History zinc 50 mg tablet 50 mg PO DAILY 11/17/24 11/17/24 History Past Med/Surg History Problem List COPD (chronic obstructive pulmonary disease) Venous stasis dermatitis of both lower extremities Bilateral lower extremity edema Ambulatory dysfunction Acute pain of left hip (Acute) Kidney stones Reflux (Chronic) Osteoarthritis (Chronic) Hypertensive urgency (Acute) Rotator cuff tear Weakness (Acute) Encounter for pre-operative examination Right ureteral stone (Acute) Smoker Encounter for pre-operative examination Flank Pain (Acute) Congestive heart failure Lung disease emphysema and fibrotic changes on chest CT - 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 Physical Exam Physical Exam: General: Elderly M, laying down in bed. Appears uncomfortable with movement. A+Ox3. Family at bedside. HEENT: Normocephalic, atraumatic. Conjunctivae normal. External ear and nose normal, oropharynx normal. Respiratory: Normal respiratory effort, lungs clear to auscultation bilaterally. No accessory muscle use. Cardiovascular: Mildly tachycardic rate. Irregularly irregular rhythm. Trace BLE edema. BLE venous stasis changes. Abdomen/GI: Normoactive bowel sounds, soft, nondistended. Nontender to palpation in all quadrants. Extremities/Musculoskeletal: + TTP of L hip and L low back. Unable to actively lift LLE off bed 2/2 pain. Neurologic: No overt focal deficits, CN's II-XI not formally tested but appear grossly intact bilaterally. Results & Data Results & Data Vital Signs (Past 12 Hours) Vital Signs Temp Pulse Pulse Resp BP Pulse Ox O2 Del Method 11/17/24 11:08 36.7 C 100 H 18 132/80 91 Room Air 11/17/24 11:07 99 H Laboratory Results Short CBC 11/17/24 Range/Units 11:20 WBC 12.49 H (4.8-10.8) K/ul Hgb 13.2 L (14.0-18.0) g/dl Hct 38.4 L (42.0-52.0) % Plt Count 191 (130-400) K/uL BMP 11/17/24 11:20 Sodium 135 L Potassium 4.5 Chloride 104 Carbon Dioxide 27 BUN 23 Creatinine 0.95 Glucose 92 Calcium 9.4 Liver Function 11/17/24 Range/Units 11:20 Total Bilirubin 1.2 H (0.2-1.0) mg/dl AST 30 (13-39) U/L ALT 26 (7-52) U/L Alkaline Phosphatase 81 (34-104) U/L Albumin 4.2 (3.4-5.0) gm/dl Diagnostic Findings Hip X-Ray 11/17/24 11:12 XR hip LT min 2V CLINICAL HISTORY: left hip pain COMPARISON: None FINDINGS: There are atherosclerotic calcifications. No fracture or dislocation seen. No significant degenerative change of the left hip. IMPRESSION: No fracture seen. ACT 112: Negative or not required by law. Electronically signed by: Frakno Coombs M.D. 11/17/2024 11:[address] 11/17/24 11:44 CT hip LT wo con CLINICAL HISTORY: left hip pain and swelling COMPARISON STUDY: X-ray earlier today FINDINGS: There is osteopenia. There are minimal degenerative changes at the left hip. No fracture or dislocation seen. No significant soft tissue hematoma or abscess. There are atherosclerotic calcifications. No evidence of osteomyelitis. IMPRESSION: No fracture seen. ACT 112: Negative or not required by law. Electronically signed by: Franko Coombs M.D. 11/17/2024 12:23 PM Medications Administered Hydromorphone HCl (Hydromorphone Inj 0.5 Mg/0.5 Ml Syr) 0.25 mg IV Q15M PRN PRN Reason: Pain Stop: 12/01/24 12:26 Last Admin: 11/17/24 12:33 Dose: 0.25 mg Documented By: NENO Discontinued Medications Ondansetron HCl (Ondansetron Inj 2 Mg/Ml 2 Ml Vial) 4 mg IV NOW STA Stop: 11/17/24 12:28 Last Admin: 11/17/24 12:33 Dose: 4 mg Documented By: NENO Code Status & VTE Plan Code Status FULL CODE Supervising Physician Co-Signing Physician Notes Attending Addendum: Case reviewed with the advanced practitioner. I have personally performed a history and physical examination on the patient. I have reviewed the advanced practitioner's documentation on the date of service referenced in note, and I agree with, and take responsibility for the plan of care. please refer to her notes for full details patient seen and examined, records reviewed by myself as well on exam, patient Seen resting in bed, not in distress, uncomfortable due to left hip pain, worsened after going for a CT scan of the lumbar spine Pain radiates to the left lower extremity Denies paresthesias, numbness no other symptoms VS noted and reviewed oriented x3, not in distress, speaks in sentences with no effort nor accessory muscle use normal rate, regular rhythm, no murmurs clear breath sounds bilaterally non distended, soft, nontender Left lower extremity: No edema/warmth/tenderness, good pulses Full range of motion due to severe pain Right lower extremity: Essentially normal no neuro deficits all labs, imaging noted and reviewed ASSESSMENT AND PLAN> Left lower back, hip pain with ambulatory dysfunction Moderate to severe lumbar spinal stenosis, neuroforaminal stenosis L5-S1 Failed outpatient prednisone taper Pain control with Tylenol 1 g every 8 hours, as needed oxycodone, morphine, Dilaudid Avoiding NSAIDs due to CKD Orthospine consult CT scan left hip: Mild degenerative disease Unable to obtain MRI due to metallic object in the eye Ortho consulted May need pain management service consult PT/OT Incidental findings on CT scan Moderate atherosclerotic vascular disease. Ectasia of the abdominal aorta and common iliac arteries. Left nephrolithiasis with a 0.4 cm stone. Extensive colonic diverticulosis. Lung bases are clear. Further evaluation and management as an outpatient other diagnoses and plan of care as per advanced practitioner's notes I spent a total of 35 minutes coordinating, documenting, and providing care for this patient, excluding time spent in the performance of separately billed services or time spent by another provider/QHP. Minesh Kennedy MD (3) Atrial fibrillation Atrial fibrillation type: unspecified Qualified Code(s): I48.91 - Unspecified atrial fibrillation (9) COPD (chronic obstructive pulmonary disease) COPD type: unspecified COPD Qualified Code(s): J44.9 - Chronic obstructive pulmonary disease, unspecified (10) Hypertension Hypertension type: unspecified Qualified Code(s): I10 - Essential (primary) hypertension
[2024-11-17 14:46] LABS: Appearance Urine Clear (Clear); Bilirubin Urine Negative (Negative); Blood Urine Negative (Negative); Color Urine Yellow; Glucose Urine UA Negative (Negative); Ketones Urine Negative (Negative); Leukocyte Esterase Urine Negative (Negative); Nitrite Urine Negative (Negative); Protein Urine Negative (Negative); Specific Gravity Urine 1.014 (1.000-1.030); Urobilinogen Urine Negative (Negative); pH Urine 5.5 (4.5-7.5)
--- NOTE | 2024-11-17 14:59 | CT Scan Report ---
HISTORY: Lower back pain radiating down the left hip leg. TECHNIQUE: Helical CT imaging of the lumbar spine was performed without the use of IV contrast. Images are presented in axial, sagittal, and coronal reformats. COMPARISON: None. FINDINGS: Lumbar spine alignment is maintained. No significant listhesis is seen. The vertebral body heights are preserved without compression deformity. Multilevel degenerative disc disease is most pronounced and moderate at L5-S1. There is multilevel lumbar facet arthrosis. Multilevel central canal stenosis related to posterior disc osteophyte complex, which is most pronounced and moderate at L2-3-4. There is multilevel bilateral neural foraminal stenosis, which is most pronounced and severe bilaterally at L5-S1 with compression of both exiting L5 nerves. Moderate atherosclerotic vascular disease. Ectasia of the abdominal aorta and common iliac arteries. Left nephrolithiasis with a 0.4 cm stone. Extensive colonic diverticulosis. Lung bases are clear. IMPRESSION: 1. No acute osseous abnormality. 2. Moderate multilevel degenerative spondylosis of the lumbar spine with multilevel central canal and neuroforaminal stenosis. Lumbar spine MRI could be considered for more sensitive evaluation of the degree of canal and foraminal stenosis 3. Colonic diverticulosis. Left nephrolithiasis. Electronically signed by Brody Love 11-17-2024 2:59 PM
[2024-11-17] MEDS ORDERED: POLYETHYLENE (MIRALAX) 17 GM PACK PO PRN (15:36)
[2024-11-17] MEDS ORDERED: MAGNESIUM HYDROXIDE SUSP 30 ML UDC PO PRN (15:36)
[2024-11-17] MEDS ORDERED: PROMETHAZINE 6.25 MG/50.25 ML BAG IV PRN (15:36)
[2024-11-17] MEDS: HYDROmorphone INJ 1 MG/ML SYRINGE IV PRN (17:27)
[2024-11-17] MEDS: LIDOCAINE 5% 1 PATCH TD SCH (18:00)
[2024-11-17] MEDS: ACETAMINOPHEN 500 MG TAB PO SCH (18:00)
[2024-11-17] MEDS: MoRPHine SULFATE 2 MG/ML CARP IV PRN (19:19)
--- NOTE | 2024-11-17 19:31 | Orthopedic Consultation ---
Date of Consultation November 17, 2024 Assessment & Plan (1) Trochanteric bursitis, left hip: (2) Acute pain of left hip: (3) Ambulatory dysfunction: (4) COPD (chronic obstructive pulmonary disease): (5) Degenerative lumbar spinal stenosis: (6) Congestive heart failure: (7) Hyponatremia: (8) Smoker: (9) Pulmonary HTN: (10) GERD (gastroesophageal reflux disease): (11) Atrial fibrillation: (12) Hypertension: Plan Alberto is an 79-year-old gentleman who presents today for evaluation of his left hip. He has been having left hip pain for the last week, but it recently became a little bit worse. He denies any falls. He denies any trauma to the region. The patient's history, physical exam, imaging findings are most consistent with trochanteric bursitis of the patient's left hip as well as degenerative changes in his lumbar spine. I believe that these 2 pieces are interrelated and they are causing the pain that the patient is experiencing on his left hip and his left leg. I do long discussion the patient regarding the nature of these diagnoses. We discussed in great detail the pathoanatomy, pathophysiology, treatment options. Patient does have a spine consult ordered and will wait to see what their recommendations are, however for the trochanteric bursitis, my recommendation for the patient is anti-inflammatory medications and physical therapy. Per the medicine note, the patient has a history of CKD, however his creatinine is 0.95 and clearance is 64 mL/min. Would defer to the medical team with this regard. Patient has previously had prednisone taper, but this may be helpful as well.If the pain does continue, a trochanteric bursal injection of steroids may be indicated, however the risks of doing that in an inpatient setting I think are quite high and this is ordinarily reserved for outpatient therapy. Do recommend physical therapy with attempted ambulation as there are no signs of hip fracture on the patient's imaging or with regards to his history or physical exam as he is not having any pain in his groin, does not have pain with logroll or heel strike, and denies any history of trauma. History of Present Illness Reason for Consultation: Left hip pain Attending Physician: Minesh Kennedy MD History of Present Illness This is an 79-year-old gentleman who presents to the hospital for 1 weeks worth of pain in his left hip. Patient notes that the pain is located laterally at his hip does extend around the back of his buttock and down his leg. He denies real numbness or tingling in the leg but does state that he has pain that goes all the way down. He states he has been dealing with this for the last week and it got significantly worse last evening. He has been able to walk since the pain started. He denies any falls or injuries. Allergies Allergy/AdvReac Type Severity Reaction Status Date / Time prednisone Allergy Intermediate SWELLING,SICK Verified 08/01/24 13:19 TO STOMACH chocolate flavor Allergy Mild Rash Verified 08/01/24 13:19 petrolatum,white Allergy Mild Redness of Verified 08/01/24 13:19 [From Vaseline] Skin atenolol AdvReac Mild Hypertensio Verified 08/01/24 13:19 n strawberry AdvReac Mild Rash Verified 08/01/24 13:19 Home Medications Medication Instructions Recorded Confirmed Type lisinopril 40 mg tablet 40 mg PO QAM 06/14/18 11/17/24 History [id number]-[id number]-llmpu 300 mcg-K 60 1 tab PO QAM 06/22/18 11/17/24 History mcg-lycop 600 mcg-lutein 300 mcg tablet (Centrum Silver Men) triamcinolone acetonide 0.1 % 1 applic topical BID PRN Rash on 06/22/18 11/17/24 History topical cream BLE albuterol sulfate 90 mcg/actuation 2 puff inhalation Q4 PRN wheezing 02/21/22 11/17/24 History aerosol inhaler or dyspnea warfarin 5 mg tablet See Rx Instructions .Route .COMPLEX 02/21/22 11/17/24 History spironolactone 25 mg tablet 12.5 mg PO DAILY 07/20/23 11/17/24 History torsemide 20 mg tablet 20 mg PO DAILY 07/20/23 11/17/24 History Lactobacillus acidophilus 1,000 mmu cells PO DAILY 11/17/24 11/17/24 History apple cider vinegar 300 mg tablet 300 mg PO TID 11/17/24 11/17/24 History ascorbic acid (vitamin C) 500 mg 500 mg PO DAILY 11/17/24 11/17/24 History tablet (Vitamin C With Corin Hips) cholecalciferol (vitamin D3) 10 10 mcg PO DAILY 11/17/24 11/17/24 History mcg (400 unit) tablet (Vitamin D3) glucosamine sulfate 1,000 mg tablet 1,000 mg PO QAM 11/17/24 11/17/24 History omeprazole 20 mg capsule,delayed 20 mg PO DAILY 11/17/24 11/17/24 History release selenium 50 mcg tablet 50 mcg PO DAILY 11/17/24 11/17/24 History zinc 50 mg tablet 50 mg PO DAILY 11/17/24 11/17/24 History Patient History Medical History Chronic anticoagulation GERD (gastroesophageal reflux disease) Pulmonary nodules Interstitial lung disease Pulmonary HTN SEVERE (PASP 68MMHG) Valvular disease MODERATE TO SEVERE AR, POSSIBLE SEVERE MR (NOT PRECISE), SEVERE TR PER 06/06/18 ECHO Retained metal fragment IN EYE (NO MRI) Atrial fibrillation CHRONIC/PERSISTENT S/P CARDIOVERSION (07/2016) - follows Dr. 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 He is also tender to palpation in the left lumbar paraspinal musculature as well as over the gluteal muscles. He has pain with straight leg raise. He has pain with resisted hip abduction. He is nontender to palpation that is near his ankle. He has no pain with heel strike. He has no pain with logroll. Results & Data Vital Signs (Past 12 Hours) Vital Signs Temp Pulse Pulse Resp BP BP BP 11/17/24 16:59 11/17/24 16:59 36.4 C L 82 20 125/70 11/17/24 16:00 85 17 116/74 11/17/24 15:36 83 19 11/17/24 15:30 106/68 11/17/24 15:00 78 14 11/17/24 15:00 110/56 L 11/17/24 15:00 110/56 L 11/17/24 15:00 110/56 L 11/17/24 14:39 81 15 11/17/24 14:30 124/92 11/17/24 14:30 124/92 11/17/24 14:18 85 13 11/17/24 14:06 106 H 17 11/17/24 14:01 119/68 11/17/24 14:01 119/68 11/17/24 13:45 85 17 11/17/24 13:36 81 15 11/17/24 13:30 115/74 11/17/24 13:00 88 21 127/78 11/17/24 11:08 36.7 C 100 H 18 132/80 11/17/24 11:07 99 H Pulse Ox O2 Del Method 11/17/24 16:59 Room Air 11/17/24 16:59 90 Room Air 11/17/24 16:00 95 11/17/24 15:36 90 11/17/24 15:30 11/17/24 15:00 95 11/17/24 15:00 11/17/24 15:00 11/17/24 15:00 11/17/24 14:39 93 11/17/24 14:30 11/17/24 14:30 11/17/24 14:18 96 11/17/24 14:06 11/17/24 14:01 11/17/24 14:01 11/17/24 13:45 97 11/17/24 13:36 96 11/17/24 13:30 11/17/24 13:00 94 11/17/24 11:08 91 Room Air 11/17/24 11:07 Diagnostic Findings X-rays of the left hip as well as CT scan of left hip personally interpreted and reviewed. These demonstrate no acute osseous abnormalities. The patient does have moderate degenerative changes noted of his left hip. CT scan of the lumbar spine personally interpreted and reviewed demonstrates degenerative changes within the lumbar spine and foraminal stenosis. (4) COPD (chronic obstructive pulmonary disease) COPD type: unspecified COPD Qualified Code(s): J44.9 - Chronic obstructive pulmonary disease, unspecified (11) Atrial fibrillation Atrial fibrillation type: unspecified Qualified Code(s): I48.91 - Unspecified atrial fibrillation (12) Hypertension Hypertension type: unspecified Qualified Code(s): I10 - Essential (primary) hypertension
[2024-11-17] MEDS: DOCUSATE SODIUM 100 MG CAP PO SCH (21:14)
[2024-11-17] MEDS: AMMONIUM LACTATE 12% LOTION 225 GM BTL EXT SCH (21:14)
--- NOTE | 2024-11-17 22:40 | Electrocardiogram Report ---
Test Reason : Blood Pressure : */* mmHG Vent. Rate : 83 BPM Atrial Rate : * BPM P-R Int : * ms QRS Dur : 120 ms QT Int : 398 ms P-R-T Axes : * 71 10 degrees QTcB Int : 467 ms Atrial fibrillation with premature ventricular or aberrantly conducted complexes Right bundle branch block Nonspecific ST and T wave abnormality Abnormal ECG When compared with ECG of 23-Mar-2022 11:56, Right bundle branch block is now Present Confirmed by Luis Alanis ([id number]) on 11/17/2024 10:39:25 PM Referred By: REFERRED SELF Confirmed By: Luis Alanis
[2024-11-18 07:19] LABS: Hematocrit (blood only) 34.5 % (42.0-52.0); Hemoglobin 11.6 g/dl (14.0-18.0); Mean Corpuscular Hemoglobin 33.6 pg (25.0-34.0); Mean Corpuscular Hgb Conc 33.6 g/dL (32.0-36.0); Mean Platelet Volume 9.4 fL (9.4-12.4); Platelet Count 179 K/uL (130-400); RDW Coefficient of Variation 14.1 % (11.5-14.5); RDW Standard Deviation 51.5 fL (36.4-46.3); Red Blood Count 3.45 M/uL (4.70-6.10); White Blood Count 10.04 K/ul (4.8-10.8)
[2024-11-18 07:21] LABS: Calcium 9.1 mg/dl (8.6-10.3); Creatinine Clr Calc Pharmacy 60.8 ml/min; Magnesium 1.6 mg/dl (1.7-2.4); Potassium 4.5 mmol/L (3.5-5.1)
[2024-11-18 07:42] LABS: INR 2.8 (0.9-1.1); Prothrombin Time 27.7 Seconds (9.0-12.0)
[2024-11-18] MEDS ORDERED: FAMOTIDINE 40 MG TABLET PO PRN (08:10)
[2024-11-18] MEDS ORDERED: FAMOTIDINE 20 MG TAB PO PRN (08:13)
[2024-11-18 08:30] LABS: Ferritin 45.1 ng/ml (8-388)
[2024-11-18] MEDS ORDERED: lisinopril 40 MG TAB PO SCH (09:00)
[2024-11-18] MEDS ORDERED: TORSEMIDE 20 MG TAB PO SCH (09:00)
[2024-11-18] MEDS ORDERED: SPIRONOLACTONE 12.5 MG TAB PO SCH (09:00)
[2024-11-18 09:01] LABS: Folate (Folic Acid),Ser orPlas > 22.30 ng/ml (>5.38)
[2024-11-18 09:02] LABS: Vitamin B12 482 pg/ml (180-914)
[2024-11-18] MEDS: PANTOprazole 40 MG TAB PO SCH (09:23)
[2024-11-18] MEDS: ASCORBIC ACID 500 MG TAB PO SCH (09:24)
[2024-11-18] MEDS: MULTIVITAMIN TAB PO SCH (09:24)
[2024-11-18] MEDS: CHOLECALCIFEROL 10 MCG (400 UNITS) TAB PO SCH (09:24)
[2024-11-18] MEDS: ADVANCED PROBIOTIC 625 MG CAPSULE PO SCH (09:24)
[2024-11-18] MEDS: predniSONE 20 MG TAB PO SCH (10:18)
[2024-11-18] MEDS: MAGNESIUM SULFATE / D5W 1 GM/100 ML BAG IV SCH (10:18)
--- NOTE | 2024-11-18 10:29 | Hospitalist Progress Note ---
Date of Service November 18, 2024 Assessment & Plan (1) Acute pain of left hip: (2) Ambulatory dysfunction: Plan: Alberto Andre is an 79y/o M with PMHx significant for pulmonary nodules, COPD, pulmonary hypertension, chronic A-fib anticoagulated on warfarin, HTN, CAD, AV regurgitation, MV regurgitation, TV regurgitation, GERD without esophagitis, history of nonmelanoma skin cancer, CKD stage II, history of kidney stones and BPH with LUTS who presented to the ED via EMS for evaluation of ambulatory dysfunction 2/2 acute pain of L hip. Notable TTP of L hip and L low back region on exam. L hip XR without evidence of fracture or dislocation. L hip CT with noted osteopenia and mild degenerative changes but again no fracture or dislocation seen. Lumbar spine CT with moderate multilevel degenerative spondylosis of the lumbar spine with multilevel central canal and neural foraminal stenosis, which is most pronounced and severe bilaterally at L5-S1 with compression of both exiting L5 nerves. Cannot have MRI 2/2 known metal scrap piece in his one eye; Leukocytosis resolved. Procalcitonin negative. UA unremarkable. Continue PRN pain control. Utilize topical lidocaine patch. Appreciate orthopedic surgery consultation. Suspect trochanteric bursitis. Starting oral prednisone taper. PT/OT evaluations. Pain is slightly improving however if any change may benefit from pain management consult. Appreciate orthopedic spinal surgery consult regarding lumbar spine CT findings. (3) Atrial fibrillation: (4) Chronic anticoagulation: Plan: Permanent A-fib anticoagulated on warfarin. Discontinue monitor technician as tachycardia resolved. INR 2.8 today, was previously supratherapeutic on admission. Usually on 2.5mg warfarin Tuesday/Tuesday/Tuesday and 5mg all other days. Will start today at 3mg daily and continue to monitor PT/INR. Follows with [facility] clinic as an outpatient. (5) Pulmonary HTN: (6) Valvular disease: Plan: Follows with Dr. Gerber as an outpatient at [facility]. TTE from March 2024 with the following findings: normal LVEF of 55-59%, moderately increased concentric LV wall thickness, abnormal septal motion consistent with right ventricular pressure and volume overload, severely dilated right ventricular cavity, moderately reduced right ventricular systolic function, diffuse right ventricular hypokinesis, severe biatrial enlargement, severe mitral regurgitation, severe tricuspid regurgitation and pulmonary hypertension with estimated pulmonary artery systolic pressure of 68mmHg. Also had mildly abnormal nuclear stress testing in March 2024 demonstrating small apical infarct with mild tom-infarct ischemia involving the apex and apical anterior wall. Ischemic burden of approximately 7%. Underwent cardiac catheterization (LHC/RHC) in September 2024 to define the coronary anatomy in anticipation of valve interventions. Noted hemodynamically insignificant CAD. RHC findings consistent with precapillary pulmonary HTN ISO chronic lung disease. Updated [facility]INA in September 2024 LVEF of 55-59%, no LV segmental wall motion abnormalities, severely dilated right ventricular cavity, moderately Doose right ventricular systolic function, moderate aortic valve regurgitation, severe mitral regurgitation, severe tricuspid regurgitation and mildly enlarged aortic root. Has an appointment with Dr. Lincoln Gomes (cardiothoracic surgeon) on 11/21/24. (7) Bilateral lower extremity edema: (8) Venous stasis dermatitis of both lower extremities: Plan: Weight stable. BP on lower side this morning. Hold home diuretics for the time being. No BLE edema this morning. BLE venous stasis changes noted. AmLactin cream ordered to apply to BLE BID. (9) COPD (chronic obstructive pulmonary disease): Plan: Has followed with [facility] pulmonology in the past. Stable/no acute exacerbation. Continue PRN albuterol inhaler. (10) Anemia: Plan: Hgb 11.6 this morning. Denies any signs/symptoms of bleeding. Will check routine anemia panel including ferritin, vitamin B12 and folate. (11) Hypomagnesemia: Plan: Mag 1.6 today, will replete with IV mag x 2 bags. Continue to monitor and replete PRN. (12) Hypertension: Plan: BP on lower side this morning. Hold lisinopril for now and continue routine BP monitoring. 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 Code Status: FULL CODE PCP: Patrick Crawley MD Disposition: Downgrading to Med/Surg, PT/OT evaluations pending to determine any discharge needs. Patient seen in collaboration with Dr. Arellano Please see addendum. I spent a total of 40 minutes coordinating, documenting, and providing care for this patient excluding time spent in the performance of separately billed services or time spent by another provider/QHP. This included personally reviewing all current laboratories and imaging studies, medical reconciliation, outpatient chart review and discussion with specialists. This chart was completed in part utilizing Speech Voice Recognition Software. Grammatical errors, random word insertions, pronoun errors, and incomplete sentences are an occasional consequence of this system due to software limitations, ambient noise, and hardware issues. Any formal questions or concerns about the content, text, or information contained within the body of this dictation should be directly addressed to the provider for clarification. Admission and Anticipated Discharge Date Admission Date: November 17, 2024 Supervising Physician Co-Signing Physician Notes Patient is seen and examined at bedside. Left hip pain is better today. Denies any chest pain, dyspnea, nausea, vomiting, abdominal pain. On exam patient is moderately built and nourished, no apparent distress, normocephalic atraumatic, EOMI, normal breath sounds, clear to auscultation, regular regular heart sounds, murmur, chronic venous stasis, no edema, abdomen soft, nontender, normal bowel sounds, alert, awake, oriented, grossly no focal deficits, left hip swelling, tenderness. Patient is admitted for management of left hip pain secondary to lumbar spinal stenosis with radiculopathy. Also thought to have left hip trochanteric bursitis. Appreciate orthopedics input. Continue prednisone taper course, Tylenol. Avoid NSAIDs due to CKD PT OT, fall precautions. Will need follow-up with orthopedics on discharge. I personally interviewed and examined the patient at bedside. I have reviewed the advanced practitioner's documentation on the date of service referred in note and agree with plan. Patient's care is coordinated with Katharine Noyola PA-C. Please refer to the documentation above for details of patient's presentation and for discussion of other issues. I spent a total of34 minutes coordinating, documenting, and providing care for this patient excluding time spent in the performance of separately billed services or time spent by another provider/QHP. Subjective Endorses some improvement of his left hip pain this morning. Mentions he slept well overnight. Denies any shortness of breath, chest pain or nausea/vomiting. BP on the lower side this morning but denies any lightheadedness/dizziness or visual changes. Uses the urinal without issue but would like to ambulate today and try going to the bathroom. Discussed his consultation with orthopedic surgery yesterday. Educated provided regarding trochanteric bursitis. Agreeable with starting prednisone taper today. Review of Systems Review of Systems: At least ten systems reviewed and negative, except as noted in the subjective section. Physical Exam Physical Exam: General: Elderly M, laying down in bed. Appears more comfortable today. A+Ox3, somewhat flat affect. HEENT: Normocephalic, atraumatic. Conjunctivae normal. External ear and nose normal, oropharynx normal. Respiratory: Normal respiratory effort, lungs clear to auscultation bilaterally but decreased throughout. Cardiovascular: Regular rate. Irregularly irregular rhythm. Trace/minimal BLE edema. BLE venous stasis dermatitis. Abdomen/GI: Normoactive bowel sounds, soft, nondistended. Nontender to palpation in all quadrants. Extremities/Musculoskeletal: + TTP of L hip and L low back. Unable to actively lift LLE off bed 2/2 pain. Neurologic: No overt focal deficits, CN's II-XI not formally tested but appear grossly intact bilaterally. Results & Data Results & Data Vital Signs (Past 12 Hours) Vital Signs Temp Pulse Pulse Resp BP Pulse Ox O2 Del Method 11/18/24 08:00 36.7 C 69 20 113/63 94 Room Air 11/18/24 05:16 36.6 C 84 18 95/53 L 93 Room Air 11/17/24 23:22 36.6 C 85 18 101/64 92 Room Air 11/17/24 21:47 76 Laboratory Results Short CBC 11/17/24 11/18/24 Range/Units 11:20 06:41 WBC 12.49 H 10.04 (4.8-10.8) K/ul Hgb 13.2 L 11.6 L (14.0-18.0) g/dl Hct 38.4 L 34.5 L (42.0-52.0) % Plt Count 191 179 (130-400) K/uL BMP 11/17/24 11/18/24 11:20 06:41 Sodium 135 L 135 L Potassium 4.5 4.5 Chloride 104 102 Carbon Dioxide 27 30 BUN 23 21 Creatinine 0.95 1.00 Glucose 92 93 Calcium 9.4 9.1 Liver Function 11/17/24 Range/Units 11:20 Total Bilirubin 1.2 H (0.2-1.0) mg/dl AST 30 (13-39) U/L ALT 26 (7-52) U/L Alkaline Phosphatase 81 (34-104) U/L Albumin 4.2 (3.4-5.0) gm/dl Urine 11/17/24 Range/Units 14:09 Urine Color Yellow Urine Appearance Clear (Clear) Urine pH 5.5 (4.5-7.5) Ur Specific [place] 1.014 (1.000-1.030) Urine Protein Negative (Negative) Urine Glucose (UA) Negative (Negative) (3) Atrial fibrillation Atrial fibrillation type: unspecified Qualified Code(s): I48.91 - Unspecified atrial fibrillation (9) COPD (chronic obstructive pulmonary disease) COPD type: unspecified COPD Qualified Code(s): J44.9 - Chronic obstructive pulmonary disease, unspecified (10) Anemia Anemia type: unspecified type Qualified Code(s): D64.9 - Anemia, unspecified (12) Hypertension Hypertension type: unspecified Qualified Code(s): I10 - Essential (primary) hypertension
--- NOTE | 2024-11-18 11:41 | Orthopedic Consultation ---
Date of Service November 18, 2024 Assessment & Plan (1) Degenerative lumbar spinal stenosis: History of Present Illness Reason for Consultation: Pain in the left hip and left thigh. Requesting Physician: . Attending Physician: Carlton Arellano MD 79y/o M with PMHx significant for pulmonary nodules, COPD, pulmonary hypertension, chronic A-fib anticoagulated on warfarin, HTN, CAD, AV regurgitation, MV regurgitation, TV regurgitation, GERD without esophagitis, history of nonmelanoma skin cancer, CKD stage II, history of kidney stones and BPH with LUTS who presented to the ED via EMS for evaluation of ambulatory dysfunction 2/2 acute pain of L hip. Patient states that the symptoms began approximately on 14 November, he started on a taper dose steroid but it worsened 2 days later to the point of necessitating evaluation in the emergency room. The pain primarily is in the left buttock region just behind the trochanteric area, but he does note that he would radiate into his thigh to the knee anterolaterally. He denies that the symptoms radiate below the knee on the left, and he has no right lower extremity symptomatology. It is improved as of this morning on the , he notes to me that he has an upcoming appointment regarding a heart valve on November 21 in [place]. Exam reveals the patient indicate pain in the left buttock region a pain patch is present. He has some minor trochanteric tenderness, he has appropriate range of motion of the left hip. He has intact strength in both lower extremities to EHL plantarflexion ankle dorsiflexion, knee extension and flexion, hip flexion, negative straight leg raise. Lumbar CT scan November 17, [address] imaging of the lumbar spine was performed without the use of IV contrast. Images are presented in axial, sagittal, and coronal reformats. COMPARISON: None. FINDINGS: Lumbar spine alignment is maintained. No significant listhesis is seen. The vertebral body heights are preserved without compression deformity. Multilevel degenerative disc disease is most pronounced and moderate at L5-S1. There is multilevel lumbar facet arthrosis. Multilevel central canal stenosis related to posterior disc osteophyte complex, which is most pronounced and moderate at L2-3-4. There is multilevel bilateral neural foraminal stenosis, which is most pronounced and severe bilaterally at L5-S1 with compression of both exiting L5 nerves. Moderate atherosclerotic vascular disease. Ectasia of the abdominal aorta and common iliac arteries. Left nephrolithiasis with a 0.4 cm stone. Extensive colonic diverticulosis. Lung bases are clear. IMPRESSION: 1. No acute osseous abnormality. 2. Moderate multilevel degenerative spondylosis of the lumbar spine with multilevel central canal and neuroforaminal stenosis. Lumbar spine MRI could be considered for more sensitive evaluation of the degree of canal and foraminal stenosis 3. Colonic diverticulosis. Left nephrolithiasis. CT scan images of the lumbar spine from November 17, 2024 from [facility] were reviewed, is my separate interpretation, this reveals the patient to have multilevel degenerative changes throughout the lumbar spine proper alignment is maintained, there is some foraminal stenosis at L5-S1 to a lesser degree at the more cephalad levels, no instability, no fracture noted. Impression: Pain rating to left buttock with degenerative changes lumbar spine, very possibly referred pain from the lumbar spine to the left buttock region with some symptoms consistent with nerve compression/radiculopathy. Plan: In talking with the patient, I related that certainly as he is improved continue with appropriate medications, and mobilize with physical therapy. If the symptoms resolve, would recommend physical therapy, but certainly the patient can follow-up in the office in the upcoming weeks to discuss any remaining symptoms and/or treatment options, he was in agreement with this plan. Allergies Allergy/AdvReac Type Severity Reaction Status Date / Time prednisone Allergy Intermediate SWELLING,SICK Verified 08/01/24 13:19 TO STOMACH chocolate flavor Allergy Mild Rash Verified 08/01/24 13:19 petrolatum,white Allergy Mild Redness of Verified 08/01/24 13:19 [From Vaseline] Skin atenolol AdvReac Mild Hypertensio Verified 08/01/24 13:19 n strawberry AdvReac Mild Rash Verified 08/01/24 13:19 Home Medications Medication Instructions Recorded Confirmed Type lisinopril 40 mg tablet 40 mg PO QAM 06/14/18 11/17/24 History lkilybfk-vs-intfm 300 mcg-K 60 1 tab PO QAM 06/22/18 11/17/24 History mcg-lycop 600 mcg-lutein 300 mcg tablet (Centrum Silver Men) triamcinolone acetonide 0.1 % 1 applic topical BID PRN Rash on 06/22/18 11/17/24 History topical cream BLE albuterol sulfate 90 mcg/actuation 2 puff inhalation Q4 PRN wheezing 06/12/22 03/08/25 History aerosol inhaler or dyspnea warfarin 5 mg tablet See Rx Instructions .Route .COMPLEX 02/21/22 11/17/24 History spironolactone 25 mg tablet 12.5 mg PO DAILY 07/20/23 11/17/24 History torsemide 20 mg tablet 20 mg PO DAILY 07/20/23 11/17/24 History Lactobacillus acidophilus 1,000 mmu cells PO DAILY 11/17/24 11/17/24 History apple cider vinegar 300 mg tablet 300 mg PO TID 11/17/24 11/17/24 History ascorbic acid (vitamin C) 500 mg 500 mg PO DAILY 11/17/24 11/17/24 History tablet (Vitamin C With Corin Hips) cholecalciferol (vitamin D3) 10 10 mcg PO DAILY 11/17/24 11/17/24 History mcg (400 unit) tablet (Vitamin D3) glucosamine sulfate 1,000 mg tablet 1,000 mg PO QAM 11/17/24 11/17/24 History omeprazole 20 mg capsule,delayed 20 mg PO DAILY 11/17/24 11/17/24 History release selenium 50 mcg tablet 50 mcg PO DAILY 11/17/24 11/17/24 History zinc 50 mg tablet 50 mg PO DAILY 11/17/24 11/17/24 History Past Med/Surg History Problem List (Updated 11/18/24 @ 11:14 by Katharine Noyola PA-C) Hypomagnesemia Anemia Degenerative lumbar spinal stenosis Trochanteric bursitis, left hip COPD (chronic obstructive pulmonary disease) Venous stasis dermatitis of both lower extremities Bilateral lower extremity edema Ambulatory dysfunction Acute pain of left hip (Acute) Kidney stones Reflux (Chronic) Osteoarthritis (Chronic) Hypertensive urgency (Acute) Rotator cuff tear Weakness (Acute) Encounter for pre-operative examination Right ureteral stone (Acute) Smoker Encounter for pre-operative examination Flank Pain (Acute) Congestive heart failure Lung disease emphysema and fibrotic changes on chest CT - Does not follow clinical staff rn Hyponatremia Medical History Chronic anticoagulation GERD (gastroesophageal reflux disease) Pulmonary nodules Interstitial lung disease Pulmonary HTN SEVERE (PASP 68MMHG) Valvular disease MODERATE TO SEVERE AR, POSSIBLE SEVERE MR (NOT PRECISE), SEVERE TR PER 06/06/18 ECHO Retained metal fragment IN EYE (NO MRI) Atrial fibrillation CHRONIC/PERSISTENT S/P CARDIOVERSION (07/2016) - follows Dr. Gerber yearly Hypertension Surgical History Hx of removal of cyst pilonidial cyst History of cystoscopy with stent placement History of repair of rotator cuff AND BICEP REPAIR (RIGHT) History of cataract surgery BILATERAL Family History Father Family history of diabetes mellitus Social History Smoking Status: Current every day smoker Tobacco Type: Cigars Cigarettes Per Day: 3; Second Hand Exposure: No; Do You Dip or Chew Tobacco: No; Hx Alcohol Use: No Hx Substance Use: No Preferred Language: Persian Communication Ability: Effective Leg Breaker Required: No Beliefs That Will Affect Care: None marital status: Current Living Situation: Spouse How many Children do You have: 2 Feels Safe at Home: Yes Assistive Devices: Denture - Upper, Denture - Lower and Glasses Review of Systems All systems reviewed & are unremarkable except as noted in HPI & below. Physical Exam . Results & Data Results & Data Laboratory Results . Diagnostic Findings . PG Care Time/CCT Total # of Minutes Spent Total Time Spent with Patient: Total time spent is greater than 50% in coordination of care (as documented) at patient's floor/unit and/or counseling patient: Coding Level of Care Code 58191 IN/OBS CONSULT LVL 3,45M Diagnoses Degenerative lumbar spinal stenosis M48.061
[2024-11-18] MEDS: WARFARIN SOD 3 MG TAB PO SCH (16:35)
[2024-11-18] MEDS: oxyCODONE HCL IR 5 MG TAB (IMMEDIATE RELEASE) PO PRN (21:46)
[2024-11-18 23:01] VITALS: RESP 18
[2024-11-19 06:13] LABS: Hematocrit (blood only) 33.4 % (42.0-52.0); Hemoglobin 11.4 g/dl (14.0-18.0); Mean Corpuscular Hemoglobin 32.9 pg (25.0-34.0); Mean Corpuscular Hgb Conc 34.1 g/dL (32.0-36.0); Mean Corpuscular Volume 96.3 fL (80.0-100.0); Mean Platelet Volume 9.3 fL (9.4-12.4); Platelet Count 182 K/uL (130-400); RDW Coefficient of Variation 13.9 % (11.5-14.5); RDW Standard Deviation 49.1 fL (36.4-46.3); Red Blood Count 3.47 M/uL (4.70-6.10); White Blood Count 12.24 K/ul (4.8-10.8)
[2024-11-19 06:14] LABS: Creatinine Clr Calc Pharmacy 63.4 ml/min; Magnesium 2.1 mg/dl (1.7-2.4); Potassium 4.6 mmol/L (3.5-5.1)
[2024-11-19 06:28] LABS: INR 2.2 (0.9-1.1); Prothrombin Time 22.7 Seconds (9.0-12.0)
[2024-11-19 07:43] VITALS: BP 138/70; PULSE 95; TEMP 98.4; O2SAT 96
--- NOTE | 2024-11-19 11:09 | Hospitalist Progress Note ---
Date of Service November 19, 2024 Assessment & Plan (1) Acute pain of left hip: (2) Ambulatory dysfunction: Plan: Alberto Andre is an 79y/o M with PMHx significant for pulmonary nodules, COPD, pulmonary hypertension, chronic A-fib anticoagulated on warfarin, HTN, CAD, AV regurgitation, MV regurgitation, TV regurgitation, GERD without esophagitis, history of nonmelanoma skin cancer, CKD stage II, history of kidney stones and BPH with LUTS who presented to the ED via EMS for evaluation of ambulatory dysfunction 2/2 acute pain of L hip. Notable TTP of L hip and L low back region on exam. L hip XR without evidence of fracture or dislocation. L hip CT with noted osteopenia and mild degenerative changes but again no fracture or dislocation seen. Lumbar spine CT with moderate multilevel degenerative spondylosis of the lumbar spine with multilevel central canal and neural foraminal stenosis, which is most pronounced and severe bilaterally at L5-S1 with compression of both exiting L5 nerves. Cannot have MRI 2/2 known metal scrap piece in his one eye; Leukocytosis resolved. Procalcitonin negative. UA unremarkable. Continue PRN pain control. Utilize topical lidocaine patch. Appreciate orthopedic surgery consultation. Suspect trochanteric bursitis. Starting oral prednisone taper. Pt sx improving, plan to d/c home later today (3) Atrial fibrillation: (4) Chronic anticoagulation: Plan: Permanent A-fib anticoagulated on warfarin. Discontinue property assessment monitor as tachycardia resolved. INR 2.2 today, was previously supratherapeutic on admission. Will resume home regimen. (5) Pulmonary HTN: (6) Valvular disease: Plan: Follows with Dr. Gerber as an outpatient at [facility]. TTE from March 2024 with the following findings: normal LVEF of 55-59%, moderately increased concentric LV wall thickness, abnormal septal motion consistent with right ventricular pressure and volume overload, severely dilated right ventricular cavity, moderately reduced right ventricular systolic function, diffuse right ventricular hypokinesis, severe biatrial enlargement, severe mitral regurgitation, severe tricuspid regurgitation and pulmonary hypertension with estimated pulmonary artery systolic pressure of 68mmHg. Also had mildly abnormal nuclear stress testing in March 2024 demonstrating small apical infarct with mild tom-infarct ischemia involving the apex and apical anterior wall. Ischemic burden of approximately 7%. Underwent cardiac catheterization (LHC/RHC) in September 2024 to define the coronary anatomy in anticipation of valve interventions. Noted hemodynamically insignificant CAD. RHC findings consistent with precapillary pulmonary HTN ISO chronic lung disease. Updated LAINA in September 2024 LVEF of 55-59%, no LV segmental wall motion abnormalities, severely dilated right ventricular cavity, moderately Doose right ventricular systolic function, moderate aortic valve regurgitation, severe mitral regurgitation, severe tricuspid regurgitation and mildly enlarged aortic root. Has an appointment with Dr. Lincoln Gomes (cardiothoracic surgeon) on 11/21/24. (7) Bilateral lower extremity edema: (8) Venous stasis dermatitis of both lower extremities: Plan: Weight stable. BP on lower side this morning. Will resume at discharge (9) COPD (chronic obstructive pulmonary disease): Plan: Has followed with [facility] pulmonology in the past. Stable/no acute exacerbation. Continue PRN albuterol inhaler. (10) Anemia: Plan: Hgb 11.6 this morning. Denies any signs/symptoms of bleeding. Will check routine anemia panel including ferritin, vitamin B12 and folate. 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 Code Status: FULL CODE PCP: Patrick Crawley MD Disposition: Downgrading to Med/Surg, Pt ready for discharge to home later today Patient seen in collaboration with Dr. Arellano Please see addendum. I spent a total of 41 minutes coordinating, documenting, and providing care for this patient excluding time spent in the performance of separately billed services or time spent by another provider/QHP. This included personally reviewing all current laboratories and imaging studies, medical reconciliation, outpatient chart review and discussion with specialists. Admission and Anticipated Discharge Date Admission Date: November 17, 2024 Supervising Physician Co-Signing Physician Notes Patient is seen and examined at bedside on day of discharge. Left hip pain, sw elling much improved. Did well with physical therapy evaluation this morning. No new complaints. Denies any chest pain, dyspnea, nausea, vomiting, abdominal pain. On exam patient is moderately built and nourished, no apparent distress, normocephalic atraumatic, EOMI, normal breath sounds, clear to auscultation, regular regular heart sounds, murmur, chronic venous stasis, no edema, abdomen soft, nontender, normal bowel sounds, alert, awake, oriented, grossly no focal deficits, left hip swelling, tenderness. Patient is admitted for management of left hip pain secondary to lumbar spinal stenosis with radiculopathy. Also thought to have left hip trochanteric bursitis. Appreciate orthopedics input. Clinically improving. Patient not interested in inpatient rehab placement. He prefers to continue outpatient physical therapy. Continue prednisone taper course, Tylenol. Avoid NSAIDs due to CKD . Continue outpatient PT. Advised to follow-up with orthopedics on discharge. I personally interviewed and examined the patient at bedside. I have reviewed the advanced practitioner's documentation on the date of service referred in note and agree with plan. Patient's care is coordinated with Yudy James PA-C. Please refer to the documentation above for details of patient's presentation and for discussion of other issues. I spent a total of32 minutes coordinating, documenting, and providing care for this patient excluding time spent in the performance of separately billed services or time spent by another provider/QHP. Subjective Pt was seen and examined in room 319. He states he is feeling 25% better. He feels his swelling and ROM to LLE has improved. He reports not sleeping well last night. He is moving bowels and a good appetite. He denies f/c/s, chest pain, sob, n/v. Review of Systems Review of Systems: All systems reviewed & are unremarkable except as noted in HPI & below Physical Exam Physical Exam: Gen: WD/WN, M, elderly, lying in bed, NAD, A&O x3 HEENT: Normocephalic, atraumatic, conjunctivae moist, sclerae anicteric, mucous membranes moist. Lung: Clear to Auscultation bilaterally, no wheezes/rales/rhonchi Heart: Regular rate, regular rhythm Abdomen: Soft, NT, ND +BS x 4 Extremities: No edema, L lateral thigh edema noted, no erythema, pain to palpation in the greater trochanter region Skin: Warm, no rash, negative turgor. Results & Data Results & Data Vital Signs (Past 12 Hours) Vital Signs Temp Pulse Resp BP BP Pulse Ox O2 Del Method 11/19/24 07:42 36.9 C 95 H 18 138/70 96 Room Air 11/18/24 23:23 36.4 C L 101 H 18 137/79 93 Room Air Laboratory Results I have independently reviewed and interpreted patient's cbc, bmp, mag Medications Administered Current Inpatient Medications Acetaminophen (Acetaminophen 500 Mg Tab) 1,000 mg PO Q8H REPLACED BY [facility] Stop: 12/17/24 15:59 Last Admin: 11/19/24 07:30 Dose: 1,000 mg Ascorbic Acid (Ascorbic Acid 500 Mg Tab) 500 mg PO DAILY [facility] Stop: 12/18/24 08:59 Last Admin: 11/19/24 09:37 Dose: 500 mg Docusate Sodium (Docusate Sodium 100 Mg Cap) 100 mg PO BID REPLACED BY [facility] Stop: 12/17/24 20:59 Last Admin: 11/19/24 09:39 Dose: Not Given Famotidine (Famotidine 20 Mg Tab) 20 mg PO BID PRN PRN Reason: Dyspepsia Stop: 12/18/24 08:09 Promethazine HCl (Phenergan) 6.25 mg in 50.25 mls @ 201 mls/hr IV Q6H PRN PRN Reason: Nausea And Vomiting Stop: 12/17/24 15:35 Lactic Acid (Ammonium Lactate 12% Lotion 225 Gm Btl) 1 gm EXT BID REPLACED BY [facility] Stop: 12/17/24 20:59 Last Admin: 11/19/24 09:35 Dose: 1 gm Lactobacillus Acidophilus (Advanced Probiotic 625 Mg Capsule) 1,250 mg PO DAILY REPLACED BY [facility] Stop: 12/18/24 08:59 Last Admin: 11/19/24 09:35 Dose: 1,250 mg Lidocaine (Lidocaine 5% 1 Patch) 1 patch TD QAM REPLACED BY [facility] Stop: 12/17/24 15:35 Last Admin: 11/19/24 07:30 Dose: 1 patch Lisinopril (Lisinopril 40 Mg Tab) 40 mg PO QAM REPLACED BY [facility] Stop: 12/18/24 08:59 Magnesium Hydroxide (Magnesium Hydroxide Susp 30 Ml Udc) 30 ml PO Q12H PRN PRN Reason: Constipation Stop: 12/17/24 15:35 Miscellaneous (Remove Lidoderm Patch) 1 each N/A DAILY@2100 REPLACED BY [facility] Stop: 12/17/24 23:29 Last Admin: 11/18/24 20:19 Dose: 1 each Morphine Sulfate (Morphine Sulfate 2 Mg/Ml Carp) 2 mg IV Q6H PRN PRN Reason: Severe Pain (Scale 7, 8, 9,10) Stop: 12/01/24 15:35 Last Admin: 11/18/24 01:22 Dose: 2 mg Multivitamins (Multivitamin Tab) 1 tab [facility] [place] Stop: 12/18/24 08:59 Last Admin: 11/19/24 09:36 Dose: 1 tab Oxycodone HCl (Oxycodone Hcl Ir 5 Mg Tab (Immediate Release)) 5 mg PO Q6H PRN PRN Reason: Mod-Sev Pain (Scale 4-10) Stop: 12/01/24 15:35 Last Admin: 11/18/24 21:46 Dose: 5 mg Pantoprazole Sodium (Pantoprazole 40 Mg Tab) 40 mg PO DAILY REPLACED BY [facility] Stop: 12/18/24 08:59 Last Admin: 11/19/24 09:37 Dose: 40 mg Polyethylene Glycol (Polyethylene (Miralax) 17 Gm Pack) 17 gm PO DAILY PRN PRN Reason: Constipation Stop: 12/17/24 15:35 Prednisone (Prednisone 20 Mg Tab) 40 mg PO [facility]; Taper Stop: 11/26/24 08:59 Last Admin: 11/19/24 09:38 Dose: 40 mg Spironolactone (Spironolactone 12.5 Mg Tab) 12.5 mg PO DAILY REPLACED BY [facility] Stop: 12/18/24 08:59 Torsemide (Torsemide 20 Mg Tab) 20 mg PO DAILY REPLACED BY [facility] Stop: 12/18/24 08:59 Vitamin D (Cholecalciferol 10 Mcg (400 Units) Tab) 10 mcg PO DAILY REPLACED BY [facility] Stop: 12/18/24 08:59 Last Admin: 11/19/24 09:36 Dose: 10 mcg Warfarin Sodium (Warfarin Sod 3 Mg Tab) 3 mg PO DAILY@1600 REPLACED BY [facility] Stop: 12/18/24 15:59 Last Admin: 11/18/24 16:35 Dose: 3 mg (3) Atrial fibrillation Atrial fibrillation type: unspecified Qualified Code(s): I48.91 - Unspecified atrial fibrillation (9) COPD (chronic obstructive pulmonary disease) COPD type: unspecified COPD Qualified Code(s): J44.9 - Chronic obstructive pulmonary disease, unspecified (10) Anemia Anemia type: unspecified type Qualified Code(s): D64.9 - Anemia, unspecified (12) Hypertension Hypertension type: unspecified Qualified Code(s): I10 - Essential (primary) hypertension
--- NOTE | 2024-11-19 11:58 | Discharge Summary ---
Discharge Summary Date of Service November 19, 2024 Principal Dx & Hospital Course #1 = Principal Diagnosis (1) Acute pain of left hip: (2) Ambulatory dysfunction: Alberto Andre is an 79y/o M with PMHx significant for pulmonary nodules, COPD, pulmonary hypertension, chronic A-fib anticoagulated on warfarin, HTN, CAD, AV regurgitation, MV regurgitation, TV regurgitation, GERD without esophagitis, history of nonmelanoma skin cancer, CKD stage II, history of kidney stones and BPH with LUTS who presented to the ED via EMS for evaluation of ambulatory dysfunction 2/2 acute pain of L hip. On admission pt had notable pain to palpation of L lateral hip hip and L low back region on exam. L hip XR without evidence of fracture or dislocation. L hip CT with noted osteopenia and mild degenerative changes but again no fracture or dislocation seen. Lumbar spine CT with moderate multilevel degenerative spondylosis of the lumbar spine with multilevel central canal and neural foraminal stenosis, which is most pronounced and severe bilaterally at L5-S1 with compression of both exiting L5 nerves. Cannot have MRI 2/2 known metal scrap piece in his one eye. He was seen and evaluted by orthopedics Dr. Briseno who felt sx consistent with trochanteric bursitis. He was started on an oral prednisone taper with improvement of symptoms. On day of discharge he worked with PT/OT who felt he was safe to return home. He had a rolling walker at home and is already scheduled with outpatient PT. On day of discharge he was in good spirits. He was eating/drinking well and moving bowels. He was hemodynmically stable. On admission his inr was supratherapeutic, but on day of discharge his INR was 2.2. We will continue all of his home medications and initiate prednisone taper. (3) Atrial fibrillation: (4) Chronic anticoagulation: (5) Pulmonary HTN: (6) Valvular disease: (7) Bilateral lower extremity edema: (8) Venous stasis dermatitis of both lower extremities: (9) COPD (chronic obstructive pulmonary disease): (10) Anemia: (11) Hypomagnesemia: (12) Hypertension: Notes For Next Care Provider If pts sx do not improve it is recommended he be seen by Dr. Briseno with [facility] for corticosteriod injection. Medication Changes From Visit Prednisone taper. Admission HPI Per Admitting Provider Alberto Andre is an 79y/o M with PMHx significant for pulmonary nodules, COPD, pulmonary hypertension, chronic A-fib anticoagulated on warfarin, HTN, CAD, AV regurgitation, MV regurgitation, TV regurgitation, GERD without esophagitis, history of nonmelanoma skin cancer, CKD stage II, history of kidney stones and BPH with LUTS who presented to the ED via EMS for evaluation of L hip pain. History obtained from the patient, family at bedside and associated chart review. Has been experiencing L hip pain for the past week. Was seen by his PCP on 11/14/24. Diagnosed with sciatic nerve pain and prescribed prednisone taper course. No prior history of sciatica. Notes compliance with prednisone taper course. However, he was attempting to tie his L shoe yesterday when he felt a "popping" sensation in his L hip. Since then, he has been unable to tolerate bearing weight on his LLE due to pain. Pain radiates all the way down the LLE directly from the L hip. Does have some chronic lower back pain but no prior history of spinal surgery. No history of any hip surgeries either. L hip XR without evidence of fracture or dislocation. L hip CT with noted oste openia and mild degenerative changes but again no fracture or dislocation seen. Also no significant soft tissue hematoma/abscess and no evidence of osteomyelitis. Labs personally reviewed. WBC count elevated slightly at 12.49k however suspect this is reactive 2/2 pain. INR slightly supratherapeutic at 3.2, electrolytes stable. S/p 50mcg IV fentanyl x 2 via EMS en route to ED. Received 0.25mg IV Dilaudid in ED. Pain improved at rest upon evaluation. Did have some nausea in the ED but this resolved s/p dose of IV Zofran. Was unable to tolerate po intake this morning 2/2 pain and nausea. No reported episodes of vomiting. Denies any SOB or chest pain. Maintaining bowel and bladder control. No weakness or numbness/tingling in LLE. Notes he CANNOT have an MRI due to having a piece of metal in his eye. 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 Admission Exam Per Admitting Provider General: Elderly M, laying down in bed. Appears uncomfortable with movement. A+Ox3. Family at bedside. HEENT: Normocephalic, atraumatic. Conjunctivae normal. External ear and nose normal, oropharynx normal. Respiratory: Normal respiratory effort, lungs clear to auscultation bilaterally. No accessory muscle use. Cardiovascular: Mildly tachycardic rate. Irregularly irregular rhythm. Trace BLE edema. BLE venous stasis changes. Abdomen/GI: Normoactive bowel sounds, soft, nondistended. Nontender to palpation in all quadrants. Extremities/Musculoskeletal: + TTP of L hip and L low back. Unable to actively lift LLE off bed 2/2 pain. Neurologic: No overt focal deficits, CN's II-XI not formally tested but appear grossly intact bilaterally. Discharge Exam Gen: WD/WN, M, elderly, lying in bed, NAD, A&O x3 HEENT: Normocephalic, atraumatic, conjunctivae moist, sclerae anicteric, mucous membranes moist. Lung: Clear to Auscultation bilaterally, no wheezes/rales/rhonchi Heart:Irr/Irr Abdomen: Soft, NT, ND +BS x 4 Extremities: No edema, L lateral thigh edema noted, no erythema, pain to palpation in the greater trochanter region Skin: Warm, no rash, negative turgor. Updated Medication List Medication Instructions Recorded Confirmed Type lisinopril 40 mg tablet 40 mg PO QAM 06/14/18 11/17/24 History [id number] 300 mcg-K 60 1 tab PO QAM 06/22/18 11/17/24 History mcg-lycop 600 mcg-lutein 300 mcg tablet (Centrum Silver Men) triamcinolone acetonide 0.1 % 1 applic topical BID PRN Rash on 06/22/18 11/17/24 History topical cream BLE albuterol sulfate 90 mcg/actuation 2 puff inhalation Q4 PRN wheezing 02/21/22 11/17/24 History aerosol inhaler or dyspnea warfarin 5 mg tablet See Rx Instructions .Route .COMPLEX 02/21/22 11/17/24 History spironolactone 25 mg tablet 12.5 mg PO DAILY 07/20/23 11/17/24 History torsemide 20 mg tablet 20 mg PO DAILY 07/20/23 11/17/24 History Lactobacillus acidophilus 1,000 mmu cells PO DAILY 11/17/24 11/17/24 History apple cider vinegar 300 mg tablet 300 mg PO TID 11/17/24 11/17/24 History ascorbic acid (vitamin C) 500 mg 500 mg PO DAILY 11/17/24 11/17/24 History tablet (Vitamin C With Corin Hips) cholecalciferol (vitamin D3) 10 10 mcg PO DAILY 11/17/24 11/17/24 History mcg (400 unit) tablet (Vitamin D3) glucosamine sulfate 1,000 mg tablet 1,000 mg PO QAM 11/17/24 11/17/24 History omeprazole 20 mg capsule,delayed 20 mg PO DAILY 11/17/24 11/17/24 History release selenium 50 mcg tablet 50 mcg PO DAILY 11/17/24 11/17/24 History zinc 50 mg tablet 50 mg PO DAILY 11/17/24 11/17/24 History prednisone 20 mg tablet See Taper PO QAM #11 tabs 11/19/24 Rx Hospital Stay Data Consultations 11/17/24 13:19 ED Decision to Admit Stat 11/17/24 14:01 Consult Orthopedic Surgery Routine 11/17/24 15:08 Consult Orthopedic Spine Surgery Routine Diagnostic Imagining Performed Hip X-Ray 11/17/24 11:12 XR hip LT min 2V CLINICAL HISTORY: left hip pain COMPARISON: None FINDINGS: There are atherosclerotic calcifications. No fracture or dislocation seen. No significant degenerative change of the left hip. IMPRESSION: No fracture seen. ACT 112: Negative or not required by law. Electronically signed by: Franko Coombs M.D. 11/17/2024 11:[address] 11/17/24 11:44 CT hip LT wo con CLINICAL HISTORY: left hip pain and swelling COMPARISON STUDY: X-ray earlier today FINDINGS: There is osteopenia. There are minimal degenerative changes at the left hip. No fracture or dislocation seen. No significant soft tissue hematoma or abscess. There are atherosclerotic calcifications. No evidence of osteomyelitis. IMPRESSION: No fracture seen. ACT 112: Negative or not required by law. Electronically signed by: Franko Coombs M.D. 11/17/2024 12:[address] 11/17/24 14:02 HISTORY: Lower back pain radiating down the left hip leg. TECHNIQUE: Helical CT imaging of the lumbar spine was performed without the use of IV contrast. Images are presented in axial, sagittal, and coronal reformats. COMPARISON: None. FINDINGS: Lumbar spine alignment is maintained. No significant listhesis is seen. The vertebral body heights are preserved without compression deformity. Multilevel degenerative disc disease is most pronounced and moderate at L5-S1. There is multilevel lumbar facet arthrosis. Multilevel central canal stenosis related to posterior disc osteophyte complex, which is most pronounced and moderate at L2-3-4. There is multilevel bilateral neural foraminal stenosis, which is most pronounced and severe bilaterally at L5-S1 with compression of both exiting L5 nerves. Moderate atherosclerotic vascular disease. Ectasia of the abdominal aorta and common iliac arteries. Left nephrolithiasis with a 0.4 cm stone. Extensive colonic diverticulosis. Lung bases are clear. IMPRESSION: 1. No acute osseous abnormality. 2. Moderate multilevel degenerative spondylosis of the lumbar spine with multilevel central canal and neuroforaminal stenosis. Lumbar spine MRI could be considered for more sensitive evaluation of the degree of canal and foraminal stenosis 3. Colonic diverticulosis. Left nephrolithiasis. Electronically signed by Brody Love 11-17-2024 2:59 PM Pending Results Patient Have Any Pending Studies at Discharge: No Discharge Instructions Given to Patient (Per Discharging Provider) MEDICATION CHANGES: NEW MEDICATIONS 1. Prednisone 20mg tablets * Take 40mg ( 2 tablets ) by mouth for 1 more day, next dose on 11/20/24. * Take 30mg ( 1.5 tablets) by mouth for 3 days * Take 20mg ( 1 tablet) by mouth for 3 days * Take 10mg (0.5 tablet) by mouth daily for 3 days then stop. Please continue all other medications as prescribed. Your warfarin will be due tonight, 11/19/24, in the evening. You may use Tylenol 500mg every 4-6 hours as needed for pain. It is recommended you order picker/assembler over the counter lidocaine patch 4%, apply to left hip for 12 hours and remove for 12 hours. SUMMARY OF TEST RESULTS: You were admitted to hospital due to severe Left hip pain and difficulty walking. You were found to have bursitis of your left hip. You are being treated with prednisone. You were also found to have degenerative changes to your lumbar spine with associated spinal stenosis. We do not believe this is causing your current pain. PENDING TEST RESULTS: None RECOMMENDATIONS FOR FOLLOW-UP: Please follow up with primary care provider as scheduled. Please use a walker for ambulation until cleared from physical therapy. If your symptoms still persist despite prednisone treatment it is recommended you contact Orthopedic Dr. Shay office. You likely would benefit from a steroid injection to your Left hip bursa sac. It is recommended you abstain from smoking cigarettes. OTHER INSTRUCTIONS: Seek medical attention if you have: * temperature above 101 * chest pain or trouble breathing * abdominal pain, nausea, vomiting * diarrhea, dark stools or bloody stools * any unanswered questions or concerns Call 911 if symptoms are severe. Please take good care of yourself. It has been a pleasure taking care of you. Please take care of yourself. If you have any questions regarding your recent hospitalization please contact [facility] [address] and [facility] @ [phone]. Total Time Total Time Spent Total Time Spent (In Minutes): 40
== END 2024-11-19 12:50 | disposition home or self-care (01) | DRG 552 ==
LOC: ED 10:52 → EDINP 13:33 → SUATTDRO 13:33 → 2W 16:51 → 3E 11-18 23:19